=== PATIENT | female | born 1945 | race Caucasian/White ===

== ENCOUNTER 2020-12-04 14:49 | Outpatient (CLI) | payer MEDICARE, SELFPAY ==
--- NOTE | ~2020-12-04 | XR_ITS ---
XR_CERV2-3V_CR DATE: 12/04/2020 15:31 INDICATION: Neck pain TECHNIQUE: AP, open-mouth, lateral, swimmer's views COMPARISON: None FINDINGS: Diffuse osteopenia. C1 and C2 are normally aligned and the odontoid process is intact. No fracture or prevertebral soft t issue swelling is detected. There is 2 mm anterolisthesis at C4-5. There is mild degenerative disc disease at the upper and mid cervical spine and moderate to severe de generative disc disease at C5-6 and C6-7. There is degenerative change at the apophyseal joints throughout the cervical spine. IMPRESSION: Extensive cervical spondylosis Reviewed, dictated and finalized at Location [facility]. Reviewed, dictated and finalized at location A.
--- NOTE | ~2020-12-04 | XR_ITS ---
XR thoracic spine 2V DATE: 12/04/2020 15:31 INDICATION: Osteoporosis TECHNIQUE: AP, lateral, swimmer views COMPARISON: None FINDINGS: There is severe degenerative disc disease at C5-6 and C6-7. There is diffuse idiopathic skeletal hyperostosis of the thoracic and upper lumbar spine. No fracture or dislocation or bone destruction is evident. IMPRESSION: Prominent degenerative disc disease of lower cervical spine Diffuse idiopathic skeletal hyperostosis of the thoracic spine Reviewed, dictated and finalized at location A.
--- NOTE | ~2020-12-04 | XR_ITS ---
EXAMINATION: XR mandible min 4V EXAM DATE: 12/04/2020 15:31 INDICATION: M81.0 - Age-related osteoporosis without current pathological fracture . TECHNIQUE: Mandible frontal, bilateral lateral projections with angulation. Steep frontal projection . (4 images) There is no prior study for comparison. FINDINGS: The temporomandibular joints are unremarkable, no dislocation and evidence of only mild os teoarthritis. There are no acute fractures identified. Dental hardware. The soft tissue is unremarkab le. IMPRESSION: 1. Mild bilateral TMJ osteoarthritis. Reviewed, dictated and finalized at location A.
== END 2020-12-04 14:50 | disposition home or self-care (01) ==
LOC: ANHIMG 14:52
PROVIDERS: PCP Internal Medicine; Visit Provider Internal Medicine
DX: M81.0 Age-related osteoporosis without current pathological fracture (principal); M40.209 Unspecified kyphosis, site unspecified; M50.30 Other cervical disc degeneration, unspecified cervical region; M48.14 Ankylosing hyperostosis [Forestier], thoracic region; M47.892 Other spondylosis, cervical region
CPT/HCPCS: 70110; 72040; 72070

== ENCOUNTER 2020-12-25 15:31 | Outpatient (CLI) | payer MEDICARE, SELFPAY ==
--- NOTE | ~2020-12-25 | CT_ITS ---
EXAMINATION: CT abdomen pelvis wo con DATE: 12/25/2020 15:49 INDICATION: Hematuria TECHNIQUE: Computed tomography (CT) of the abdomen and pelvis was performed without intravenous contr ast. The dose-length product (DLP) was 705.12 mGy-cm. Automated exposure control and iterative recons truction technique were employed. COMPARISON: None FINDINGS: There are subpleural reticular and groundglass opacities of the visualized lung bases with an appearance consistent with chronic interstitial lung disease in a pattern of nonspecific interstit ial pneumonia (NSIP). The heart size is normal. The liver, spleen, pancreas, gallbladder, and adrenal glands are normal. The kidneys are unremarkable. No stones are identified in the kidneys or proximal ureters. The distal ureters and bladder are obscured by streak artifact from bilateral hip arthropla sties. There is no hydronephrosis or hydroureter. Colonic diverticulosis is present without evidence of diverticulitis. No pathologically enlarged abdominal or pelvic lymph nodes are identified. There i s no free intraperitoneal gas or evidence of bowel obstruction. There are bridging osteophytes at mul tiple levels in the visualized thoracic spine, consistent with diffuse idiopathic skeletal hyperostos is (DISH). There is moderate lumbar spondylosis. IMPRESSION: 1. No CT correlate for the patient's symptoms. Bladder is not evaluated due to streak artifact from h ip arthroplasties. Reviewed, dictated and finalized at location B. IMPRESSION: 1. No CT correlate for the patient's symptoms. Bladder is not evaluated due to streak artifact from hip arthroplasties.
== END 2020-12-25 15:32 | disposition home or self-care (01) ==
LOC: ANHIMG 15:32
PROVIDERS: PCP Internal Medicine; Visit Provider Internal Medicine
DX: R31.9 Hematuria, unspecified (principal)
CPT/HCPCS: 74176

== ENCOUNTER 2021-01-08 01:05 | Day surgery (SDC) | payer MEDICARE, SELFPAY ==
[2020-12-26 14:46] VITALS: BMI 31.2
--- NOTE | 2021-01-08 07:22 | P.HP_ITS ---
History of Present Illness History of Present Illness Consent: Risks, benefits, and alternatives have been discussed and questions answered. Patient agrees to proceed with procedure. Chief complaint: hx of colon polyps Narrative: Merari Elmore is a 75 year old female Here for colon cancer screening. She has a history of polyps Review of Systems Review of Systems: All systems reviewed & are unremarkable except as noted in HPI and below PMFSH Past Medical History Medical History Abnormal CT scan Anxiety with depression BMI 31.0-31.9,adult Breast cancer screening DJD (degenerative joint disease) of cervical spine Dry eyes Elevated homocysteine Encounter to establish care FHx: type 2 diabetes mellitus Follow up Hematuria Hx of colonic polyps Hyperlipidemia Hypothyroidism (acquired) On intermodal customer service drug therapy Osteoporosis Pre-diabetes Surgical History Surgical History History of total replacement of both hip joints History of total right knee replacement Hx of tonsillectomy Family History Family History Father Cerebrovascular accident Other Family history of malignant neoplasm of breast Social History Social History Smoking status: Never smoker Alcohol intake: current Living arrangements: alone Spiritual care concerns: No Meds Home Medications and Allergies Home Medications Medication Instructions Recorded Confirmed Type calcium citrate 250 mg 1 tablet PO DAILY 11/26/20 01/08/21 History calcium-vitamin D3 5 mcg (200 unit) tablet cetirizine 10 mg tablet 10 mg PO DAILY 11/26/20 01/07/21 History cholecalciferol (vitamin D3) 125 125 mcg PO DAILY 11/26/20 01/07/21 History mcg (5,000 unit) capsule ezetimibe 10 mg tablet 10 mg PO DAILY 11/26/20 01/07/21 History levothyroxine 100 mcg capsule 100 mcg PO DAILY 11/26/20 01/07/21 History venlafaxine 75 mg capsule,extended 75 mg PO DAILY #90 cap 11/26/20 01/07/21 Rx release 24 hr folic acid 800 mcg tablet 0.8 mg PO DAILY 01/05/21 01/08/21 History mecobalamin (vitamin B12) 1,000 1,000 mcg SUBLINGUAL DAILY 01/05/21 01/08/21 History mcg disintegrating tablet,sublingual Allergies Allergy/AdvReac Type Severity Reaction Status Date / Time No Known Allergies Allergy Verified 01/05/21 14:48 Exam Resp: Auscultation: clear to auscultation bilaterally Cardio: Rate: regular rate Rhythm: regular rhythm GI: GI Palp: Yes Soft to palpation and No Tenderness to palpation present (GI) Assessment and Plan Assessment and plan (1) Colon cancer screening: Code(s): Z12.11 - Encounter for screening for malignant neoplasm of colon Status: Acute Assessment and Plan: Colonoscopy with possible biopsy or polypectomy or cautery or injection of substances.
[2021-01-08 08:02] VITALS: BP 134/56; PULSE 77; RESP 18; TEMP 36.3; O2SAT 98; BMI 30.7
[2021-01-08] MEDS: LACTATED RINGERS 1,000 ML 150 ML IV CONT (08:20)
--- NOTE | 2021-01-08 08:43 | P.PNAN_ITS ---
Anes - Initial Pre Proc Eval Procedure: Operation Date: 01/08/21 09:00 Proposed Procedures p Screening Colonoscopy - Anson Jay MD Date/Time: 01/08/21 08:43 Surgeon: Anson Jay MD Pre Op Diagnosis: hx of colon polyps Patient Data Age: 75 Gender: F Height: 1.6 m Weight: 78.83 kg Last Vital Signs Temp 97.3 F L 01/08/21 08:02 Pulse 77 01/08/21 08:02 Resp 18 01/08/21 08:02 BP 134/56 L 01/08/21 08:02 Pulse Ox 98 01/08/21 08:02 Allergies Allergy/AdvReac Type Severity Reaction Status Date / Time No Known Allergies Allergy Verified 01/05/21 14:48 Home Medications Medication Instructions Recorded Confirmed Type calcium citrate 250 mg 1 tablet PO DAILY 11/26/20 01/08/21 History calcium-vitamin D3 5 mcg (200 unit) tablet cetirizine 10 mg tablet 10 mg PO DAILY 11/26/20 01/07/21 History cholecalciferol (vitamin D3) 125 125 mcg PO DAILY 11/26/20 01/07/21 History mcg (5,000 unit) capsule ezetimibe 10 mg tablet 10 mg PO DAILY 11/26/20 01/07/21 History levothyroxine 100 mcg capsule 100 mcg PO DAILY 11/26/20 01/07/21 History venlafaxine 75 mg capsule,extended 75 mg PO DAILY #90 cap 11/26/20 01/07/21 Rx release 24 hr folic acid 800 mcg tablet 0.8 mg PO DAILY 01/05/21 01/08/21 History mecobalamin (vitamin B12) 1,000 1,000 mcg SUBLINGUAL DAILY 01/05/21 01/08/21 History mcg disintegrating tablet,sublingual Patient hx anesthesia problems: none Family hx anesthesia problems: none PMFSH Past Medical History Medical History Abnormal CT scan Anxiety with depression BMI 31.0-31.9,adult Breast cancer screening DJD (degenerative joint disease) of cervical spine Dry eyes Elevated homocysteine Encounter to establish care FHx: type 2 diabetes mellitus Follow up Hematuria Hx of colonic polyps Hyperlipidemia Hypothyroidism (acquired) On residential drug therapy Osteoporosis Pre-diabetes Surgical History Surgical History History of total replacement of both hip joints History of total right knee replacement Hx of tonsillectomy Family History Family History Father Cerebrovascular accident Other Family history of malignant neoplasm of breast Social History Social History Smoking status: Never smoker Alcohol intake: current Living arrangements: alone Spiritual care concerns: No Anes - Eval Final PreProcedure Day of Procedure 01/08/21 08:43 Patient weight: overweight Heart: regular rate and rhythm Lungs: clear to auscultation Airway: Mallampati scale class II Neurological: alert and oriented Last oral intake: >/= 8 hours ASA classification: III Emergent: no Anesthetic plan: proceed Anesthesia type and monitoring: general GIVS and standard monitoring Informed Consent: The patient's anesthetic plan and its attendant risks and benefits were discussed with the patient/family/POA. Questions were solicited and answers provided to the satisfaction of the patient/family/POA.
[2021-01-08 09:17] VITALS: BP 88/58; PULSE 89; RESP 20; O2SAT 97
[2021-01-08 09:27] VITALS: BP 92/53; PULSE 86; RESP 20; O2SAT 95
[2021-01-08 09:37] VITALS: BP 112/51; PULSE 76; RESP 16; O2SAT 100
== END 2021-01-08 09:53 | disposition home or self-care (01) ==
PROVIDERS: PCP Internal Medicine; Visit Provider Internal Medicine Gastroenterology
PROC: 0DJD8ZZ Inspection of Lower Intestinal Tract, Via Natural or Artificial Opening Endoscopic (ICD-10-PCS; CPT 45378; principal; 2021-01-08 09:00)
DX: Z12.11 Encounter for screening for malignant neoplasm of colon (principal); Z86.010 Personal history of colon polyps; K57.30 Diverticulosis of large intestine without perforation or abscess without bleeding; E78.5 Hyperlipidemia, unspecified; E03.9 Hypothyroidism, unspecified; M47.812 Spondylosis without myelopathy or radiculopathy, cervical region; M81.0 Age-related osteoporosis without current pathological fracture; H04.129 Dry eye syndrome of unspecified lacrimal gland; R73.03 Prediabetes; F32.9 Major depressive disorder, single episode, unspecified; F41.9 Anxiety disorder, unspecified; Z96.643 Presence of artificial hip joint, bilateral; Z96.651 Presence of right artificial knee joint; Z79.899 Other long term (current) drug therapy
CPT/HCPCS: G0105; J2001; J2704; J7120

== ENCOUNTER 2021-01-23 10:00 | Emergency (ER) | payer MEDICARE, SELFPAY ==
--- NOTE | ~2021-01-23 | XR_ITS ---
EXAMINATION: XR chest 2V EXAM DATE: 01/23/2021 10:45 INDICATION: Palpitations. TECHNIQUE: Frontal and lateral projections of the chest obtained and reviewed. Comparison is made to prior examination from 2004. FINDINGS: Some prominent retrocardiac interstitial markings, could be small amount of atelectasis or pneumonia, clinical correlation. No pneumothorax or pleural effusion. Borderline heart size. There a re mild bony degenerative changes. Patient has diffuse idiopathic skeletal hyperostosis (DISH). IMPRESSION: Small amount of retrocardiac atelectasis or pneumonia. Reviewed, dictated and finalized at location A.
--- NOTE | 2021-01-23 10:05 | ECG_ITS ---
Measurements Intervals [place] Rate: 92 P: [place]: 0 QRS: -11 QRSD: 91 T: 83 QT: 342 QTc: 425 Interpretive Statements ATRIAL FIBRILLATION LEFT VENTRICULAR HYPERTROPHY WITH ST-T CHANGE INFERIOR INFARCT, AGE INDETERMINATE BASELINE ARTIFACT- I, II, III, AVR, AVL, AVF ABNORMAL ECG Electronically Signed On 01-23-2021 19:00:43 CDT by Hussain Hagan D.O.
[2021-01-23 10:08] VITALS: BP 152/69; PULSE 108; RESP 14; TEMP 36.2; O2SAT 96
[2021-01-23 12:00] VITALS: BP 118/78; BP 121/75; PULSE 78; PULSE 89; RESP 18; O2SAT 100
--- NOTE | 2021-01-23 12:57 | ED.ARRPALP ---
HPI - Arrhythmia/Palpitations General Chief Complaint: Arrhythmia/Palpitations Stated Complaint: afib Time Seen by Provider: 01/23/21 12:49 History of Present Illness HPI narrative: Patient is a 75-year-old female who presents ER with an abnormal heart rhythm. Patient was at her PCP for routine evaluation when it was found that she was in atrial fibrillation on EKG. She has no chest pain or chest pressure. No exertional fatigue or shortness of breath. She does not feel lightheaded and does not feel any palpitations. No previous history of atrial fibrillation however her mother and her daughter both have history of atrial fibrillation. Patient is on no rate control medications and is not on a blood thinner. No previous stroke. No history of heart failure or diabetes. Related Data Home Medications Medication Instructions Recorded Confirmed calcium citrate 250 mg 1 tablet PO DAILY 11/26/20 01/08/21 calcium-vitamin D3 5 mcg (200 unit) tablet cetirizine 10 mg tablet 10 mg PO DAILY 11/26/20 01/07/21 cholecalciferol (vitamin D3) 125 125 mcg PO DAILY 11/26/20 01/07/21 mcg (5,000 unit) capsule ezetimibe 10 mg tablet 10 mg PO DAILY 11/26/20 01/07/21 levothyroxine 100 mcg capsule 100 mcg PO DAILY 11/26/20 01/07/21 folic acid 800 mcg tablet 0.8 mg PO DAILY 01/05/21 01/08/21 mecobalamin (vitamin B12) 1,000 1,000 mcg SUBLINGUAL DAILY 01/05/21 01/08/21 mcg disintegrating tablet,sublingual Allergies Allergy/AdvReac Type Severity Reaction Status Date / Time No Known Allergies Allergy Verified 01/23/21 12:34 Review of Systems Review of Systems: All systems reviewed & are unremarkable except as noted in HPI and below Constitutional: Constitutional: Denies chills, Denies fever(s) and Denies weakness ENT: Denies nasal congestion and Denies sore throat Cardiovascular: Cardiovascular: Denies chest pain, Denies rapid heart rate and Denies radiating jaw, neck or arm pain Respiratory: Respiratory: Denies cough, Denies dyspnea and Denies wheezing Gastrointestinal: Gastrointestinal: Denies abdominal pain, Denies nausea and Denies vomiting Neurologic: Denies dizziness, Denies focal weakness and Denies numbness [facility] Past Medical History Medical History Abnormal CT scan Anxiety with depression BMI 31.0-31.9,adult Breast cancer screening DJD (degenerative joint disease) of cervical spine Dry eyes Elevated homocysteine Encounter to establish care FHx: type 2 diabetes mellitus Follow up Hematuria Hx of colonic polyps Hyperlipidemia Hypothyroidism (acquired) On skilled nursing drug therapy Osteoporosis Pre-diabetes Surgical History Surgical History History of total replacement of both hip joints History of total right knee replacement Hx of tonsillectomy Family History Family History Father Cerebrovascular accident Other Family history of malignant neoplasm of breast Social History Social History Smoking status: Never smoker Alcohol intake: current Spiritual care concerns: No Exam Narrative: GENERAL: Well-appearing, well-nourished, and in no acute distress. HEAD: Normocephalic, atraumatic. EYES: PERRL and EOMI. CHEST: Clear to auscultation. No respiratory distress. HEART: Irregular regular rate and rhythm. Normal peripheral pulses. ABDOMEN: Soft, nontender, nondistended. EXTREMITIES: Normal range of motion. No edema. SKIN: Warm, dry, no rash. NEURO: Alert and oriented x3. PSYCH: Normal mood and affect. Course Course Emergency Course: Discussed with Mary from [facility]. Start patient on metoprolol 12.5 mg twice daily as well as Eliquis 5 mg twice daily. Recommends follow-up in clinic for discussion for cardioversion. Patient verbalized understanding. She is asymptomatic
[2021-01-23 13:02] LABS: Basophils Absolute Auto 0.1 K/mm3 (0.0-0.1); Basophils Percent Auto 0.7 % (0.2-1.2); Eosinophils Absolute Auto 0.2 K/mm3 (0-0.3); Hemoglobin 14.3 g/dL (12.0-15.0); Immature Granulocyte Absolute 0.03 K/mm3 (0.00-0.031); Immature Granulocyte Percent A 0.4 % (0-0.5); Lymphocytes Absolute Auto 1.66 K/mm3 (0.9-3.2); Lymphocytes Percent Auto 21.7 % (18.3-44.2); Mean Corpuscular HGB Conc 32.5 g/dl (32-36); Mean Corpuscular Hemoglobin 31.4 pg (26-34); Mean Corpuscular Volume 96.7 fl (80-100); Mean Platelet Volume 10.5 fl (7.4-10.4); Monocytes Absolute Auto 0.7 K/mm3 (0.1-0.6); Monocytes Percent Auto 9.5 % (2.6-8.5); Neutrophils Percent Auto 65.7 % (45.5-73.1); Platelet Count Result 268 k/mm3 (150-375); Red Blood Count 4.55 M/mm3 (4.2-5.4); Red Cell Distribution Width 13.2 % (11.5-14.5); White Blood Count 7.7 K/mm3 (4.5-10.0)
[2021-01-23 13:14] LABS: Prothrombin Time 12.8 Seconds (11.1-14.7)
[2021-01-23 13:15] LABS: Partial Thromboplastin Time 28.6 SECONDS (22.3-36.8)
[2021-01-23 13:16] LABS: Anion Gap 6 mmol/L (8-16); Blood Urea Nitrogen 27 mg/dL (7-17); Calcium 9.7 mg/dL (8.4-10.2); Carbon Dioxide 27 mmol/L (22-30); Chloride 104 mmol/L (98-107); Estimated CRCL calculation 39 ml/min; Estimated Glomerular Filt Rate 48; Glucose 94 mg/dL (65-110); Potassium 4.2 mmol/L (3.4-5.0); Sodium 137 mmol/L (137-145)
[2021-01-23 13:27] LABS: Troponin I < 0.012 ng/mL (0.000-0.034)
[2021-01-23 14:00] VITALS: BP 120/75; PULSE 78; RESP 18; O2SAT 100
[2021-01-23 14:01] LABS: Magnesium 2.3 mg/dL (1.6-2.3)
[2021-01-23 14:13] LABS: Troponin I < 0.012 ng/mL (0.000-0.034)
== END 2021-01-23 15:57 | disposition home or self-care (01) ==
PROVIDERS: Emergency Medicine; Emergency Provider Emergency Medicine; PCP Internal Medicine
DX: I48.91 Unspecified atrial fibrillation (principal); E78.5 Hyperlipidemia, unspecified; E03.9 Hypothyroidism, unspecified; M81.0 Age-related osteoporosis without current pathological fracture; R73.03 Prediabetes; M47.812 Spondylosis without myelopathy or radiculopathy, cervical region; Z86.010 Personal history of colon polyps; Z96.643 Presence of artificial hip joint, bilateral; Z96.651 Presence of right artificial knee joint; I51.7 Cardiomegaly; R94.31 Abnormal electrocardiogram [ECG] [EKG]
CPT/HCPCS: 36415; 71046; 80048; 83735; 84484; 85025; 85610; 85730; 93005; 99284

== ENCOUNTER 2021-02-17 09:52 | Outpatient (CLI) | payer MEDICARE, SELFPAY ==
--- NOTE | 2021-02-17 09:56 | ECHO_ITS ---
Patient Info Name: Merari Elmore Age: 75 years : 1945 Gender: Female Ht: 63 in Wt: 178 lbs BSA: 1.92 m2 HR: 91 bpm BP: 127 / 65 mmHg Exam Date: 02/17/2021 9:59 AM Exam Location: [facility] Patient Status: Outpatient Admit Date: 02/17/2021 Staff Ordering Physician: Homer Reveles MD [place] Worker: GRACIA Attending Provider: Homer Reveles MD Referring Physician: Abdirizak BROWN; Exam Type: CA echo doppler color flow Study Info Indications I48.1 - Persistent atrial fibrillation Complete two-dimensional, color flow and Doppler transthoracic echocardiogram is performed. Summary 1. Complete two-dimensional, color flow and Doppler transthoracic echocardiogram is performed. 2. Left ventricular chamber dimension is mildly enlarged. 3. Left ventricular systolic function is normal, estimated at 55-60%. 4. The left ventricular diastolic function is abnormal. 5. E/e' 15 is elevated. 6. Left atrial chamber dimension is severely enlarged. 7. There is mild aortic valve sclerosis. 8. There is mild to moderate aortic valve regurgitation. 9. The mitral valve has moderately calcified annulus. 10. There is mild to moderate mitral valve regurgitation. 11. No pulmonary hypertension, estimated pulmonary arterial systolic pressure is 24 mmHg. Left Ventricle E/e' 15 is elevated. Left ventricular chamber dimension is mildly enlarged. Left ventricular systolic function is normal, estimated at 55-60%. The left ventricular diastolic function is abnormal. Right Ventricle Right ventricular chamber dimension is normal. Right ventricular systolic function is normal. Left Atria Left atrial chamber dimension is severely enlarged. Right Atria Right atrial chamber dimension is normal. Aortic Valve The aortic valve is trileaflet. There is mild aortic valve sclerosis. There is no aortic valve stenosis. There is mild to moderate aortic valve regurgitation. Pulmonic Valve There is no pulmonic regurgitation. Mitral Valve The mitral valve has moderately calcified annulus. There is no mitral valve stenosis. There is mild to moderate mitral valve regurgitation. Tricuspid Valve There is no tricuspid valve regurgitation. No pulmonary hypertension, estimated pulmonary arterial systolic pressure is 24 mmHg. Pericardium/Pleural There is no pericardial effusion. Inferior Vena Cava Normal inferior vena cava with >50% collapse upon inspiration consistent with normal right atrial pressure, 5 mmHg. Aorta The aortic root size at the sinus of Valsalva is normal. Left Ventricular Outflow Tract Name Value Normal LVOT 2D LVOT Diameter 2.2 cm LVOT Doppler LVOT Peak Gradient 17 mmHg LVOT Mean Gradient 5 mmHg LVOT VTI 30 cm LVOT VTI/AV VTI Ratio 0.9 LVOT Stroke Volume 115 ml LVOT CO 24.0 l/min LVOT CI 12.5 l/min/m2 Mitral Valve
== END 2021-02-17 09:53 | disposition home or self-care (01) ==
PROVIDERS: PCP Internal Medicine; Visit Provider Internal Medicine
DX: I48.91 Unspecified atrial fibrillation (principal); I34.0 Nonrheumatic mitral (valve) insufficiency; I35.1 Nonrheumatic aortic (valve) insufficiency
CPT/HCPCS: 93306

== ENCOUNTER → 2021-02-20 09:39 | Outpatient (CLI) | payer MEDICARE, SELFPAY ==
--- NOTE | ~2021-02-20 | CT_ITS ---
EXAMINATION:CT chest high resolution wo co DATE: 02/20/2021 09:55 INDICATION: Abnormal findings on diagnostic imaging. TECHNIQUE: Computed tomography (CT) of the chest was performed without intravenous contrast. Automate d exposure control and iterative reconstruction technique were employed. The dose-length product (DLP ) was 320.54 mGy-cm. COMPARISON: Chest 2 views 01/23/2021, CT abdomen and pelvis 12/25/2020 FINDINGS: Lung volumes are small. There is widespread septal thickening in the lungs with a periphera l and lower lung predominance associated with groundglass opacities. No bronchiectasis or honeycombin g. No pleural effusion. The heart size is normal. No pericardial effusion. There are bridging endplat e osteophytes at multiple levels in the spine, consistent with diffuse idiopathic skeletal hyperostos is (DISH). There is mild chronic height loss of multiple vertebral bodies. IMPRESSION: 1. Chronic interstitial lung disease in a pattern of nonspecific interstitial pneumonia (NSIP). Reviewed, dictated and finalized at location A. IMPRESSION: 1. Chronic interstitial lung disease in a pattern of nonspecific interstitial p neumonia (NSIP).
== END ==
PROVIDERS: PCP Internal Medicine; Visit Provider Internal Medicine
DX: R93.89 Abnormal findings on diagnostic imaging of other specified body structures (principal); J84.9 Interstitial pulmonary disease, unspecified
CPT/HCPCS: 71250

== ENCOUNTER 2021-04-21 11:30 | Outpatient (CLI) | payer MEDICARE, SELFPAY ==
[2021-04-21 12:25] LABS: Rheumatoid Factor < 8.6 IU/ML (<12)
[2021-04-23 11:39] LABS: Anti Cyclic Citrullinated Pept <16 Units (<20)
[2021-04-23 20:58] LABS: JO 1 Antibody <1.0; Scleroderma 70 Antibody <1.0
[2021-04-23 21:13] LABS: SS-A <1.0; SS-B <1.0
[2021-04-23 21:33] LABS: ANA Cascade Screen Positive (Negative); Chromatin (Nucleosomal) Ab <1.0; RNP Antibody 5.1; Sm Antibody <1.0; Sm/RNP Antibody <1.0
== END 2021-04-21 11:31 | disposition home or self-care (01) ==
LOC: ANHLAB 11:44
PROVIDERS: PCP Internal Medicine; Visit Provider Internal Medicine Pulmonary Disease
DX: J84.9 Interstitial pulmonary disease, unspecified (principal)
CPT/HCPCS: 36415; 86038; 86200; 86235; 86430

== ENCOUNTER 2021-06-04 00:06 | Day surgery (SDC) | payer MEDICARE, SELFPAY ==
[2021-06-03 14:47] VITALS: BMI 31.2
[2021-06-04] VITALS (10 sets, daily range): BP systolic 105–140; BP diastolic 48–62; PULSE 50–75; RESP 13–18; TEMP 36.6; O2SAT 96–100; BMI 31.6
--- NOTE | 2021-06-04 07:30 | ECG_ITS ---
Measurements Intervals [place] Rate: 69 P: 71 [place]: 201 QRS: -5 QRSD: 85 T: 145 QT: 302 QTc: 325 Interpretive Statements SINUS RHYTHM FREQUENT ATRIAL PREMATURE COMPLEXES EARLY PRECORDIAL R/S TRANSITION INFERIOR INFARCT, AGE INDETERMINATE BORDERLINE ST-T WAVE ABNORMALITY- HIGH LATERAL LEADS BASELINE ARTIFACT- I, II, AVR ABNORMAL ECG Electronically Signed On 06-04-2021 10:01:16 MATHEMATICAL STATISTICIAN by Hussain Hagan D.O.
[2021-06-04 08:16] LABS: Anion Gap 7 mmol/L (8-16); Blood Urea Nitrogen 28 mg/dL (7-17); Calcium 9.3 mg/dL (8.4-10.2); Carbon Dioxide 29 mmol/L (22-30); Chloride 105 mmol/L (98-107); Estimated CRCL calculation 29 ml/min; Estimated Glomerular Filt Rate 34; Glucose 95 mg/dL (65-110); Magnesium 2.3 mg/dL (1.6-2.3); Potassium 4.2 mmol/L (3.4-5.0); Sodium 141 mmol/L (137-145)
--- NOTE | 2021-06-04 09:00 | ECG_ITS ---
Measurements Intervals [place] Rate: 72 P: [place]: 0 QRS: -1 QRSD: 91 T: 126 QT: 398 QTc: 437 Interpretive Statements ATRIAL FIBRILLATION CONSIDER INFERIOR INFARCT, AGE INDETERMINATE BORDERLINE ST ABNORMALITY- LATERAL LEADS BASELINE ARTIFACT- I, II, AVR, AVL,A VF, V4-V6 ABNORMAL ECG Electronically Signed On 06-04-2021 8:42:30 SUPERVISOR [employer]GAR by Hussain Hagan D.O.
--- NOTE | 2021-06-04 09:56 | WPDMODSED ---
Moderate Sedation Note-Pt Data Patient Data Allergies Allergy/AdvReac Type Severity Reaction Status Date / Time No Known Allergies Allergy Verified 06/04/21 08:21 Home Medications Medication Instructions Recorded Confirmed Type cholecalciferol (vitamin D3) 125 125 mcg PO DAILY 11/26/20 06/03/21 History mcg (5,000 unit) capsule levothyroxine 100 mcg capsule 100 mcg PO DAILY 11/26/20 06/03/21 History folic acid 800 mcg tablet 0.8 mg PO DAILY 01/05/21 06/03/21 History apixaban 5 mg tablet 5 mg PO BID #60 tablet 02/23/21 06/03/21 Rx ezetimibe 5 mg PO DAILY 06/03/21 06/03/21 History metoprolol succinate [Toprol XL] 25 mg PO BID 06/03/21 06/03/21 History Current Medications: Active Medications Sodium Chloride (Normal Saline Iv) 1,000 mls @ 30 mls/hr IV CONT .Q24H ARACELY Sedation/Anesthesia: No previous sedation/anesthesia problems (including family history). [facility] Past Medical History Medical History Abnormal CT scan Anxiety with depression Atrial fibrillation BMI 31.0-31.9,adult Breast cancer screening Cerumen impaction Cervicalgia DJD (degenerative joint disease) of cervical spine Dry eyes Elevated homocysteine Encounter for routine adult health examination without abnormal findings Encounter to establish care FHx: type 2 diabetes mellitus Follow up Hearing loss Hematuria Hx of colonic polyps Hyperlipidemia Hypothyroidism (acquired) Interstitial lung disease On intermediate accountant drug therapy Osteoporosis Pre-diabetes Surgical History Surgical History History of total replacement of both hip joints History of total right knee replacement Hx of bilateral hip replacements Hx of tonsillectomy Family History Family History Father Cerebrovascular accident Mother Atrial fibrillation Other Family history of malignant neoplasm of breast Social History Social History Smoking status: Never smoker Alcohol intake: never Living arrangements: alone Spiritual care concerns: No Mod Sed Physical Exam Physical Exam Pre Procedural Exam: Normal: Appearance, Eyes, Ears, Nose, Neck, Throat, Airway, Lungs, Heart Size, Heart Rate, Heart Rhythm, Neuro Exam, Abdomen, Liver, Kidneys, Spleen, Breasts, Genitalia, Extremities and Skin Hours since solid foods: 8 Hours since liquid intake: 8 Mallampati Classification: class 1 Internal Medicine - PN: Obj Da Vital Signs Vital Signs: Vital Signs - 24 hr 06/04/21 08:00 Temperature 36.6 C Pulse Rate 75 Respiratory Rate 13 Blood Pressure 140/55 L Pulse Oximetry 98 Meds/Results Medications: Active Medications Generic Name Dose Route Start Last Admin Trade Name Freq PRN Reason Stop Dose Admin Sodium Chloride 1,000 mls @ 30 mls/hr 06/04/21 07:30 Normal Saline Iv IV CONT .Q24H ARACELY Labs CBC & Chem 7: 06/04/21 07:49 Labs: Laboratory Results - last 24 hr 06/04/21 07:49 Sodium 141 Potassium 4.2 Chloride 105 Carbon Dioxide 29 Anion Gap 7 L BUN 28 H Creatinine 1.50 H Estim Creat Clear Calc 29 Estimated GFR 34 L Glucose 95 Calcium 9.3 Magnesium 2.3 ASA Classification/Sedation ASA Classification/Sedation ASA Class: I Emergent: No Risks: Risks, benefits and alternatives explained and patient/family accepted plan for sedation. Patient re-evaluated immediately prior to sedation.
--- NOTE | 2021-06-04 09:57 | PM.IMHP ---
H&P: HPI History of Present Illness Date/Time: 06/04/21 09:57 Patient is here for cardioversion Chief Complaint: Patient is here for cardioversion Narrative: This 76-year-old female with past medical history of hyperlipidemia, hypothyroidism, atrial fibrillation on Eliquis. Complains of shortness of breath on exertion. Due to persistent symptoms we brought her in here for cardioversion. Denies chest pain, lower limb edema, dizziness, syncope. Review of Systems Review of Systems: All systems reviewed & are unremarkable except as noted in HPI and below Constitutional: Constitutional: Denies chills, Denies fatigue, Denies fever(s), Denies headache(s) and Denies snoring Eyes: Eyes: Denies eye discharge and Denies loss of vision ENT: Denies dizziness, Denies headache(s), Denies nasal discharge and Denies sore throat Cardiovascular: Cardiovascular: Reports as per HPI, Denies chest pain, Denies syncope, Denies rapid heart rate, Denies leg edema, Reports dyspnea on exertion and Denies orthopnea Respiratory: Respiratory: Denies chest congestion, Denies cough, Reports dyspnea on exertion, Denies snoring and Denies wheezing Gastrointestinal: Gastrointestinal: Denies abdominal pain, Denies diarrhea, Denies nausea and Denies vomiting Genitourinary: Genitourinary: Denies hematuria, Denies urinary frequency, Denies dysuria and Denies flank pain Musculoskeletal: Musculoskeletal: Denies myalgias, Denies arthralgias and Denies joint swelling Neurologic: Denies Abnormal speech present, Denies dizziness, Denies syncope, Denies headache(s), Denies focal weakness and Denies loss of vision Psychiatric: Psychiatric: Denies anxiety and Denies depression Endocrine: Endocrine: Denies cold intolerance, Denies fatigue and Denies heat intolerance Hematologic/Lymphatic: Hematologic/Lymphatic: Denies easy bleeding and Denies easy bruising Allergic/Immunologic: Allergic/Immunologic: Denies urticaria and Denies wheezing PMFSH Past Medical History Medical History Abnormal CT scan Anxiety with depression Atrial fibrillation BMI 31.0-31.9,adult Breast cancer screening Cerumen impaction Cervicalgia DJD (degenerative joint disease) of cervical spine Dry eyes Elevated homocysteine Encounter for routine adult health examination without abnormal findings Encounter to establish care FHx: type 2 diabetes mellitus Follow up Hearing loss Hematuria Hx of colonic polyps Hyperlipidemia Hypothyroidism (acquired) Interstitial lung disease On intermediate designer drug therapy Osteoporosis Pre-diabetes Surgical History Surgical History History of total replacement of both hip joints History of total right knee replacement Hx of bilateral hip replacements Hx of tonsillectomy Family History Family History Father Cerebrovascular accident Mother Atrial fibrillation Other Family history of malignant neoplasm of breast Social History Social History Smoking status: Never smoker Alcohol intake: never Living arrangements: alone Spiritual care concerns: No Meds Home Medications and Allergies Home Medications Medication Instructions Recorded Confirmed Type cholecalciferol (vitamin D3) 125 125 mcg PO DAILY 11/26/20 06/03/21 History mcg (5,000 unit) capsule levothyroxine 100 mcg capsule 100 mcg PO DAILY 11/26/20 06/03/21 History folic acid 800 mcg tablet 0.8 mg PO DAILY 01/05/21 06/03/21 History apixaban 5 mg tablet 5 mg PO BID #60 tablet 02/23/21 06/03/21 Rx ezetimibe 5 mg PO DAILY 06/03/21 06/03/21 History metoprolol succinate [Toprol XL] 25 mg PO BID 06/03/21 06/03/21 History Allergies Allergy/AdvReac Type Severity Reaction Status Date / Time No Known Allergies Allergy Verified 06/04/21 08:21 Vital Signs Vital Signs - 24
--- NOTE | 2021-06-04 10:06 | WPDCARDVER ---
Cardioversion Cardioversion Date of procedure: 06/04/21 Procedure: 1. Moderate sedation that started at 9:40 a.m. and ended at 9:45 a.m. using 3 mg of Versed and 75 mcg fentanyl. A registered nurse was elliot casanova 2-electric cardioversion atrial fibrillation Pre-op diagnosis: Persistent symptomatic atrial fibrillation Post-op diagnosis: other (Sinus rhythm) Indications: Persistent shortness of breath exertion Description of procedure: After informed consent . Patient stated that she was taking Eliquis twice a day for the last 1 month. She took Eliquis and metoprolol this morning. We administered sedation and then after that 200 joules of synchronized cardioversion was applied with successful conversion to sinus rhythm with premature atrial contractions. Sedation: Moderate sedation that started at 9:40 a.m. and ended at 9:45 a.m. a total duration 5 minutes using 3 mg of Versed and 75 mcg of control. Adjust meds was Elliot casanova. Findings: Successful conversion of atrial fibrillation to sinus rhythm with PACs. Conclusion: Will discontinue metoprolol and start low does amiodarone to help keep her in sinus rhythm. EKG in our office in 2 weeks
[2021-06-04] MEDS: AMIODARONE 150 MG/D5W 100 ML 150 MG/100 ML BAG 600 MG IV CONT (11:05)
== END 2021-06-04 11:46 | disposition home or self-care (01) ==
PROVIDERS: PCP Internal Medicine; Visit Provider Internal Medicine Cardiovascular Disease
PROC: 5A2204Z Restoration of Cardiac Rhythm, Single (ICD-10-PCS; principal; 2021-06-04 09:00)
DX: I48.19 Other persistent atrial fibrillation (principal); E78.5 Hyperlipidemia, unspecified; E03.9 Hypothyroidism, unspecified; R73.03 Prediabetes; F41.8 Other specified anxiety disorders; J84.9 Interstitial pulmonary disease, unspecified; M81.0 Age-related osteoporosis without current pathological fracture; Z79.01 Long term (current) use of anticoagulants
CPT/HCPCS: 36415; 80048; 83735; 92960; J2250; J3010; J7040

== ENCOUNTER 2021-06-08 14:43 | Outpatient (CLI) | payer MEDICARE, SELFPAY ==
--- NOTE | 2021-06-09 13:00 | WPDPFTINT ---
PFT Procedure Performed PFT Procedure Performed Spirometry with Pre/Post Bronchodilator Plethysmography (Lung Vol) Diffusing Cap (DLCO) Flow Vol Loop PFT Interpretation DOS: 06/08/2021 REQUESTING: Dr Hickey REASON FOR TESTING: COPD PULMONARY FUNCTION TESTS Results are not reliable and reproducible. There were no flow volumes loops that were reproducible. Spirometry: FEV1 is 81% predicted, 1.6 L. This is normal. FVC is 71% which is mildly decreased. FEV1/ FVC ratio is 88% normal. There is no change with bronchodilator. Lung volumes: Total lung capacity is 66% which shows mild restriction. Residual volume is 63% normal. RV/TLC is within the normal range. There is no air trapping. Increased airway resistance mildly 139%. Diffusion: DLCO is 59% which is moderately decreased. This corrects for alveolar volume, DLCO /VA is 109. Flow volume loop: Flow volume loops are not reproducible. IMPRESSION: Mild restrictive pattern, moderate diffusion impairment with normal spirometry. Restriction can mask obstruction. There is no prior study to review. Lack of response to bronchodilator should not preclude use of clinically indicated. Angella Peter MD
--- NOTE | 2021-06-09 13:01 | WPDSIXMINUTE ---
Six Minute Walk Procedure Procedure Performed Pulmonary Stress Test (6 min walk) Six Minute Walk Six Minute Walk: DOS: 06/08/2021 REQUESTING: Dr Hickey REASON FOR TESTING: COPD SIX MINUTE WALK This test was conducted per ATS guidelines. The patient was on ambient air during the study. . The initial saturation is 96% and the pulse is 79. Blood pressure was 121/51. The patient walked for 6 minutes without stopping, completed a total of 900 ft/ 274.3 m. saturation did not drop below 92%. Pulse maximum was 105. During recovery patient returned saturation at 97% pulse was 92. IMPRESSION: This 6 minute walk study is normal, no need for supplemental oxygen.
== END 2021-06-08 14:44 | disposition home or self-care (01) ==
PROVIDERS: PCP Internal Medicine; Visit Provider Internal Medicine Pulmonary Disease
DX: J84.9 Interstitial pulmonary disease, unspecified (principal); R94.2 Abnormal results of pulmonary function studies
CPT/HCPCS: 94060; 94618; 94726; 94729

== ENCOUNTER 2021-07-30 08:31 | Outpatient (CLI) | payer MEDICARE, SELFPAY ==
--- NOTE | 2021-08-10 14:01 | WPDSLEEPSTUD ---
Sleep Study Date of Study: 07/30/21 Ordering Provider: Osito Hickey MD Interpreting Physician: Angella Peter MD Sleep Study Type: Split Polysomnogram Height: 1.6 m Weight: 79.832 kg Body Mass Index: 31.1 Neck Circumference (inches): 16 [place]: 19 Reason for Sleep Study Hypersomnolence Sleep History Merari Elmore is a 76 year old female with obstructive sleep apnea previously used CPAP for years. Her and she lost 25 lb. She used her CPAP until it was recently recalled. She is now more sleepy, falls asleep when she sits down. She wakes up during the night and has excessive daytime sleepiness. She occasionally awakens from sleep feeling short of breath. She rarely awakens at night with heartburn, belching or coughing. She does not know if she snores. She occasionally has trouble sleeping with a cold. She rarely wakes up gasping for breath at night. She rarely has breathing problem by others. She she occasionally sweats excessively at night. She rarely notices her heart pounding or beating irregularly at night. She occasionally falls asleep during the day, the falls involuntarily, rarely falls asleep while driving. She does not have loss of muscle tone with strong emotion. Not feel para awaking falling asleep. She does not have vivid dreamlike scenes upon awakening or falling asleep. She does not feel afraid to go to sleep. She does not have nightmares. She does not remember her dreams. She rarely feels sad or depressed. She rarely has anxiety. She rarely has muscular tension. She rarely notices parts of her body jerking and she rarely kicks at night. She rarely has crawling and aching feelings in her legs or any kind of leg pain at night. She does not have morning jaw pain. She rarely is bothered by pain during the day, rarely awakened by pain at night. She occasionally wakes up feeling stiff in the morning. She rarely wakes up with sore achy muscles are pain in the neck and spine. She has fatigue, memory problems and concentration difficulties. She has heart disease, depression, seasonal allergies hypothyroidism and constipation. She also has atrial fibrillation and pulmonary fibrosis. Normal bedtime is 10:30 p.m. falling asleep within 5 minutes typically waking 3-4 times at night to change positions. She is able to return to sleep within 5 minutes. She takes naps in the afternoon or evening. A short nap lasting 10 or 15 minutes is not refreshing. Most of the time she feels good in the morning. She feels better in the morning compared other times a day. Habits: Never smoked tobacco. Caffeine 2-3 servings a day. No alcohol or recreational drugs. [facility] Past Medical History Medical History (Updated 07/10/21 @ 11:51 by Felicia Anderson CMA) Abnormal CT scan Anxiety with depression Atrial fibrillation BMI 30.0-30.9,adult BMI 31.0-31.9,adult Breast cancer screening Cerumen impaction Cervicalgia DJD (degenerative joint disease) of cervical spine Dry eyes Elevated homocysteine Encounter for routine adult health examination without abnormal findings Encounter to establish care FHx: type 2 diabetes mellitus Follow up Hearing loss Hematuria Hx of colonic polyps Hyperlipidemia Hypothyroidism (acquired) Interstitial lung disease 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
[2021-08-10 15:15] VITALS: BMI 31.1
== END 2021-07-31 06:34 | disposition home or self-care (01) ==
LOC: ANHCSM 08:32
PROVIDERS: PCP Internal Medicine; Visit Provider Internal Medicine Pulmonary Disease
DX: G47.33 Obstructive sleep apnea (adult) (pediatric) (principal)
CPT/HCPCS: 95811

== ENCOUNTER 2022-01-04 09:25 | Outpatient (CLI) | payer MEDICARE, SELFPAY ==
[2022-01-04 11:20] LABS: Basophils Absolute Auto 0.1 K/mm3 (0.0-0.1); Basophils Percent Auto 0.9 % (0.2-1.2); Eosinophils Absolute Auto 0.2 K/mm3 (0-0.3); Eosinophils Percent Auto 1.9 % (0-4.4); Hemoglobin 12.8 g/dL (12.0-15.0); Immature Granulocyte Absolute 0.02 K/mm3 (0.00-0.031); Immature Granulocyte Percent A 0.2 % (0-0.5); Lymphocytes Absolute Auto 1.51 K/mm3 (0.9-3.2); Lymphocytes Percent Auto 18.7 % (18.3-44.2); Mean Corpuscular Hemoglobin 29.9 pg (26-34); Mean Corpuscular Volume 93.5 fl (80-100); Monocytes Absolute Auto 0.8 K/mm3 (0.1-0.6); Monocytes Percent Auto 10.4 % (2.6-8.5); Neutrophils Absolute Auto 5.5 K/mm3 (1.3-6.7); Neutrophils Percent Auto 67.9 % (45.5-73.1); Platelet Count Result 277 k/mm3 (150-375); Red Blood Count 4.28 M/mm3 (4.2-5.4); Red Cell Distribution Width 14.5 % (11.5-14.5); White Blood Count 8.1 K/mm3 (4.5-10.0)
[2022-01-04 11:50] LABS: Alanine Aminotransferase 14 U/L (6-35); Alkaline Phosphatase 86 U/L (38-126); Anion Gap 9 mmol/L (8-16); Aspartate Amino Transferase 26 U/L (14-36); Bilirubin,Total 0.4 mg/dL (0.2-1.3); Blood Urea Nitrogen 26 mg/dL (7-17); Calcium 9.5 mg/dL (8.4-10.2); Carbon Dioxide 25 mmol/L (22-30); Chloride 104 mmol/L (98-107); Cholesterol 129 mg/dL (0-200); Estimated Glomerular Filt Rate 44; Glucose 91 mg/dL (65-110); HDL Direct 43 mg/dL; Potassium 4.5 mmol/L (3.4-5.0); Sodium 138 mmol/L (137-145); Triglycerides 69 mg/dL (<150)
[2022-01-04 12:02] LABS: LDL Cholesterol Direct 54 mg/dL
[2022-01-04 12:07] LABS: Free T4 Free Thyroxine 2.26 ng/mL (0.78-2.19); Vitamin D 25 Hydroxy 48.4 ng/mL
[2022-01-04 12:36] LABS: Thyroid Stimulating Hormone 0.957 uIU/mL (0.465-4.680)
== END 2022-01-04 09:26 | disposition home or self-care (01) ==
PROVIDERS: PCP Internal Medicine; Visit Provider Internal Medicine
DX: E03.9 Hypothyroidism, unspecified (principal); E78.2 Mixed hyperlipidemia; Z79.899 Other long term (current) drug therapy; E55.9 Vitamin D deficiency, unspecified
CPT/HCPCS: 36415; 80053; 80061; 82306; 84439; 84443; 85025

== ENCOUNTER 2022-07-06 11:22 | Outpatient (CLI) | payer MEDICARE, SELFPAY ==
--- NOTE | ~2022-07-06 | XR_ITS ---
Left Hand Technique: PA, oblique, and lateral views were obtained. Clinical History: Pain Findings: No acute fracture or dislocation is seen. There is advanced degenerative change at the seco nd and third DIP joints. There is moderate degenerative change involving all of the PIP joints. There is moderate degenerative change at the first CMC joint. Soft tissues are unremarkable. 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 Reviewed, dictated and finalized at location M. 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
[2022-07-06 12:26] LABS: Basophils Absolute Auto 0.1 K/mm3 (0.0-0.1); Basophils Percent Auto 0.7 % (0.2-1.2); Eosinophils Absolute Auto 0.2 K/mm3 (0-0.3); Eosinophils Percent Auto 2.2 % (0-4.4); Hematocrit 41.5 % (37.0-47.0); Hemoglobin 13.4 g/dL (12.0-15.0); Immature Granulocyte Absolute 0.02 K/mm3 (0.00-0.031); Immature Granulocyte Percent A 0.2 % (0-0.5); Lymphocytes Absolute Auto 1.71 K/mm3 (0.9-3.2); Lymphocytes Percent Auto 20.9 % (18.3-44.2); Mean Corpuscular HGB Conc 32.3 g/dl (32-36); Mean Corpuscular Hemoglobin 31.2 pg (26-34); Mean Corpuscular Volume 96.7 fl (80-100); Mean Platelet Volume 9.9 fl (7.4-10.4); Monocytes Absolute Auto 0.8 K/mm3 (0.1-0.6); Monocytes Percent Auto 9.5 % (2.6-8.5); Neutrophils Absolute Auto 5.4 K/mm3 (1.3-6.7); Neutrophils Percent Auto 66.5 % (45.5-73.1); Platelet Count Result 263 k/mm3 (150-375); Red Blood Count 4.29 M/mm3 (4.2-5.4); Red Cell Distribution Width 14.1 % (11.5-14.5); White Blood Count 8.2 K/mm3 (4.5-10.0)
[2022-07-06 12:43] LABS: Alanine Aminotransferase 20 U/L (6-35); Albumin Level 4.3 g/dL (3.5-5.1); Alkaline Phosphatase 86 U/L (38-126); Anion Gap 4 mmol/L (8-16); Aspartate Amino Transferase 28 U/L (14-36); Bilirubin,Total 0.7 mg/dL (0.2-1.3); Blood Urea Nitrogen 24 mg/dL (7-17); Calcium 9.2 mg/dL (8.4-10.2); Carbon Dioxide 29 mmol/L (22-30); Chloride 103 mmol/L (98-107); Cholesterol 146 mg/dL (0-200); Estimated Glomerular Filt Rate 48; Glucose 92 mg/dL (65-110); HDL Direct 55 mg/dL; Potassium 4.6 mmol/L (3.4-5.0); Sodium 136 mmol/L (137-145); Triglycerides 55 mg/dL (<150)
[2022-07-06 12:53] LABS: LDL Cholesterol Direct 65 mg/dL
[2022-07-06 12:58] LABS: Free T4 Free Thyroxine 1.64 ng/mL (0.78-2.19); Hemoglobin A1C 5.6 % (<5.7)
== END 2022-07-06 11:23 | disposition home or self-care (01) ==
PROVIDERS: PCP Internal Medicine; Visit Provider Internal Medicine
DX: M79.642 Pain in left hand (principal); E03.9 Hypothyroidism, unspecified; I10 Essential (primary) hypertension; R73.01 Impaired fasting glucose; E78.2 Mixed hyperlipidemia
CPT/HCPCS: 36415; 73130; 80053; 80061; 83036; 84439; 84443; 85025

== ENCOUNTER 2023-02-03 08:22 | Outpatient (CLI) | payer MEDICARE, SELFPAY ==
--- NOTE | ~2023-02-03 | CT_ITS ---
CT Scan of the Chest without Contrast: Clinical Indication: Interstitial pulmonary disease Technique: Contiguous sections were acquired throughout the chest without intravenous contrast. Dose reduction technique was used on this scan by utilizing automated exposure control and iterative recon struction technique. The dose-length product (DLP) was 193.00 mGy-cm. COMPARISON: 02/20/2021 Findings: There is no evidence of any significant mediastinal, hilar or axillary lymphadenopathy. The mediastin al soft tissues appear normal. There is no evidence of pleural or pericardial effusion. There is interstitial thickening with basilar and peripheral distribution, most consistent with UIP. No suspicious pulmonary nodule evident. Findings are probably mildly progressed from prior exam. Images through the upper abdomen reveal no abnormalities. 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 Impression: Findings consistent with UIP, probably mildly progressed/worsened from prior exam. Reviewed, dictated and finalized at location . Impression: Findings consistent with UIP, probably mildly progressed/worsened from prior ex am.
[2023-02-03 10:53] LABS: Alanine Aminotransferase 23 U/L (6-35); Albumin Level 4.1 g/dL (3.5-5.1); Alkaline Phosphatase 82 U/L (38-126); Anion Gap 5 mmol/L (8-16); Aspartate Amino Transferase 31 U/L (14-36); Bilirubin,Total 0.7 mg/dL (0.2-1.3); Blood Urea Nitrogen 22 mg/dL (7-17); Calcium 8.9 mg/dL (8.4-10.2); Carbon Dioxide 28 mmol/L (22-30); Chloride 105 mmol/L (98-107); Cholesterol 144 mg/dL (0-200); Estimated Glomerular Filt Rate 44; Glucose 93 mg/dL (65-110); HDL Direct 46 mg/dL; Sodium 138 mmol/L (137-145); Triglycerides 76 mg/dL (<150)
[2023-02-03 11:06] LABS: LDL Cholesterol Direct 79 mg/dL
[2023-02-03 11:09] LABS: Free T4 Free Thyroxine 1.87 ng/mL (0.78-2.19)
[2023-02-03 12:04] LABS: Folic Acid > 20.0 ng/mL (2.76->20)
[2023-02-03 13:08] LABS: Vitamin B12 > 1000.0 pg/mL (239-931)
--- NOTE | 2023-02-03 14:25 | WPDSIXMINUTE ---
Six Minute Walk Procedure Procedure Performed Pulmonary Stress Test (6 min walk) Six Minute Walk Six Minute Walk: This is a 6 minute walk test. The test was performed and interpreted in accordance with the 2014 ERS/ATS task force guidelines. Of note the patient walked with a cane. Findings: The patient's resting room air oxygen saturation measured by pulse oximetry was 97% and heart rate was 72 bpm. Patient ambulated for 305 meters and oxygen saturation remained 94 to 96%. Heart rate at the end of the study was 90 bpm. The patient did not qualify for supplemental oxygen at rest or with ambulation. There are no prior studies for comparison.
--- NOTE | 2023-02-03 14:26 | P.PCNPFT_ITS ---
PFT Procedure Performed PFT Procedure Performed Spirometry with Pre/Post Bronchodilator Plethysmography (Lung Vol) Diffusing Cap (DLCO) Flow Vol Loop PFT Interpretation This is a pulmonary function test with pre and post-bronchodilator spirometry, plethysmography and diffusing capacity. The test was performed and results interpreted in accordance with the 2019 and 2005 ATS/ERS Task Force guidelines respectively using the Global Lung Function Initiative-2012 reference equations. Patient demonstrated good effort and cooperation. Reproducibility criteria were met. The quality of the pre bronchodilator spirometry maneuver was Grade A and post bronchodilator spirometry maneuver was Grade A. Findings: Spirometry: The contour the expiratory flow tracing resembles a witch's hat. The contour the inspiratory flow tracing is normal. The pre bronchodilator FVC is 1.38 L, 54% predicted. The pre bronchodilator FEV1 is 1.31 L, 68% predicted. The pre bronchodilator FEV1: FVC ratio is 95%. The post bronchodilator FVC is 1.37 L, representing no change. The post bronchodilator FEV1 is 1.32 L, represe nting 1% increase. The post bronchodilator FEV1: FVC ratio is 96%. Plethysmography: The total lung capacity is 3.95 L, 81% predicted. The functional residual capacity is 2.09 L, 74% predicted. The residual volume is 2.06 L, 90% predicted. Diffusion capacity: The diffusing capacity unadjusted for hemoglobin and carboxyhemoglobin is 9.6, 50% predicted. The diffusing capacity adjusted for alveolar volume is 4.31, 102% predicted. In comparison to previous pulmonary function testing on 06/08/2021 the post bronchodilator FVC has decreased from 1.70 L to 1.37 L. The post bronchodilator FEV1 is decreased from 1.65 L to 1.32 L. The total lung capacity has increased from 3.25 L to 3.95 L. The functional residual capacity is unchanged from 1.82 L to 2.09 L. The residual volume is increased from 1.42 L to 2.06 L. The diffusing capacity unadjusted for hemoglobin and carboxyhemoglobin is decreased from 11.5 to 9.6. The diffusing capacity adjusted for alveolar volume is unchanged from 4.63 to 4.31. Impression: The spirometry is normal without evidence of an obstructive abnormality. The lung volumes are normal without evidence of and restrictive abnormality. The FVC is moderately decreased and the FEV1 is mildly decreased without an obstructive or restrictive abnormality. This is an abnormal but nonspecific finding. There is no significant improvement after inhaling a single dose of albuterol. The diffusing capacity unadjusted for hemoglobin and carboxyhemoglobin is moderately decreased and normalizes when adjusted for alveolar volume. In comparison to previous pulmonary function testing on 06/08/2021 there has been a greater than anticipated time dependent decrease in the FVC, FEV1 and diffusing capacity unadjusted for hemoglobin and carboxyhemoglobin. There has been a greater than anticipated time dependent increase in the total lung capacity and residual volume with no significant change in the functional residual capacity or diffusing capacity adjusted for alveolar volume. Clinical correlation is recommended.
== END 2023-02-03 08:23 | disposition home or self-care (01) ==
PROVIDERS: PCP Internal Medicine; Visit Provider Internal Medicine Pulmonary Disease
DX: E55.9 Vitamin D deficiency, unspecified (principal); E53.8 Deficiency of other specified B group vitamins; E03.9 Hypothyroidism, unspecified; Z79.899 Other long term (current) drug therapy; E78.2 Mixed hyperlipidemia; J84.9 Interstitial pulmonary disease, unspecified
CPT/HCPCS: 36415; 71250; 80053; 80061; 82306; 82607; 82746; 84439; 84443; 94060; 94618; 94726; 94729

== ENCOUNTER 2023-03-16 11:15 | Outpatient (CLI) | payer MEDICARE, SELFPAY ==
--- NOTE | ~2023-03-16 | XR_ITS ---
EXAMINATION: XR chest 2V DATE: 03/16/2023 11:30 INDICATION: Cough. TECHNIQUE: Frontal and lateral views of the chest were obtained. COMPARISON: Chest 2 views 01/23/2021, chest CT 02/03/2023 FINDINGS: The lung volumes are small. There is a chronic interstitial pattern in the lungs with a low er lung predominance. No pleural effusion or pneumothorax. Cardiomegaly is noted. There is mild chron ic anterior wedging of multiple vertebral bodies. IMPRESSION: 1. Chronic interstitial lung disease, stable from 01/23/2021. 2. Cardiomegaly. Reviewed, dictated and finalized at location E.
== END 2023-03-16 11:16 | disposition home or self-care (01) ==
PROVIDERS: PCP Internal Medicine; Visit Provider Internal Medicine
DX: R05.9 Cough, unspecified (principal); R06.09 Other forms of dyspnea; R09.89 Other specified symptoms and signs involving the circulatory and respiratory systems; I51.7 Cardiomegaly; J98.4 Other disorders of lung
CPT/HCPCS: 71046

== ENCOUNTER 2023-05-25 08:21 | Outpatient (CLI) | payer MEDICARE, SELFPAY ==
--- NOTE | 2023-05-25 12:18 | WPDSIXMINUTE ---
Six Minute Walk Procedure Procedure Performed Pulmonary Stress Test (6 min walk) Six Minute Walk Six Minute Walk: This is a 6 minute walk test. The test was performed and interpreted in accordance with the 2014 ERS/ATS task force guidelines. Findings: The patient's resting room air oxygen saturation measured by pulse oximetry was 96% and heart rate was 72 bpm. Patient ambulated for 244 meters and oxygen saturation remained 95 to 98%. Heart rate at the end of the study was 70 bpm. The patient did not qualify for supplemental oxygen at rest or with ambulation. There are no prior studies for comparison.
--- NOTE | 2023-05-25 12:21 | WPDPFTINT ---
PFT Procedure Performed PFT Procedure Performed Spirometry with Pre/Post Bronchodilator Plethysmography (Lung Vol) Diffusing Cap (DLCO) Flow Vol Loop PFT Interpretation This is a pulmonary function test with pre and post-bronchodilator spirometry, plethysmography and diffusing capacity. The test was performed and results interpreted in accordance with the 2019 and 2005 ATS/ERS Task Force guidelines respectively using the Global Lung Function Initiative-2012 reference equations. Patient demonstrated good effort and cooperation. Reproducibility criteria were met. The quality of the pre bronchodilator spirometry maneuver was Grade A and post bronchodilator spirometry maneuver was Grade A. Findings: Spirometry: The contour the inspiratory and expiratory flow tracing are normal. The pre bronchodilator FVC is 1.61 L, 64% predicted. The pre bronchodilator FEV1 is 1.36 L, 71% predicted. The pre bronchodilator FEV1: FVC ratio was 85%. The post bronchodilator FVC is 1.47 L, representing a 9% decrease. The post bronchodilator FEV1 is 1.40 L, representing a 3% increase. The post bronchodilator FEV1: FVC ratio is 95%. Plethysmography: The total lung capacity is 2.44 L, 50% predicted. The functional residual capacity is 1.32 L, 47% predicted. The residual volume is 0.83 L, 36% predicted. Diffusing capacity: The diffusing capacity unadjusted for hemoglobin and carboxyhemoglobin is 8.6, 45% predicted. The diffusing capacity adjusted for alveolar volume is 3.96, 94% predicted. In comparison to previous pulmonary function testing on 02/03/2023 the post bronchodilator FVC is unchanged from 1.37 L to 1.47 L. The post bronchodilator FEV1 is unchanged from 1.32 L to 1.40 L. The total lung capacity is decreased from 3.95 L to 2.44 L. The functional residual capacity is decreased from 2.09 L to 1.32 L. The residual volume is decreased from 2.06 L to 0.83 L. The diffusing capacity unadjusted for hemoglobin and carboxyhemoglobin is unchanged from 9.6 to 8.6. The diffusing capacity adjusted for alveolar volume is unchanged from 4.31 to 3.96 Impression: There is a mild restrictive ventilatory abnormality. The spirometry is normal without evidence of an obstructive abnormality. There is no significant improvement after inhaling a single dose of albuterol. The diffusing capacity unadjusted for hemoglobin and carboxyhemoglobin is moderately decreased and normalizes when adjusted for alveolar volume. In comparison to previous pulmonary function testing on 02/03/2023 there has been a greater than anticipated time dependent decrease in the total lung capacity, functional residual capacity and residual volume with no significant change in the FVC, FEV1 or diffusing capacity. Clinical correlation is recommended.
== END 2023-05-25 08:22 | disposition home or self-care (01) ==
LOC: ANHPFT 08:22
PROVIDERS: PCP Internal Medicine; Visit Provider Internal Medicine Pulmonary Disease
DX: J84.10 Pulmonary fibrosis, unspecified (principal); Z87.891 Personal history of nicotine dependence
CPT/HCPCS: 94060; 94618; 94726; 94729

== ENCOUNTER 2023-07-11 11:33 | Outpatient (CLI) | payer MEDICARE, SELFPAY ==
[2023-07-11 12:14] LABS: Alanine Aminotransferase 15 U/L (6-35); Albumin Level 4.1 g/dL (3.5-5.1); Alkaline Phosphatase 85 U/L (38-126); Anion Gap 4 mmol/L (8-16); Aspartate Amino Transferase 26 U/L (14-36); Bilirubin,Total 0.6 mg/dL (0.2-1.3); Blood Urea Nitrogen 20 mg/dL (7-17); Calcium 9.5 mg/dL (8.4-10.2); Carbon Dioxide 29 mmol/L (22-30); Chloride 108 mmol/L (98-107); Cholesterol 137 mg/dL (0-200); Estimated Glomerular Filt Rate 48; Glucose 92 mg/dL (65-110); HDL Direct 48 mg/dL; Potassium 4.4 mmol/L (3.4-5.0); Sodium 141 mmol/L (137-145); Triglycerides 56 mg/dL (<150)
[2023-07-11 12:25] LABS: LDL Cholesterol Direct 74 mg/dL
[2023-07-11 12:41] LABS: Hemoglobin A1C 5.5 % (<5.7)
== END 2023-07-11 11:34 | disposition home or self-care (01) ==
PROVIDERS: PCP Internal Medicine; Visit Provider Internal Medicine
DX: E78.5 Hyperlipidemia, unspecified (principal); I10 Essential (primary) hypertension; R73.03 Prediabetes
CPT/HCPCS: 36415; 80053; 80061; 83036

== ENCOUNTER 2023-10-27 08:08 | Outpatient (CLI) | payer MEDICARE, SELFPAY ==
--- NOTE | ~2023-10-27 | CT_ITS ---
EXAMINATION: CT chest high resolution wo co DATE: 10/27/2023 08:34 INDICATION: J84.10 - Pulmonary fibrosis, unspecified TECHNIQUE: Computed tomography (CT) of the chest was performed without intravenous contrast. Addition al 3D reconstructions utilizing coronal maximum intensity projection (MIP) were performed. Automated exposure control and iterative reconstruction technique were employed. The dose-length product was 17 9.66 mGy-cm. COMPARISON: 02/03/2023 and 02/20/2021 FINDINGS: Lung volumes remain chronically small. No significant recent progression in the bilateral peripheral and lower lung predominant irregular septal line thickening with associated groundglass opacity but w ithout honeycombing or bronchiectasis consistent with nonspecific interstitial pneumonia (NSIP) patte lead burner interstitial lung disease which has worsened from 2020. There are tiny bilateral dependent ly layering pleural effusions. Heart size is normal. Atherosclerotic coronary artery and aortic valve calcifications. No pericardial effusion. Thoracic aorta is normal in caliber. There is enlargement o f the central pulmonary arteries consistent with pulmonary arterial hypertension. No pathologically e nlarged thoracic lymphadenopathy. Visualized upper abdomen is unremarkable. Mild thoracic kyphosis wi th chronic mild anterior wedging of multiple lower thoracic vertebral bodies. Moderate thoracic spond ylosis with bridging osteophytes at multiple levels consistent with diffuse idiopathic skeletal hyper ostosis (DISH). IMPRESSION: 1. No significant interval change since the most recent study in chronic interstitial lung disease in a pattern of nonspecific interstitial pneumonia (NSIP). 2. Enlargement of the central pulmonary arteries consistent with likely secondary pulmonary arterial hypertension. 3. Tiny bilateral pleural effusions. Reviewed, dictated and finalized at location A. IMPRESSION: 1. No significant interval change since the most recent study in chronic inters titial lung disease in a pattern of nonspecific interstitial pneumonia (NSIP). 2. Enlargement of the central pulmonary arteries consistent with likely seconda ry pulmonary arterial hypertension. 3. Tiny bilateral pleural effusions.
--- NOTE | 2023-10-27 15:16 | WPDSIXMINUTE ---
Six Minute Walk Procedure Procedure Performed Pulmonary Stress Test (6 min walk) Six Minute Walk Six Minute Walk: This is a 6 minute walk test. The test was performed and interpreted in accordance with the 2014 ERS/ATS task force guidelines. Of note, patient used to wheeled walker for stability Findings: The patient's resting room air oxygen saturation measured by pulse oximetry was 95% and heart rate was 67 bpm. Patient ambulated for 244 meters and oxygen saturation remained 92 to 96%. Heart rate at the end of the study was 89 bpm. The patient did not qualify for supplemental oxygen at rest or with ambulation. in comparison to walk study on 05/25/2023 there is no change in her walk distance at 244 m and her todd roomair saturation decreased from 95% on the prior study to 92% on the current study.
--- NOTE | 2023-10-27 15:19 | WPDPFTINT ---
PFT Procedure Performed PFT Procedure Performed Spirometry with Pre/Post Bronchodilator Plethysmography (Lung Vol) Diffusing Cap (DLCO) Flow Vol Loop PFT Interpretation This is a pulmonary function test with pre and post-bronchodilator spirometry, plethysmography and diffusing capacity. The test was performed and results interpreted in accordance with the 2019 and 2005 ATS/ERS Task Force guidelines respectively using the Global Lung Function Initiative-2012 reference equations. Patient demonstrated good effort and cooperation. Reproducibility criteria were met. The quality of the pre bronchodilator spirometry maneuver was Grade A and post bronchodilator spirometry maneuver was Grade A. Findings: Spirometry: The contour the expiratory flow tracing demonstrates a witch's is hat pattern. The contour the inspiratory flow tracing is normal. The pre bronchodilator FVC is 1.55 L, 62% predicted. The pre bronchodilator FEV1 is 1.48 L, 77% predicted. The pre bronchodilator FEV1: FVC ratio is 95%. The post bronchodilator FVC is 1.51 L, representing a 3% decrease. The post bronchodilator FEV1 is 1.47 L, representing no change. The post bronchodilator FEV1: FVC ratio is 98%. Plethysmography: The total lung capacity is 2.40 L, 49% predicted. The functional residual capacity is 1.08 L, 38% predicted. The residual volume is 0.77 L, 34% predicted. Diffusing capacity: The diffusing capacity unadjusted for hemoglobin and carboxyhemoglobin is 8.90, 46% predicted. The diffusing capacity adjusted for alveolar volume is 3.98, 95% predicted. In comparison to previous pulmonary function testing on 05/25/2023 the post bronchodilator FVC is unchanged from 1.47 L to 1.51 L. The post bronchodilator FEV1 is unchanged from 1.40 L to 1.47 L. The total lung capacity is decreased from 2.44 L to 2.40 L. The functional residual capacity is decreased from 1.32 L to 1.08 L. The residual volume is unchanged from 0.83 L to 0.77 L. The diffusing capacity unadjusted for hemoglobin and carboxyhemoglobin is unchanged from 8.6 to 8.9. The diffusing capacity adjusted for alveolar volume is unchanged from 3.96 to 3.98. Impression: There is a mild restrictive ventilatory abnormality with a normal EFV1. The spirometry is normal without evidence of an obstructive abnormality. There is no significant improvement after inhaling a single dose of albuterol. The diffusing capacity unadjusted for hemoglobin and carboxyhemoglobin is moderately decreased and normalizes when adjusted for alveolar volume. In comparison to previous pulmonary function testing on 05/25/2023 there has been a greater than anticipated time dependent decrease in the total lung capacity, and functional residual capacity with no significant change in the FVC, FEV1, residual volume or diffusing capacity. Clinical correlation is recommended.
== END 2023-10-27 08:09 | disposition home or self-care (01) ==
LOC: ANHIMG 08:11
PROVIDERS: PCP Internal Medicine; Visit Provider Internal Medicine Pulmonary Disease
DX: J84.10 Pulmonary fibrosis, unspecified (principal); J61 Pneumoconiosis due to asbestos and other mineral fibers; J90 Pleural effusion, not elsewhere classified; Z87.891 Personal history of nicotine dependence
CPT/HCPCS: 71250; 94060; 94618; 94726; 94729

== ENCOUNTER 2024-08-09 12:25 | Outpatient (CLI) | payer MEDICARE, SELFPAY ==
--- NOTE | 2024-08-10 09:38 | WPDPFTINT ---
PFT Procedure Performed PFT Procedure Performed Spirometry with Pre/Post Bronchodilator Plethysmography (Lung Vol) Diffusing Cap (DLCO) Flow Vol Loop PFT Interpretation Lung volumes were assessed using body plethysmography, revealing a reduction across all parameters, suggestive of restrictive respiratory disease. Spirometry demonstrated normal expiratory flow rates and an elevated FEV1/FVC ratio of 98%, which also supports the presence of restrictive respiratory disease. After bronchodilator administration, there was no significant improvement in expiratory flow rates. Lung diffusion capacity is severely reduced at 40% of the predicted value. This reduced diffusion capacity, along with a low alveolar volume and a normal DLCO/VA ratio, indicates a loss of alveolar capillary structure and lung volume, as observed in interstitial lung disease or emphysema. The flow volume loop is consistent with restrictive respiratory disease. Compared to the previous study in 2023, the post-bronchodilator FVC and FEV1 remain essentially unchanged, as does the lung diffusion capacity. However, the total lung capacity has increased by approximately 0.55 L. Impression: Moderate restrictive respiratory disease with severely reduced lung diffusion capacity. Essentially unchanged since 10/2023.
--- NOTE | 2024-08-10 09:46 | WPDSIXMINUTE ---
Six Minute Walk Procedure Procedure Performed Pulmonary Stress Test (6 min walk) Six Minute Walk Six Minute Walk: This 6 minute walk test was carried out with the patient breathing ambient air. The pre-walk baseline oxyhemoglobin saturation was 99%. The patient walked 244 m with no stops during testing. During the walk the oxyhemoglobin saturation remained in the range of 95% to 98%. Impression: No evidence of oxyhemoglobin desaturation on this testing.
== END 2024-08-09 12:26 | disposition home or self-care (01) ==
PROVIDERS: PCP Internal Medicine; Visit Provider Internal Medicine Pulmonary Disease
DX: J84.9 Interstitial pulmonary disease, unspecified (principal); Z87.891 Personal history of nicotine dependence; R94.2 Abnormal results of pulmonary function studies
CPT/HCPCS: 94060; 94618; 94726; 94729

== ENCOUNTER 2024-10-22 11:13 | Outpatient (CLI) | payer MEDICARE, SELFPAY ==
--- NOTE | ~2024-10-22 | XR_ITS ---
Clinical Indication: Chest pain PA and lateral views of the chest: Comparison: 03/16/2023 Findings: Probable chronic interstitial disease, unchanged. No acute pulmonary abnormality. Cardiome diastinal silhouette is within normal limits. Bones and soft tissues are unremarkable. Impression: Probable chronic interstitial disease, unchanged. Reviewed, dictated and finalized at location . Impression: Probable chronic interstitial disease, unchanged.
--- NOTE | ~2024-10-22 | XR_ITS ---
Left Shoulder Technique: AP and axillary views were obtained. Clinical History: Status post fall Findings: No fracture or dislocation is seen. Osseous alignment is anatomic. The glenohumeral and acr omioclavicular joint spaces are preserved. Soft tissues are unremarkable. Impression: Unremarkable left shoulder radiographs. Reviewed, dictated and finalized at [facility]. Impression: Unremarkable left shoulder radiographs.
--- OUTSIDE RECORDS SUMMARY | 2024-10-22 12:56 | XMS_ITS | Encounter Summary ---
Author Organization [facility] Address [address] [place] [address] Care Team Providers Care Beef Cattle Farmer Name Role Phone Ashwini Ramos MD Primary Care Provider [phone] Encounter Details Date Type Department Care Team (Late st Contact Info) Description 07/31/1999 Outpatient Historical [facility] Internal Medicine Medical [place] A [facility] [address] [facility] [address] [address] Wellington Melara MD [address] [place] [address] Social History Tobacco Use Types Packs/Day Years Used Date Smoking Tobacco: Never Assessed Comments Unknown Sex and Gender Information Value Date Recorded Sex Assigned at Not on file Legal Sex Female 4:52 AM TOILET ATTENDANT Gender Identity Not on file Sexual Orientation Not on file documented as of this encounter Plan of Treatment Not on file documented as of this encounter Visit Diagnoses Not on filedocumented in this encounter Care Teams Beef Cattle Farmer Relationship Specialty Start Date End Date Ashwini Ramos MD [address] [facility] [address] [place] [address] PCP - General Internal Medicine 12/04/15 DME 12/29/16 documented as of this encounter
--- OUTSIDE RECORDS SUMMARY | 2024-10-22 12:56 | XMS_ITS | Encounter Summary ---
Author Organization [facility] Address [address] [place] [address] Care Team Providers Care Site Monitor Name Role Phone Ashwini Ramos MD Primary Care Provider [phone] Encounter Details Date Type Department Care Team (Late st Contact Info) Description 04/21/2004 Outpatient Historical [facility] Internal Medicine Medical [place] A [facility] [address] [facility] [address] [address] Wellington Melara MD [address] [place] [address] Social History Tobacco Use Types Packs/Day Years Used Date Smoking Tobacco: Never Assessed Comments Unknown Sex and Gender Information Value Date Recorded Sex Assigned at Not on file 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 [facility] [address] [place] [address] PCP - General Internal Medicine 12/04/15 DME 12/29/16 documented as of this encounter
--- OUTSIDE RECORDS SUMMARY | 2024-10-22 12:56 | XMS_ITS | Encounter Summary ---
Author Organization [facility] Address [address] [place] [address] Care Team Providers Care Color Grinder Name Role Phone Ashwini Ramos MD Primary Care Provider [phone] Encounter Details Date Type Department Care Team (Late st Contact Info) Description 01/10/2003 Outpatient Historical [facility] Internal Medicine Medical [place] A [facility] [address] [facility] [address] [address] Wellington Melara MD [address] [place] [address] Social History Tobacco Use Types Packs/Day Years Used Date Smoking Tobacco: Never Assessed Comments Unknown Sex and Gender Information Value Date Recorded Sex Assigned at Not on file Legal Sex Female 4:52 AM GENERAL MEDICAL PRACTITIONER Gender Identity Not on file Sexual Orientation Not on file documented as of this encounter Plan of Treatment Not on file documented as of this encounter Visit Diagnoses Not on filedocumented in this encounter Care Teams Color Grinder Relationship Specialty Start Date End Date Ashwini Ramos MD [address] [facility] [address] [place] [address] PCP - General Internal Medicine 12/04/15 DME 12/29/16 documented as of this encounter
--- OUTSIDE RECORDS SUMMARY | 2024-10-22 12:56 | XMS_ITS | Clinical Summary ---
Author Organization [facility] Virtual Care Address [address] [place] [address] Phone Care Team Providers Care Lombardi Developer Name Role Phone [place] Reveles MD Primary Care Provider [phone] [place] Reveles MD Unavailable [phone] Allergies Active Allergy Reactions Criticality Noted Date Comments Amoxicillin Unknown 02/12/2021 Nickel Other (See comments) Low 11/06/2014 Cheap jewelry; causes black to skin & soreness to earlobes Contact dermititis Medications Eliquis 5 mg tablet Take 1 tablet (5 mg total) by mouth 2 (two) times a day 1 Active ezetimibe (ZETIA) 10 mg tablet ezetimibe 10 mg tablet TAKE 1 TABLET BY MOUTH ONCE DAILY Active alendronate (FOSAMAX) 70 mg tablet TAKE 1 TABLET BY MOUTH ONCE A WEEK 1 Active cyanocobalamin (Vitamin B-12) 1,000 mcg tabletIndication s:Prevention of Vitamin B12 Deficiency Take 1 tablet (1,000 mcg total) by mouth daily Active cholecalciferol, vitamin D3, (VITAMIN D3 ORAL) Active folic acid (FOLVITE) 800 mcg tablet Take 1 tablet (800 mcg total) by mouth daily 0.8 MG DAILY Active venlafaxine XR (EFFEXOR-XR) 75 mg 24 hr capsule Take 1 capsule (75 mg total) by mouth daily 2 Active coenzyme Q10 100 mg capsule Take 1 capsule (100 mg total) by mouth daily Active acetaminophen (TYLENOL) 325 mg tablet Take 2 tablets (650 mg total) by mouth every 6 (six) hours 2 Active sennosides 17.2 mg tablet Take 17.2 mg by mouth daily 2 Active FIBER CHOICE, INULIN, ORAL Take 2 tablets by mouth daily Active bisacodyL (DULCOLAX) 10 mg suppository Insert 1 suppository (10 mg total) into the rectum daily as needed Active fluticasone propionate (FLONASE) 50 mcg/actuation nasal spray Administer 2 sprays into affected nostril(s) daily 9 Active moxifloxacin (VIGAMOX) 0.5 % ophthalmic solution Vigamox 0.5 % eye drops Active Euthyrox 88 mcg tablet Take 1 tablet (88 mcg total) by mouth daily 2 Active polyethylene glycol (MIRALAX) 17 gram/dose powder Take 17 g by mouth daily 2 Active pravastatin (PRAVACHOL) 20 mg tablet Take 1 tablet (20 mg total) by mouth nightly 2 Active metoprolol tartrate (LOPRESSOR) 25 mg immediate release tablet Take 1 tablet by mouth twice daily 180 tablet 3 4 Active Active Problems Problem Noted Date Diagnosed Date Nonrheumatic aortic valve insufficiency 10/26/19 23 Nonrheumatic mitral valve regurgitation 10/26/19 23 Other chest pain 07/06/2021 Permanent atrial fibrillation 02/12/2021 Mixed hyperlipidemia 02/12/2021 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 use of patrol captain anticoagulation 021 Other specified hypothyroidism 02/12/2021 Interstitial lung disease Surgical History Surgery Date Site/Laterality Comments CATARACT EXTRACTION W/ INTRAOCULAR LENS IMPLANT Right TOTAL HIP ARTHROPLASTY Bilateral TOTAL KNEE ARTHROPLASTY Right ORIF ANKLE FRACTURE BIMALLEOLAR Left Medical History Medical History Date Comments Anxiety and depression Dry eyes Colonic polyp Hyperlipidemia Thyroid disease Pre-diabetes Family History Medical History Relation Name Comments Stroke Father Atrial fibrillation Mother Relation Name Status Comments Father Mother Social History Tobacco Use Types Packs/Day Years Used Date Smoking Tobacco: Never Smokeless Tobacco: Former Tobacco Cessation:Counseling Given: Not Answered Comments Unknown Sex and Gender Information Value Date Recorded Sex Assigned at Not on file Legal Sex Female 7:10 PM PARKS AND RECREATION MANAGER Gender Identity Not on file Sexual Orientation Not on file Obstetrics History Last Filed Vital Signs Vital Sign Reading Time Taken Comments Blood Pressure 120/70 04/30/2024 10:01 AM PARKS AND RECREATION MANAGER Pulse 86 04/30/2024 10:01 AM PARKS AND RECREATION MANAGER Temperature 36.8 C (98.2 F) 01/29/2022 10:05 AM CDT Respiratory Rate 18 01/29/2022 10:05 AM CDT Oxygen Saturation 99% 04/30/2024 10:01 AM PARKS AND RECREATION MANAGER Inhaled Oxygen Concentration - - Weight 72.8 kg (160 lb 8 oz) 04/30/2024 10:01 AM PARKS AND RECREATION MANAGER Height 152.4 cm (5') 04/30/2024 10:01 AM PARKS AND RECREATION MANAGER Body Mass Index 31.35 04/30/2024 10:01 AM PARKS AND RECREATION MANAGER Plan of Treatment Health Maintenance Due Date Last Done Comments Depression Screening 1945 Hepatitis C Screening 1945 Hepatitis B Screening 1963 Well Visit 65+ 2010 Zoster Vaccine (2 of 3) 01/26/2011 12/01/2010 Fall Risk Assessment 02/12/2022 02/12/2021 Osteoporosis Screening-Bone Density Scan 05/19/2022 05/19/2020, 05/19/2020, 09/13/2016, Additional history exists Covid-19 Vaccine (3 - 2023-2 5 season) 2024 08/08/2020, 07/11/2020 Influenza Vaccine (Season Ended) 2025 02/14/2019, 01/29/2014, 02/12/2013, Additional history exists DTaP/Tdap/Td Vaccine (2 - Td or Tdap) 09/24/2031 09/23/2021, 04/21/2004 Pneumococcal vaccine 65+ Completed 10/16/2015, 03/17 Insurance MEDICARE [facility] MEDICARE [employer] MEDICARE SUPPLEMENT Care Teams Lombardi Developer Relationship Specialty Start Date End Date [place] Reveles MD [address] [place] [address] PCP - General Internal Medicine 06/04/21 [place] Reveles MD [address] [place] [address] Internal Medicine 06/04/21
--- OUTSIDE RECORDS SUMMARY | 2024-10-22 12:56 | XMS_ITS | Encounter Summary ---
Author Organization [facility] Address [address] [place] [address] Care Team Providers Care Binding Bench Worker Name Role Phone Ashwini Ramos MD Primary Care Provider [phone] Encounter Details Date Type Department Care Team (Late st Contact Info) Description 04/21/2004 Outpatient Historical [facility] Internal Medicine Medical [place] A [facility] [address] [facility] [address] [address] [address] Wellington Melara MD [address] [place] [address] Social History Tobacco Use Types Packs/Day Years Used Date Smoking Tobacco: Never Assessed Comments Unknown Sex and Gender Information Value Date Recorded Sex Assigned at Not on file Legal Sex Female 4:52 AM EVAPORATOR Gender Identity Not on file Sexual Orientation Not on file documented as of this encounter Plan of Treatment Not on file documented as of this encounter Visit Diagnoses Not on filedocumented in this encounter Care Teams Binding Bench Worker Relationship Specialty Start Date End Date Ashwini Ramos MD [address] [facility] [address] [place] [address] PCP - General Internal Medicine 12/04/15 DME 12/29/16 documented as of this encounter
--- OUTSIDE RECORDS SUMMARY | 2024-10-22 12:56 | XMS_ITS | Referral Summary ---
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 021 Other specified hypothyroidism 02/12/2021 Interstitial lung disease Social History Tobacco Use Types Packs/Day Years Used Date Smoking Tobacco: Never Smokeless Tobacco: Former Tobacco Cessation:Counseling Given: Not Answered Comments Unknown Sex and Gender Information Value Date Recorded Sex Assigned at Not on file Legal Sex Female 7:10 PM DIRECTOR PATIENT FINANCIAL SERVICES Gender Identity Not on file Sexual Orientation Not on file Last Filed Vital Signs Vital Sign Reading Time Taken Comments Blood Pressure 120/70 04/30/2024 10:01 AM DIRECTOR PATIENT FINANCIAL SERVICES Pulse 86 04/30/2024 10:01 AM DIRECTOR PATIENT FINANCIAL SERVICES Temperature 36.8 C (98.2 F) 01/29/2022 10:05 AM CDT Respiratory Rate 18 01/29/2022 10:05 AM CDT Oxygen Saturation 99% 04/30/2024 10:01 AM DIRECTOR PATIENT FINANCIAL SERVICES Inhaled Oxygen Concentration - - Weight 72.8 kg (160 lb 8 oz) 04/30/2024 10:01 AM DIRECTOR PATIENT FINANCIAL SERVICES Height 152.4 cm (5') 04/30/2024 10:01 AM DIRECTOR PATIENT FINANCIAL SERVICES Body Mass Index 31.35 04/30/2024 10:01 AM DIRECTOR PATIENT FINANCIAL SERVICES Plan of Treatment Not on file Insurance MEDICARE MEDICARE [facility] MEDICARE [employer] MEDICARE SUPPLEMENT Care Teams Risk Consulting Treasury Director Relationship Specialty Start Date End Date [place] Reveles MD [address] [place] [address] PCP - General Internal Medicine 06/04/21 [place] Reveles MD [address] [place] [address] Internal Medicine 06/04/21
--- OUTSIDE RECORDS SUMMARY | 2024-10-22 12:56 | XMS_ITS | Encounter Summary ---
Author Organization [facility] Address [address] [place] [address] Care Team Providers Care Spring Up Supervisor Name Role Phone Ashwini Ramos MD Primary Care Provider [phone] Encounter Details Date Type Department Care Team (Late st Contact Info) Description 12/21/2005 Outpatient Historical [facility] Internal Medicine Medical [place] A [facility] [address] [facility] [address] [address] Gloria Espino MD [facility] [facility] [address] [place] [address] Social History Tobacco Use Types Packs/Day Years Used Date Smoking Tobacco: Never Assessed Comments Unknown Sex and Gender Information Value Date Recorded Sex Assigned at Not on file Legal Sex Female 4:52 AM PHOTOGRAPHERS' MODEL Gender Identity Not on file Sexual Orientation Not on file documented as of this encounter Last Filed Vital Signs Vital Sign Reading Time Taken Comments Blood Pressure 120/80 12/21/2005 2:45 PM CDT Pulse 80 12/21/2005 2:45 PM CDT Temperature - - Respiratory Rate - - Oxygen Saturation - - Inhaled Oxygen Concentration - - Weight 90.7 kg (200 lb) 12/21/2005 2:45 PM CDT Height 167.6 cm (5' 6) 12/21/2005 2:45 PM CDT Body Mass Index 32.28 12/21/2005 2:45 PM CDT documented in this encounter Plan of Treatment Not on file documented as of this encounter Visit Diagnoses Not on filedocumented in this encounter Care Teams Spring Up Supervisor Relationship Specialty Start Date End Date Ashwini Ramos MD [address] [place] [address] PCP - General Internal Medicine 12/04/15 DME 12/29/16 documented as of this encounter
--- OUTSIDE RECORDS SUMMARY | 2024-10-22 12:56 | XMS_ITS | Encounter Summary ---
Author Organization [facility] Address [address] [place] [address] Care Team Providers Care Surgical Services Tech Name Role Phone Ashwini Ramos MD Primary Care Provider [phone] Encounter Details Date Type Department Care Team (Latest Contact Info) Description 10/16/2008 Outpatient Historical [facility] Elizabeth Avila MD [address] [place] [address] Other Screening Mammogram Social History Tobacco Use Types Packs/Day Years Used Date Smoking Tobacco: Never Alcohol Use Standard Drinks/Week Comments Yes 0 (1 standard drink = 0.6 oz pur e alcohol) rarely Comments No Sex and Gender Information Value Date Recorded Sex Assigned at Not on file 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 Not on file Not on file Not on file documented as of this encounter Plan of Treatment Not on file documented as of this encounter Procedures Procedure Name Priority Date/Time Associated Diagnosis Comments MAMMO SCREEN BILAT W OR WO CAD Routine 10/16/2008 10:47 AM CDT documented in this encounter Results * MAMMO DIGITAL SCREEN BILAT (10/16/2008 10:47 AM CDT) Anatomical Region Laterality Modality Breast Bilateral Other 10/16/2008 10:4 7 AM CDT Narrative 10/17/2008 7:48 AM CDT [address], [place] [address] Admit Date: 10/16/2008 ARACELYPABLITOARCHIE MERARI Gloria Sex: F Admit Prov: ELIZABETH BRAGA Date: 1945 Primary Care Prov: ELIZABETH BRAGA CMRN: [id number] [facility] [address] [place] [address] IMAGING SERVICES Ordering Prov: ELIZABETH BRAGA Accession Number: [id number] Interpretation BILATERAL FULL FIELD DIGITAL SCREENING MAMMOGRAM WITH CAD. Date: 10/16/2008 History: Routine Screening. Technique: Full field digital craniocaudal and mediolateral oblique projections of both breasts were obtained. Computer aided detection was performed. Comparison: 04/2007 Breast Parenchymal Composition: Almost entirely fat Findings: No suspicious mass, suspicious microcalcifications, or architectural distortion in either breast is identified. Since the prior study, there has been no significant interval change. The computer aided detection system detects no significant abnormality. Overall Assessment: BI-RADS category 1: Negative. Recommendation: Annual mammography is recommended. Assessment BIRADS: 1-Negative Recommendation: Normal interval follow-up Dictated by: KEZIA ANGUIANO Electronically signed by: KEZIA ANGUIANO 10/17/2008 07:48 Transcribed: 10/16/2008 14:12 AMK Procedure Note Kezia Anguiano - 10/17/[address] [place] [address] Admit Date: 10/16/2008 MERARI RUIZ Gloria Sex: F Admit Prov: ELIZABETH BRAGA Date: 1945 Primary Care Prov: ELIZABETH BRAGA CMRN: [id number] [facility] [id number] IMAGING SERVICES Ordering Prov: ELIZABETH BRAGA Interpretation BILATERAL FULL FIELD DIGITAL SCREENING MAMMOGRAM WITH CAD. Date: 10/16/2008 History: Routine Screening. Technique: Full field digital craniocaudal and mediolateral oblique projections of both breasts were obtained. Computer aided detectionwas performed. Comparison: 04/2007 Breast Parenchymal Composition: Almost entirely fat Findings: No suspicious mass, suspicious microcalcifications, or architectural distortion in either breast is identified. Since theprior study, there has been no significant interval change. The computeraided detection system detects no significant abnormality. Overall Assessment: BI-RADS category 1: Negative. Recommendation: Annual mammography is recommended. Assessment BIRADS: 1-Negative Recommendation: Normal interval follow-up Dictated by: KEZIA ANGUIANO Electronically signed by: KEZIA ANGUIANO 10/17/2008 07:48 Transcribed: 10/16/2008 14:12 AMK us Elizabeth Braga MD MAMMO ORDERABLES Final Result documented in this encounter Visit Diagnoses Diagnosis Other screening mammogram documented in this encounter Care Teams Surgical Services Tech Relationship Specialty Start Date End Date Ashwini Ramos MD [address] [place] [address] PCP - General Internal Medicine 12/04/15 DME 12/29/16 documented as of this encounter
--- OUTSIDE RECORDS SUMMARY | 2024-10-22 12:56 | XMS_ITS | Encounter Summary ---
Author Organization [facility] Address [address] [place] [address] Care Team Providers Care Tree Faller Name Role Phone Ashwini Ramos MD Primary Care Provider [phone] Encounter Details Date Type Department Care Team (Late st Contact Info) Description 03/13/2007 Orders Only [facility] Internal Medicine Medical [place] A [facility] [address] [facility] [address] [address] Kyle Salinas MD [address] [id number] Social History Tobacco Use Types Packs/Day Years Used Date Smoking Tobacco: Never Assessed Comments Unknown Sex and Gender Information Value Date Recorded Sex Assigned at Not on file 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 [facility] [address] [place] [address] PCP - General Internal Medicine 12/04/15 DME 12/29/16 documented as of this encounter
--- OUTSIDE RECORDS SUMMARY | 2024-10-22 12:56 | XMS_ITS | Encounter Summary ---
Author Organization [facility] Address [address] [place] [address] Care Team Providers Care Size Mixer Name Role Phone Ashwini Ramos MD Primary Care Provider [phone] Encounter Details Date Type Department Care Team (Late st Contact Info) Description 04/21/2004 Outpatient Historical [facility] Internal Medicine Medical [place] [facility] [address] [facility] [address] [address] Wellington Melara MD [address] [place] [address] Social History Tobacco Use Types Packs/Day Years Used Date Smoking Tobacco: Never Assessed Comments Unknown Sex and Gender Information Value Date Recorded Sex Assigned at Not on file Legal Sex Female 4:52 AM QUALITY 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 [facility] [address] [place] [address] PCP - General Internal Medicine 12/04/15 DME 12/29/16 documented as of this encounter
--- OUTSIDE RECORDS SUMMARY | 2024-10-22 12:56 | XMS_ITS | Encounter Summary ---
Author Organization [employer] Address [address] [place] [address] Care Team Providers Care Ladle Handler Name Role Phone Ashwini Ramos MD Primary Care Provider [phone] Encounter Details Date Type Department Care Team (Late st Contact Info) Description 06/27/2003 Outpatient Historical [facility] Support Serv. 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
--- OUTSIDE RECORDS SUMMARY | 2024-10-22 12:56 | XMS_ITS | Encounter Summary ---
Author Organization [facility] Address [address] [place] [address] Care Team Providers Care Credit Card Interviewer Name Role Phone Ashwini Ramos MD Primary Care Provider [phone] Encounter Details Date Type Department Care Team (Late st Contact Info) Description 10/16/1998 Outpatient Historical [facility] Internal Medicine Medical [place] A [facility] [address] [facility] [address] [address] Wellington Melara MD [address] [place] [address] Social History Tobacco Use Types Packs/Day Years Used Date Smoking Tobacco: Never Assessed Comments Unknown Sex and Gender Information Value Date Recorded Sex Assigned at Not on file Legal 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 [facility] [address] [place] [address] PCP - General Internal Medicine 12/04/15 DME 12/29/16 documented as of this encounter
--- OUTSIDE RECORDS SUMMARY | 2024-10-22 12:56 | XMS_ITS | Encounter Summary ---
Author Organization [employer] [facility] Address 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
--- OUTSIDE RECORDS SUMMARY | 2024-10-22 12:56 | XMS_ITS | Encounter Summary ---
Author Organization [facility] Address [address] [place] [address] Care Team Providers Care Embroiderer Name Role Phone Ashwini Ramos MD Primary Care Provider [phone] Encounter Details Date Type Department Care Team (Late st Contact Info) Description 03/03/2007 Outpatient Historical [facility] Internal Medicine Medical [place] A [facility] [address] [facility] [address] [address] Kyle Salinas MD [address] [id number] Social History Tobacco Use Types Packs/Day Years Used Date Smoking Tobacco: Never Assessed Comments Unknown Sex and Gender Information Value Date Recorded Sex Assigned at Not on file 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 [facility] [address] [place] [address] PCP - General Internal Medicine 12/04/15 DME 12/29/16 documented as of this encounter
--- OUTSIDE RECORDS SUMMARY | 2024-10-22 12:56 | XMS_ITS | Encounter Summary ---
Author Organization [facility] Address [address] [place] [address] Care Team Providers Care Electronic Assembler Group Leader Name Role Phone Ashwini Ramos MD Primary Care Provider [phone] Encounter Details Date Type Department Care Team (Late st Contact Info) Description 03/03/2007 Outpatient Historical [facility] Internal Medicine Medical [place] A [facility] [address] [facility] [address] [address] Kyle Salinas MD [address] [id number] Social History Tobacco Use Types Packs/Day Years Used Date Smoking Tobacco: Never Assessed Comments Unknown Sex and Gender Information Value Date Recorded Sex Assigned at Not on file 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 [facility] [address] [place] [address] PCP - General Internal Medicine 12/04/15 DME 12/29/16 documented as of this encounter
--- OUTSIDE RECORDS SUMMARY | 2024-10-22 12:56 | XMS_ITS | Encounter Summary ---
Author Organization [employer] Address 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 Not on file Not on file Not on file documented as of this encounter Plan of Treatment Not on file documented as of this encounter Visit Diagnoses Not on filedocumented in this encounter Care Teams Central Office Operator Relationship Specialty Start Date End Date Ashwini Ramos MD [address] [place] [address] PCP - General Internal Medicine 12/04/15 DME 12/29/16 documented as of this encounter
--- OUTSIDE RECORDS SUMMARY | 2024-10-22 12:56 | XMS_ITS | Encounter Summary ---
Author Organization [employer] Address 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 [address] [place] [address] PCP - General Internal Medicine 12/04/15 DME 12/29/16 documented as of this encounter
--- OUTSIDE RECORDS SUMMARY | 2024-10-22 12:56 | XMS_ITS | Encounter Summary ---
Author Organization [employer] Address 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
--- OUTSIDE RECORDS SUMMARY | 2024-10-22 12:56 | XMS_ITS | Encounter Summary ---
Author Organization [facility] Address 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
--- OUTSIDE RECORDS SUMMARY | 2024-10-22 12:56 | XMS_ITS | Encounter Summary ---
Author Organization [facility] Address [address] [place] [address] Care Team Providers Care Kinesiology Internship Name Role Phone Ashwini Ramos MD Primary Care Provider [phone] Encounter Details Date Type Department Care Team (Late st Contact Info) Description 07/30/1998 Outpatient Historical [facility] Internal Medicine Medical [place] A [facility] [address] [facility] [address] [address] Wellington Melara MD [address] [place] [address] Social History Tobacco Use Types Packs/Day Years Used Date Smoking Tobacco: Never Assessed Comments Unknown Sex and Gender Information Value Date Recorded Sex Assigned at Not on file Legal Sex Female 4:52 AM 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 [facility] [address] [place] [address] PCP - General Internal Medicine 12/04/15 DME 12/29/16 documented as of this encounter
--- OUTSIDE RECORDS SUMMARY | 2024-10-22 12:56 | XMS_ITS | Encounter Summary ---
Author Organization [facility] Address [address] [place] [address] Care Team Providers Care Board Handler Name Role Phone Ashwini Ramos MD Primary Care Provider [phone] Encounter Details Date Type Department Care Team (Late st Contact Info) Description 02/16/2005 Outpatient Historical [facility] Internal Medicine Medical [place] [facility] [address] [facility] [address] [address] Kyle Salinas MD [address] [facility] [address] [place] [address] Social History Tobacco Use Types Packs/Day Years Used Date Smoking Tobacco: Never Assessed Comments Unknown Sex and Gender Information Value Date Recorded Sex Assigned at Not on file Legal 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 Female 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 Gender Identity Not on file Sexual Orientation Not on file documented as of this encounter Last Filed Vital Signs Vital Sign Reading Time Taken Comments Blood Pressure 122/82 02/16/2005 11:00 AM CDT Pulse 74 02/16/2005 11:00 AM CDT Temperature 36.4 C (97.6 F) 02/16/2005 11:00 AM CDT Respiratory Rate - - Oxygen Saturation - - Inhaled Oxygen Concentration - - Weight 90.7 kg (200 lb) 02/16/2005 11:00 AM CDT Height - - Body Mass Index - - documented in this encounter Plan of Treatment Not on file documented as of this encounter Visit Diagnoses Not on filedocumented in this encounter Care Teams Board Handler Relationship Specialty Start Date End Date Ashwini Ramos MD [address] [place] [address] PCP - General Internal Medicine 12/04/15 DME 12/29/16 documented as of this encounter
--- OUTSIDE RECORDS SUMMARY | 2024-10-22 12:56 | XMS_ITS | Encounter Summary ---
Author Organization [facility] Address [address] [place] [address] Care Team Providers Care Advance Seal Delivery System Maintainer Name Role Phone Ashwini Ramos MD Primary Care Provider [phone] Encounter Details Date Type Department Care Team (Late st Contact Info) Description 10/14/2006 Orders Only [facility] Internal Medicine Medical [place] A [facility] [address] [address] Kyle Salinas MD [address] [facility] [address] [place] [id number] Social History Tobacco Use Types Packs/Day Years Used Date Smoking Tobacco: Never Assessed Comments Unknown Sex and Gender Information Value Date Recorded Sex Assigned at Not on file 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 TOBACCO USE Patient does not currently use tobacco. MEDICATIONS: Medication list current. CHIEF COMPLAINT Patient here for follow up of hypothyroidism, depression. Complains of fatigue. HISTORY: Merari comes to the office stating I'm under stress. She had called the office last week complaining that she had been feeling down and very tired. Symptoms at that time had been occurring for about two weeks. The patient had been placed on Effexor and had noted some improvement, although he still felt depressed. She was having problems sleeping but she had not been using her CPAP forhis sleep apnea. He started using her CPAP again a couple of days ago and her sleeping has already improved. T-3 Free and T-4 Free Were obtained and wound within normal limits the free T4 at the upper limit of normal being 1.8. Free T3 was in the middle of the normal range. The patient's TSH had been suppressed at .04. She is presently taking Levoxyl 150 mcg daily. She recently had blood work done by her investment sales assistant that revealed cholesterol 232 and LDL cholesterol 154. Comprehensive metabolic profile and CBC were within normal limits. PHYSICAL EXAMINATION: CONSTITUTIONAL: GENERAL APPEARANCE: Healthy appearing patient in no distress. NECK/THYROID: Trachea midline. No thyroid enlargement, tenderness, or mass. No supraclavicular or cervical adenopathy. RESPIRATORY: Clear to auscultation and percussion. Normal respiratory effort. CARDIOVASCULAR: CARDIAC: Regular rhythm. No murmurs, rubs, or gallops. EDEMA/VARICOSITIES OF EXTREMITIES: No edema or varicosities. PSYCHIATRIC: Depressed appearing. Denies suicidal ideation. ASSESSMENT/PLAN: 244.9-HYPOTHYROIDISM ASSESSMENT: Euthyroid, albeit at the upper limits with regards to Free T4 RECOMMENDATIONS: Continue 150 mcg Synthroid daily. Repeat TSH with reflex levels 3 months from now. 311-DEPRESSION ASSESSMENT: Marginally better after starting Effexor. More importantly, she has also recently resumed her CPAP RECOMMENDATIONS: Gradual upward titration of Effexor. She will take 112.5 mg daily x 1 week and then 150 mg thereafter. She will follow-up Six weeks from now. MEDICATIONS: EFFEXOR XR ORAL CAPSULE 24 HR 150 MG, 1 Every Morning, 30 Dispensed, 3 Fills, status: NEW PRESCRIPTION, 10/14/2006. 780.57-SLEEP APNEA ASSESSMENT: Largely noncompliant RECOMMENDATIONS: Strongly encouraged patient utilize her CPAP on a nightly basis. HEALTH MAINTENANCE: LAST PAP DATE: 09/2006. LAST MAMMOGRAM DATE: discuss. DISCUSSED SMOKING: NON smoker. LAST DATE COLONOSCOPY: discuss. TIME PHYSICIAN WITH PATIENT: TOTAL: 15 minutes. RETURN VISIT : Patient wishes to make own appointment. Electronically Signed by: Romie Salinas MD on Monday, October 16, 2006 documented in this encounter Plan of Treatment Not on file documented as of this encounter Visit Diagnoses Not on filedocumented in this encounter Care Teams Advance Seal Delivery System Maintainer Relationship Specialty Start Date End Date Ashwini Ramos MD [address] [place] [phone] PCP - General Internal Medicine 12/04/15 DME 12/29/16 documented as of this encounter
--- OUTSIDE RECORDS SUMMARY | 2024-10-22 12:56 | XMS_ITS | Clinical Summary ---
Author Organization [facility] Address [address] [place] [address] Care Team Providers Care Cured Meats Supervisor Name Role Phone Homer Reveles MD Primary Care Provider [phone] Source Comments [facility],non-owned Affiliates and Associated Physician Practices is amultiple site organization consisting of ambulatory clinics and hospital sitesin [place], [place], [place] and [place]. This disclosure is being madepursuant to the Care Everywhere program and may not contain all information available regarding this patient. Last updated 18.[facility] [employer] Allergies Active Allergy Reactions Criticality Noted Date Comments Nickel Other 09/23/2021 Contact dermititis Medications * Be aware that medications may not be up to date on this document. Alwaysverify current medications with the patient. acetaminophen (TYLENOL) 325 MG tablet Take 2 (two) tablets by mouth every 6 hours Maximum allowable Acetaminophen amount = 4 Grams (4000 mg) / 24 hours. 2 Active calcium carbonate (TUMS) 500 MG chew tablet Take 2 (two) tablets by mouth every 4 hours as needed 2 Active apixaban (ELIQUIS) 5 MG tablet Take 1 (one) tablet by mouth 2 times daily 0 2 Active venlafaxine XR 24hr (EFFEXOR XR) 75 MG capsule Take 1 (one) capsule by mouth daily with dinner 2 Active pravastatin (PRAVACHOL) 20 MG tablet Take 1 (one) tablet by mouth at bedtime 2 Active metoprolol tartrate (LOPRESSOR) 25 MG tablet Take 1 (one) tablet by mouth 2 times daily 2 Active polyethylene glycol 3350 (MIRALAX) 17 g packet Take 17 (seventeen) g by mouth once daily 2 Active senna (SENOKOT EXTRA STRENGTH) 17.2 MG Take 17.2 mg by mouth once daily 2 Active melatonin 3 MG tablet Take 1 (one) tablet by mouth nightly as needed for Insomnia 2 Active levothyroxine (SYNTHROID) 100 MCG tablet Take 1 (one) tablet by mouth once daily 2 Active oxyCODONE, immediate release, (ROXICODONE) 5 MG tablet Take 1 (one) tablet by mouth every 4 hours as needed 12 tablet 2 Active Active Problems Problem Noted Date Diagnosed Date Impaired mobility and ADLs 09/25/2021 Fall, initial encounter 09/23/2021 Type III open fracture of left ankle, initial en counter 09/23/2021 Resolved Problems Problem Noted Date Diagnosed Date Resolved Date Pneumonia 09/25/2021 10/23/2021 Immunizations Immunization Administration Dates Next Due TDAP (7yrs+) 09/23/2021 Family History Medical History Relation Name Comments High Cholesterol Brother Cancer - Breast Cousin CVA Father Diabetes; unknown type Father High Cholesterol Father Cancer - Breast Maternal Aunt Cancer - Stomach Maternal Grandmother High Cholesterol Mother CVA Paternal Aunt High Cholesterol Sister Relation Name Status Comments Brother Cousin Father Maternal Aunt Maternal Grandmother Mother Paternal Aunt Sister Social History Tobacco Use Types Packs/Day Years Used Date Smoking Tobacco: Never Smokeless Tobacco: Never Tobacco Cessation:Counseling Given: Not Answered Alcohol Use Standard Drinks/Week Comments Not Currently 1 (1 standard drink = 0.6 oz pur e alcohol) Very seldom,social drinker AUDIT-C Answer Date Recorded Q1: How often do you have a drink containing alcohol? Never 09/26/2021 Q2: How many drinks containi ng alcohol do you have on a typical day when you are drinking? Patient does not drink 2 Q3: How often do you have si x or more drinks on one occasion? Never 09/26/2021 Hunger Vital Sign Answer Date Recorded Within the past 12 months, y ou worried that your food would run out before you got the money to buy more. Never true 09/25/19 22 Within the past 12 months, t he food you bought just didn't last and you didn't have money to get more. 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 Height 160 cm (5' 3) 06/16/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 Body Mass Index 29.94 06/16/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 Plan of Treatment Health Maintenance Due Date Last Done Comments BONE DENSITY TESTING 1945 MEDICARE AWV 12 MONTHS 1945 PNEUMOCOCCAL VACCINE 50+ (1 of 1 - PCV) 1995 ZOSTER VACCINE (1 of 2) 1995 Respiratory Syncytial Virus (RSV) Vaccine Pt: or over 60 yrs (1 - 1-dose 75+ series) 2020 COVID-19 VACCINE (1 - season) 2024 DEPRESSION SCREENING 05/16/2024 INFLUENZA VACCINE (Season Ended) 2025 02/14/2019, 01/29/2014, 02/12/2013, Additional history exists DTAP/TDAP/TD VACCINES (2 - Td or Tdap) 09/24/2031 09/23/2021 HEPATITIS B VACCINE Aged Out No longe r eligible based on patient's age to complete this topic HIB VACCINE Aged Out No longer eligi ble based on patient's age to complete this topic HPV VACCINE Aged Out No longer eligi ble based on patient's age to complete this topic MENINGOCOCCAL (Group B) VACCINE SHARED DECISION-MAKING Aged Out No longer eligible based on patient's age to complete this topic MENINGOCOCCAL GROUPS A/C/Y/W VACCINE Aged Out No longer eligible based on patient's age to complete this topic Medical Devices Implanted Type Area Irrigation Flume Layer Device Identifier Shelf Expiration Date Model / Serial / Lot Screw 2.7mm 14mm T15 Lck Lopro Slf-Tap Implanted:Qty: 1 on 09/23/2021 by Jhonatan Palma MD at [facility] Left: Ankle [employer] 4 / / Screw 3.5mm 14mm Ft Slf-Tap Lopro Head Implanted:Qty: 1 on 09/23/2021 by Jhonatan Palma MD at [facility] [employer] 4 / / Screw 3.5mm 16mm Ft Slf-Tap Hex Lopro Implanted:Qty: 1 on 09/23/2021 by Jhonatan Palma MD at [facility] [employer] 6 / / Screw 3.5mm 48mm Ft Slf-Tap Hex Lopro Implanted:Qty: 1 on 09/23/2021 by Jhonatan Palma MD at [facility] [employer] 8 / / Plate 6 Hl Lck Lopro Fib Lt Dist 139mm Implanted:Qty: 1 on 09/23/2021 by Jhonatan Palma MD at [facility] Left: Ankle [employer] 6 / / Screw 2.7mm 16mm T15 Lck Lopro Slf-Tap Implanted:Qty: 3 on 09/23/2021 by Jhonatan Palma MD at [facility] Left: Ankle [employer] 6 / / Screw 2.7mm 18mm T15 Lck Lopro Slf-Tap Implanted:Qty: 1 on 09/23/2021 by Jhonatan Palma MD at [facility] Left: Ankle [employer] 8 / / Screw 3.5mm 50mm Lopro Can Nonster Bone Implanted:Qty: 1 on 09/23/2021 by Jhonatan Palma MD at [facility] Left: Ankle [employer] 0 / / Screw 4mm 40mm Ft Neelima Std Head Canc Tmx Implanted:Qty: 1 on 09/23/2021 by Jhonatan Palma MD at [facility] Left: Ankle [employer] [id number] / / Screw 2.7mm 30mm Ft Nonlock Hex Drv Elb Implanted:Qty: 1 on 09/23/2021 by Jhonatan Palma MD at [facility] [employer] 0 / / Explanted Type Area Irrigation Flume Layer Device Identifier Shelf Expiration Date Model / Serial / Lot Screw 3.5mm 12mm Ft Slf-Tap Hex Lopro Explanted:Qty: 1 on 09/23/2021 by Jhonatan Palma MD at [facility] [employer] [id number] / / Screw 3.5mm 14mm Ft Slf-Tap Lopro Head Explanted:Qty: 1 on 09/23/2021 by Jhonatan Palma MD at [facility] [employer] [id number] / / Wire K 1.6mm 6in Hlf Bynt Pnt Ss Fx Explanted:Qty: 2 on 09/23/2021 by Jhonatan Palma MD at [facility] [employer] [id number] / / Screw 2.7mm 14mm T15 Lck Lopro Slf-Tap Explanted:Qty: 1 on 09/23/2021 by Jhonatan Palma MD at [facility] Left: Ankle [employer] [id number] / / Screw 4mm 42mm Ft Neelima Std Head Canc Tmx Explanted:Qty: 1 on 09/23/2021 by Jhonatan Palma MD at [facility] Left: Ankle [employer] [id number] / / Insurance [facility] Advance Directives * Full Code (Latest Code Status on File) Date Activated Date Inactivated Comments 09/23/2021 2:39 PM 09/26/2021 4:31 PM Care Teams Cured Meats Supervisor Relationship Specialty Start Date End Date Homer Reveles MD [address] [facility] [address] [place] [address] PCP - General Internal Medicine 09/23/21
--- OUTSIDE RECORDS SUMMARY | 2024-10-22 12:56 | XMS_ITS | Encounter Summary ---
Author Organization [employer] Address 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
--- OUTSIDE RECORDS SUMMARY | 2024-10-22 12:56 | XMS_ITS | Encounter Summary ---
Author Organization [facility] Address [address] [place] [address] Care Team Providers Care Supervisor Tank House Name Role Phone Ashwini Ramos MD Primary Care Provider [phone] Encounter Details Date Type Department Care Team (Late st Contact Info) Description 12/07/2001 Outpatient Historical [facility] Internal Medicine Medical [place] A [facility] [address] [facility] 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 [facility] [address] [place] [address] PCP - General Internal Medicine 12/04/15 DME 12/29/16 documented as of this encounter
--- OUTSIDE RECORDS SUMMARY | 2024-10-22 12:56 | XMS_ITS | Encounter Summary ---
Author Organization [facility] Address [address] [place] [address] Care Team Providers Care Business Consultant Name Role Phone Ashwini Ramos MD Primary Care Provider [phone] Encounter Details Date Type Department Care Team (Late st Contact Info) Description 07/17/2007 Orders Only [facility] Internal Medicine Medical [place] [facility] [address] [facility] [address] [address] Kyle Salinas MD [address] [id number] Social History Tobacco Use Types Packs/Day Years Used Date Smoking Tobacco: Never Assessed Comments Unknown Sex and Gender Information Value Date Recorded Sex Assigned at Not on file 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 [facility] [address] [place] [address] PCP - General Internal Medicine 12/04/15 DME 12/29/16 documented as of this encounter
--- OUTSIDE RECORDS SUMMARY | 2024-10-22 12:56 | XMS_ITS | Clinical Summary ---
Author Organization [facility] Address [address] [place] [address] Phone Care Team Providers Care Scissors Sharpener Name Role Phone Ashwini Ramos MD Primary Care Provider [phone] Allergies Active Allergy Reactions Criticality Noted Date Comments Amoxicillin Swelling Low Nickel Other (See Comments) 11/06/2014 Cheap jewelry; causes black to skin & soreness to earlobes Yhvrany-Smf-Skd Reductase Inhibitors Muscle Pain Low 12/14/2018 Medications peg 400-hypromellose -glycerin 1-0.2-0.2 % solution Administer 1 Drop in both eyes 2 times daily as needed for Discomfort. Active FIBER CHOICE ORAL Take 2 Tablet by mouth daily. Active bisacodyl (DULCOLAX) 10 mg Suppository Insert 10 mg by rectum 1 time daily as needed for Constipation. Active cholecalciferol, vitamin D3, (VITAMIN D3) 1,000 unit Take 5 Tablets (5,000 Units) by mouth daily. 9 Active cetirizine (ZyrTEC) 10 mg tablet Take 1 Tablet (10 mg) by mouth daily. 1 9 Active fluticasone propionate (FLONASE) 50 mcg/spray [place], Suspension nasal inhaler Administer 2 Sprays in each nostril daily. 16 Gram 9 Active levothyroxine 100 mcg tabletIndication s:Hypothyroidism due to acquired atrophy of thyroid TAKE 1 TABLET BY MOUTH ONCE DAILY BEFORE BREAKFAST. 90 Tablet 3 0 Active venlafaxine (EFFEXOR XR) 150 mg Extended Release 24 hour capsuleIndicatio ns:Depression with anxiety Take 1 capsule by mouth daily 90 Capsule 3 0 Active ipratropium bromide (ATROVENT) 42 mcg (0.06 %) [place], Non-AerosolIndic ations:Rhinorrhe a Administer 2 Sprays in each nostril 3 times daily. 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 Anxiety state 04/16/2021 Statin intolerance 02/09/2019 Primary osteoarthritis involving multiple joints 02/09/2019 Vitamin D deficiency 02/07/2018 CKD (chronic kidney disease) stage 3, GFR 30-59 ml/min 12/04/2015 Postoperative anemia due to acute blood loss 11/2014 Diverticulosis 08/11/2009 Overview (08/11/2009): Noted on colonoscopy in 09/21 Hyperlipidemia 03/03/2007 Hypothyroidism 04/21/2004 SYL on CPAP 04/21/2004 Overview (11/24/2011): Cpap Age-related osteoporosis wit hout current pathological fracture 04/21/2004 Overview (08/12/2008): Took fosamax for 2 years, bone density improved and stopped. [id number] Resolved Problems Problem Noted Date Diagnosed Date Resolved Date Hypotension 09/05/2017 02/07/2018 Leukocytosis 12/20/2014 02/07/2018 Constipation 12/20/2014 12/29/2016 Hypotension 12/20/2014 12/29/2016 Hematuria 08/12/2008 02/07/2018 Overview (08/12/2008): Seen Urology, Dr. Negron Encounter for long-term (cur rent) use of other medications 03/13/2007 10/14/2011 Pain in limb 03/03/2007 08/12/2008 Need for prophylactic vaccin ation and inoculation against influenza 03/03/2007 08/12/2008 Pain in joint, lower leg 03/03/2007 Cough 05/13/2005 08/12/2008 Pure hypercholesterolemia 04/21/2004 Immunizations Immunization Administration Dates Next Due (PNEUMOVAX 23)(50 YRS UP) PN EUMOCOCCAL POLYSACCHARIDE (PPV23) 0.5 ML, IM 04/13/2010 (PREVNAR 13)(6 WKS UP) PNEUM OCOCCAL CONJUGATE (PCV13) 0.5 ML, IM 10/16/2015 (TDVAX)(7 YRS UP) TETANUS AN D DIPHTHERIA TOXOIDS, ADSORBED (2 LF OF TETANUS TOXOID AND 2 LF OF DIPHTHERIA TOXOID), 0.5ML (PF), IM 04/21/2004 INFLUENZA VACCINE HIGH DOSE QUADRIVALENT 65 YR UP PF IM 04/28/2020 Influenza Seasonal Unspecifi ed Formulation IM 02/25/2012,01/14/2011 Influenza Vaccine High Dose 65+ Yrs IM 9,07/21/2018() Influenza Vaccine Split 3+ Yrs IM 2013,02/12/2013,04/13/2010,03/03 Zoster Vaccine Live SQ Patie nt Supplied 12/01/2010 Family History Medical History Relation Name Comments High Cholesterol Brother 3 High Cholesterol Brother 4 Diabetes Father High Cholesterol Father Stroke Father Breast Cancer Maternal Aunt Breast Cancer Maternal Cousin Cancer Maternal Grandfather stomach Diabetes Maternal Grandmother High Cholesterol Mother Stroke Paternal Aunt 1 Stroke Paternal Aunt 2 Stroke Paternal Aunt 3 Ovarian Cancer Neg Hx Relation Name Status Comments Brother 1 Alive Brother 2 Alive Brother 3 Brother 4 Father (Age 72) STROKE Maternal Aunt Maternal Cousin Maternal Grandfather Maternal Grandmother Mother Paternal Aunt 1 Paternal Aunt 2 Paternal Aunt 3 Social History Tobacco Use Types Packs/Day Years Used Date Smoking Tobacco: Never Smokeless Tobacco: Never Tobacco Cessation:Counseling Given: No Alcohol Use Standard Drinks/Week Comments Yes 0 (1 standard drink = 0.6 oz pur e alcohol) rarely Social Connections Answer Date Recorded In a typical week, how many times do you talk on the phone with family, friends, or neighbors? Once a week 04/28/2020 How often do you get togethe r with friends or relatives? Once a week 04/28/2020 How often do you attend [facility] or confucianist services? More than 4 times per year 04/28/2020 Do you belong to any clubs o r organizations such as jew groups, unions, fraternal or athletic groups, or school groups? No 04/28/2020 How often do you attend meet ings of the clubs or organizations you belong to? More than 4 times per year 04/28/2020 Marital Status Not on file 04/28/2020 Financial Resource Strain Answer Date R ecorded How hard is it for you to pa y for the very basics like food, housing, medical care, and heating? Not hard at all 04/28/2020 Food Insecurity Answer Date Recorded Within the past 12 months, y ou worried that your food would run out before you got the money to buy more. Never true 04/28/20 20 Within the past 12 months, t he food you bought just didn't last and you didn't have money to get more. Never true 04/28/2020 Transportation Needs Answer Date Record ed In the past 12 months, has l ack of transportation kept you from medical appointments or from getting medications? No 04/15 In the past 12 months, has l ack of transportation kept you from meetings, work, or from getting things needed for daily living? No 04/28/2020 Education Answer Date Recorded What is the highest level of school you have completed or the highest degree you have received? 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 Not on file Not on file Not on file Not on file Not on file Not on file Not on file Last Filed Vital Signs Vital Sign Reading Time Taken Comments Blood Pressure 128/60 04/28/2020 9:19 AM BABY FORMULA MIXER Pulse 87 04/28/2020 9:19 AM BABY FORMULA MIXER Temperature 36.8 C (98.3 F) 02/14/2019 11:29 AM CDT Respiratory Rate 16 04/28/2020 9:19 AM BABY FORMULA MIXER Oxygen Saturation 99% 04/28/2020 9:19 AM BABY FORMULA MIXER Inhaled Oxygen Concentration - - Weight 78.5 kg (173 lb) 05/23/2020 10:18 AM BABY FORMULA MIXER Height 160 cm (5' 2.99) 05/23/2020 10:18 AM BABY FORMULA MIXER Body Mass Index 30.65 05/23/2020 10:18 AM BABY FORMULA MIXER Plan of Treatment Health Maintenance Due Date Last Done Comments DTAP/TDAP/TD VACCINES (1 - Tdap) 04/22/2004 04/21/20 04 ZOSTER VACCINE (2 of 3) 01/26/2011 12/01/2010 RSV VACCINE (60+ or ) (1 - 1-dose 75+ series) 2020 Traditional Medicare (ACO) A nnual Wellness Visit 04/29/2021 04/28/2020, 02/14/2019, 02/07/2018, Additional history exists OSTEOPOROSIS SCREENING 05/19/2022 1, 05/19/2020, 05/19/2020, Additional history exists INFLUENZA VACCINE (#1) 2023 0, 02/14/2019, 01/29/2014, Additional history exists PNEUMOCOCCAL VACCINE 50+ YEARS Completed 0 10/16/2015, 04/13/2010, 04/13/2010 COLORECTAL SCREENING Discontinued 01/08/2021, 10/02/19 09 Colorectal Cancer Screening Discontinued FIT-DNA Q 3 years Discontinued FIT/FOBT Q 1 year Discontinued Flex Sig/CT Colonography Q 5 years Discontinued Medical Devices Implanted Type Area Insurance Risk Manager Device Identifier Shelf Expiration Date Model / Serial / Lot Biomet Bone Cement Implanted:Qt y: 2 on 07/20/2018 by Wellington Hsu MD at [facility] Cement Right: Knee [employer] [id number] 12/13/2022 [id number] / / [id number] Description:requisition # [id number]. Shell G7 Pps Lmtd Hl 54mm [id number] - [id number] Implanted:Qt y: 1 on 12/19/2014 by Wellington Hsu MD at [facility] Hip Left: Hip [employer] 10/13/2024 [id number] / / [id number] Description:PROCESSED ON REQ UISITION,[id number]. Liner Arcomxl Neut 40mm Szf [id number] - [id number] Implanted:Qt y: 1 on 12/19/2014 by Wellington Hsu MD at [facility] Hip Left: Hip [employer] 11/12/2018 [id number] / / [id number] Stem Fem Echo Bimetric Por Nc [id number] - [id number] Implanted:Qt y: 1 on 12/19/2014 by Wellington Hsu MD at [facility] Hip Left: Hip [employer] 11/14/2024 [id number] / / [id number] Slv Biolox Delta Optn Type 1 [id number] - [id number] Implanted:Qt y: 1 on 12/19/2014 by Wellington Hsu MD at [facility] Hip Left: Hip [employer] 03/15/2023 [id number] / / [id number] Head Fem Biolox Option 40mm [id number] - [id number] Implanted:Qt y: 1 on 12/19/2014 by Wellington Hsu MD at [facility] Hip Left: Hip [employer] 12/13/2024 [id number] / / [id number] Shell G7 Pps Lmtd Hl 54mm [id number] - [id number] Implanted:Qt y: 1 on 09/05/2017 by Wellington Hsu MD at [facility] Hip Right: Acetabulum [employer] [id number] 08/12/2027 [id number] / / [id number] Description:REQUISITION # [id number] Liner Arcomxl Neut 36mm Szf [id number] - [id number] Implanted:Qt y: 1 on 09/05/2017 by Wellington Hsu MD at [facility] Hip Right: Acetabulum [employer] [id number] 07/17/2022 [id number] / / [id number] Stem Fem Echo Bimetric Por Nc [id number] - [id number] Implanted:Qt y: 1 on 09/05/2017 by Wellington Hsu MD at [facility] Hip Right: Hip [employer] 05/30/2027 [id number] / / [id number] Head Fem Mod Cer Biolox 36mm [id number] - [id number] Implanted:Qt y: 1 on 09/05/2017 by Wellington Hsu MD at [facility] Hip Right: Hip [employer] 01/26/2027 [id number] / / [id number] Patella 3peg Series A [id number] - [id number] Implanted:Qt y: 1 on 07/20/2018 by Wellington Hsu MD at [facility] Knee Right: Knee [employer] 06/12/2023 [id number] / / [id number] Comp Tib Intrlk Prim 75mm [id number] - [id number] Implanted:Qt y: 1 on 07/20/2018 by Wellington Hsu MD at [facility] Knee Right: Knee [employer] 09/27/2027 [id number] / / [id number] Stem Tib Prim Finned 40mm [id number] - [id number] Implanted:Qt y: 1 on 07/20/2018 by Wellington Hsu MD at [facility] Knee Right: Knee [employer] 06/24/2028 [id number] / / [id number] Comp Fem Vngrd Ti 65mm [id number] - [id number] Implanted:Qt y: 1 on 07/20/2018 by Wellington Hsu MD at [facility] Knee Right: Knee [employer] 06/19/2028 [id number] / / [id number] Brg Tib Vngrd Ant Stblzd [id number] - [id number] Implanted:Qt y: 1 on 07/20/2018 by Wellington Hsu MD at [facility] Knee Right: Knee [employer] 05/30/2023 [id number] / / [id number] Screw G7 Lp 6.5x25mm [id number] - [id number] Implanted:Qt y: 1 on 12/19/2014 by Wellington Hsu MD at [facility] Screw Left: Hip [employer] 06/15/2024 [id number] / / [id number] Screw G7 Lp 6.5x25mm [id number] - [id number] Implanted:Qt y: 1 on 09/05/2017 by Wellington Hsu MD at [facility] Screw Right: Acetabulum [employer] [id number] 06/21/2027 [id number] / / [id number] Procedures Procedure Name Priority Date/Time Associated Diagnosis Comments XR DEXA BONE DENSITY AXIAL 1 OR MORE SITES Routine 05/19/2020 1:12 PM BABY FORMULA MIXER Osteopenia, unspecified location Medicare annual wellness visit, subsequent Post-menopausal from Last 3 Months or Most Recently Relevant to Health Maintenance Results * XR DEXA BONE DENSITY AXIAL 1 OR MORE SITES (05/19/2020 1:12 PM BABY FORMULA MIXER) Anatomical Region Laterality Modality Digital Radiogra phy 05/19/2020 1:12 PM BABY FORMULA MIXER Narrative 05/19/2020 2:57 PM BABY FORMULA MIXER XR DEXA BONE DENSITY AXIAL 1 OR MORE SITES DATE: 05/19/2020 1:12 PM HISTORY: 75 years old Female with post menopausal symptoms. PROCEDURE: Planar images of the lumbar spine, forearm using a [employer] DEXA scanner for bone mineral density determination (BMD). Comparison is made with the prior bone density performed 09/13/2016 FINDINGS: Lumbar Spine (L1-L4) 1.578 gm/cm2, T-score: -3.3 Prior: 1.513 gm/cm2, +4.3% change Left Radius 33% 0.800 gm/cm2, T-score: -0.9 Prior: 0.803 gm/cm2, -0.4% change Right Radius 33% 0.801 gm/cm2, T-score: -0.9 Comments: No prior right forearm bone mineral density measurements are available for comparison. The bilateral hips were excluded from bone mineral density measurements secondary to the presence of orthopedic hardware. IMPRESSION Osteoporotic bone mineral density. STATISTICAL CHANGE: Significant increase in bone mineral density of the lumbar spine since the prior study. A statistically significant change is defined as a change of greater than 2.5 standard deviations in the least significant difference from the prior study. Least significant differences are defined as follows: Lumbar spine: +/- 0.010 g/cm2 Femoral neck: +/- 0.014 g/cm2 Forearm radius 33%: +/- 0.020 g/cm2 DEFINITIONS: Normal: T-score above -1.0 Osteopenia T-score less than -1.0 and above -2.5 Osteoporosis: T-score < -2.5 Due to the presence of bilateral orthopedic hardware in the hips, FRAX scores are not available for evaluation. FOLLOW-UP RECOMMENDATIONS: Patients without high risk factors for osteoporosis: T-score -1.0 to -1.5 - Consider repeat BMD in 5-10 years T-score -1.5 to -2.0 - Consider repeat BMD in 3-5 years T-score -2.0 to - 2.5 - Consider repeat BMD every 2 years Patients on treatment for osteoporosis: 1-2 years after initiation of treatment and every 2 years [address] Aki Sherman DO DICTATION LOCATION: Location 1 - [facility] Procedure Note Aki Sherman DO - 05/19/2020 XR DEXA BONE DENSITY AXIAL 1 OR MORE SITES DATE: 05/19/2020 1:12 PM HISTORY: 75 years old Female with post menopausal symptoms. PROCEDURE: Planar images of the lumbar spine, forearm using a [employer] DEXA scanner for bone mineral density determination (BMD). Comparison is made with the prior bone density performed 09/13/2016 FINDINGS: Lumbar Spine (L1-L4) 1.578 gm/cm2, T-score: -3.3 Prior: 1.513 gm/cm2, +4.3% change Left Radius 33% 0.800 gm/cm2, T-score: -0.9 Prior: 0.803 gm/cm2, -0.4% change Right Radius 33% 0.801 gm/cm2, T-score: -0.9 Comments: No prior right forearm bone mineral density measurements are available for comparison. The bilateral hips were excluded from bone mineral density measurements secondary to the presence of orthopedic hardware. IMPRESSION Osteoporotic bone mineral density. STATISTICAL CHANGE: Significant increase in bone mineral density of the lumbar spine since the prior study. A statistically significant change is defined as a change of greater than 2.5 standard deviations in the least significant difference from the prior study. Least significant differences are defined as follows: Lumbar spine: +/- 0.010 g/cm2 Femoral neck: +/- 0.014 g/cm2 Forearm radius 33%: +/- 0.020 g/cm2 DEFINITIONS: Normal: T-score above -1.0 Osteopenia T-score less than -1.0 and above -2.5 Osteoporosis: T-score < -2.5 Due to the presence of bilateral orthopedic hardware in the hips, FRAX scores are not available for evaluation. FOLLOW-UP RECOMMENDATIONS: Patients without high risk factors for osteoporosis: T-score -1.0 to -1.5 - Consider repeat BMD in 5-10 years T-score -1.5 to -2.0 - Consider repeat BMD in 3-5 years T-score -2.0 to - 2.5 - Consider repeat BMD every 2 years Patients on treatment for osteoporosis: 1-2 years after initiation of treatment and every 2 [address] Aki Sherman, DO DICTATION LOCATION: Location [address] [place] [address] Jahaira Sims MANAGING CONSULTANT DIAGNOSTIC IMAGING NICA PEREZ Final Result from Last 3 Months or Most Recently Relevant to Health Maintenance Insurance MEDICARE PART A AND B [employer] MEDICARE SUPP AESSI RX [employer] Medicare Part D RX [employer] Medicare Part B Advance Directives For more information, please contact: [phone] * Full Code (Latest Code Status on File) Date Activated Date Inactivated Comments 07/20/2018 1:22 PM 07/21/2018 5:58 PM * Full Code Date Activated Date Inactivated Comments 07/20/2018 11:23 AM 07/20/2018 1:22 PM * Full Code Date Activated Date Inactivated Comments 07/20/2018 9:15 AM 07/20/2018 11:23 AM * Full Code Date Activated Date Inactivated Comments 09/05/2017 3:37 PM 09/06/2017 5:57 PM * Full Code Date Activated Date Inactivated Comments 09/05/2017 9:59 AM 09/05/2017 3:37 PM Care Teams Scissors Sharpener Relationship Specialty Start Date End Date Ashwini Ramos MD [address] [place] [phone] PCP - General Internal Medicine 12/04/15 DME 12/29/16
--- OUTSIDE RECORDS SUMMARY | 2024-10-22 12:56 | XMS_ITS | Encounter Summary ---
Author Organization [facility] Address [address] [place] [address] Care Team Providers Care Preschool Director Name Role Phone Ashwini Ramos MD Primary Care Provider [phone] Encounter Details Date Type Department Care Team (Late st Contact Info) Description 10/14/2006 Outpatient Historical [facility] Internal Medicine Medical [place] A [facility] [address] [facility] [address] [address] Kyle Salinas MD [address] [facility] [address] [place] [id number] Social History Tobacco Use Types Packs/Day Years Used Date Smoking Tobacco: Never Assessed Comments Unknown Sex and Gender Information Value Date Recorded Sex Assigned at Not on file Legal 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 Gender Identity Not on file Sexual Orientation Not on file documented as of this encounter Last Filed Vital Signs Vital Sign Reading Time Taken Comments Blood Pressure 110/70 10/14/2006 12:00 PM CDT Pulse 88 10/14/2006 12:00 PM CDT Temperature 36.9 C (98.5 F) 10/14/2006 12:00 PM CDT Respiratory Rate 12 10/14/2006 12:00 PM CDT Oxygen Saturation - - Inhaled Oxygen Concentration - - Weight 87.5 kg (193 lb) 10/14/2006 12:00 PM CDT Height - - Body Mass Index 31.15 12/21/2005 2:45 PM CDT documented in this encounter Plan of Treatment Not on file documented as of this encounter Visit Diagnoses Not on filedocumented in this encounter Care Teams Preschool Director Relationship Specialty Start Date End Date Ashwini Ramos MD [address] [place] [phone] PCP - General Internal Medicine 12/04/15 DME 12/29/16 documented as of this encounter
--- OUTSIDE RECORDS SUMMARY | 2024-10-22 12:56 | XMS_ITS | Encounter Summary ---
Author Organization [facility] Address [address] [place] [address] Care Team Providers Care Practice Billing Associate Name Role Phone Ashwini Ramos MD Primary Care Provider [phone] Encounter Details Date Type Department Care Team (Late st Contact Info) Description 04/24/1998 Outpatient Historical [facility] Internal Medicine Medical [place] A [facility] [address] [facility] [address] [address] Wellington Melara MD [address] [place] [address] Social History Tobacco Use Types Packs/Day Years Used Date Smoking Tobacco: Never Assessed Comments Unknown Sex and Gender Information Value Date Recorded Sex Assigned at Not on file Legal Sex Female 4:52 AM RN PHYSICIAN OFFICE Gender Identity Not on file Sexual Orientation Not on file documented as of this encounter Plan of Treatment Not on file documented as of this encounter Visit Diagnoses Not on filedocumented in this encounter Care Teams Practice Billing Associate Relationship Specialty Start Date End Date Ashwini Ramos MD [address] [facility] [address] [place] [address] PCP - General Internal Medicine 12/04/15 DME 12/29/16 documented as of this encounter
--- OUTSIDE RECORDS SUMMARY | 2024-10-22 12:56 | XMS_ITS | Encounter Summary ---
Author Organization [facility] Address [address] [place] [address] Care Team Providers Care Seat Cover Maker Name Role Phone Ashwini Ramos MD Primary Care Provider [phone] Encounter Details Date Type Department Care Team (Late st Contact Info) Description 03/03/2007 Orders Only [facility] Internal Medicine Medical [place] [facility] [address] [facility] [address] [address] Kyle Salinas MD [address] [facility] [address] [place] [address] Social History Tobacco Use Types Packs/Day Years Used Date Smoking Tobacco: Never Assessed Comments Unknown Sex and Gender Information Value Date Recorded Sex Assigned at Not on file Legal Sex Female 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 TOBACCO USE Patient does not currently use tobacco. MEDICATIONS: Medication list current. CHIEF COMPLAINT Seen for a preventive examination. Complains of leg pain bilaterally. HISTORY: Merari comes to the office for follow-up of a visit in October when she was seen complainingof depression and fatigue. The patient's Effexor was titrated upward after that visit. She had alsobeen encouraged to use her CPAP, something that she had not been compliant in following. She is also treated for hypothyroidism and is due to have her levels reassessed because of the borderline highfree T4. Since that visit she has had remarkable improvement in her depressive symptoms. Her present complaint is bilateral lower extremity pain. She has several different types as described below. Symptoms have been occurring for 2-3 weeks and were not preceded by any injury or unusual activity. Pain is worse in the left lower extremity, particularly about. She has noted pain along the medial joint lineand also behind the knee. I actually, he has mcqueen pain that usually bothers her if she is on her legs a lot. They can be particularly severe at night when she tries to sleep. She does get significantrelief with Alexus CURRENT PROBLEM LIST: 244.9 HYPOTHYROIDISM 272.0 PURE HYPERCHOLESTEROLEMIA 300.00 ANXIETY 311 DEPRESSION 715.90 OSTEOARTHROSIS UNSPECIFIED 729.5 PAIN LIMB (LEG OR ARM) 733.90 OSTEOPENIA 780.57 SLEEP APNEA CURRENT MEDICATION LIST: LEVOTHYROXINE SODIUM ORAL TABLET 150 MCG, 1 Every Day ASPIRIN ORAL TABLET 81 MG, 1 Every Day EFFEXOR XR ORAL CAPSULE 24 HR 150 MG, 1 Every Morning CURRENT ALLERGY LIST: AMOXICILLIN PHYSICAL EXAMINATION: CONSTITUTIONAL: GENERAL APPEARANCE: Healthy appearing patient in no distress. NECK/THYROID: Trachea midline. No thyroid enlargement, tenderness, or mass. No supraclavicular or cervical adenopathy. RESPIRATORY: Clear to auscultation and percussion. Normal respiratory effort. CARDIOVASCULAR: CARDIAC: Regular rhythm. No murmurs, rubs, or gallops. EDEMA/VARICOSITIES OF EXTREMITIES: No edema or varicosities. MUSCULOSKELETAL EXAM: SPINE/RIBS/PELVIS: No spinous processes tenderness, no paraspinal muscle tenderness. EXTREMITIES: Bilateral shins are unremarkable to inspection. Palpation does not reveal any abnormalities of for tenderness involving the entire length of the shins LEFT LOWER EXTREMITY: Inspection of the knees does not reveal any significant swelling. There is tenderness to palpation of the left knee medial joint line. Range of motion is intact, however at almost complete extension there is hesitation, followed by a click that is not painful. Palpation of theleft popliteal fossa reveals a small cystic structure in the medial compartment. This is only slightly tender to palpation. PSYCHIATRIC: Judgment appropriate. Oriented. Normal memory. Mood and affect appropriate.She no longer appears depressed OFFICE PROCEDURES: INJECTIONS & IMMUNIZATIONS: . INFLUENZA (> 3 YRS OF AGE INCL ADULT), 0.5, MILLILITERS, INTRAMUSCULAR INJECTION, Upper Left Arm, given by matthew on 03/03/2007; consent form signed, literature given; ASSESSMENT/PLAN: 244.9-HYPOTHYROIDISM ASSESSMENT: Euthyroid, albeit at the upper limits with regards to Free T4 RECOMMENDATIONS: Continue 150 mcg Synthroid daily. Repeat TSH with reflex LAB ORDERS: Order number: [id number] Test Ordered: TSH (REFLEX FREE T4/FREE T3) 1727 311-DEPRESSION ASSESSMENT: Patient's mood and affect are significantly improved with the patient presently on Effexor. More importantly, she has also recently resumed her CPAP RECOMMENDATIONS: Continue Effexor-XR 150 mg daily 729.5-PAIN LIMB (LEG OR ARM) ASSESSMENT: Patient probably has medial meniscal pathology causing some of her left knee symptoms. 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 The bilateral foreleg discomfort is less well defined. On concerned about thepossibility of pulmonary osteodystrophy. RECOMMENDATIONS: Plain films. If these are unremarkable the patient will probably need bone scan. In the meantime she should take Aleve one tablet b.i.d. LAB ORDERS: Order number: [id number] Test Ordered: XRAY TIBIA FIBULA LEFT Order number: [id number] Test Ordered: XRAY TIBIA FIBULA RIGHT 780.57-SLEEP APNEA ASSESSMENT: Improving compliance with CPAP RECOMMENDATIONS: Strongly encouraged patient utilize her CPAP on a nightly basis. 272.4-HYPERLIPIDEMIA ASSESSMENT: due for reassessment RECOMMENDATIONS: as below LAB ORDERS: Order number: [id number] Test Ordered: LIPID PANEL 1078 Order number: [id number] Test Ordered: COMPREHENSIVE METABOLIC PANEL & GFR 1112 V04.81-NEED FOR VACCINE INFLUENZA LAB ORDERS: Order number: [id number] Test Ordered: IMMUNIZATION ADMIN SINGLE 40652 Order number: [id number] Test Ordered: INJ-INFLUENZA ADULT 33044 719.46-PAIN JOINT KNEE LAB ORDERS: Order number: [id number] Test Ordered: XRAY KNEE (PATELLA) LEFT (4 VIEWS) HEALTH MAINTENANCE: LAST FLU VACCINE:03/03/2007 TIME PHYSICIAN WITH PATIENT: TOTAL: 15 minutes. RETURN VISIT : Patient wishes to make own appointment. Electronically Signed by: Romie Salinas MD on Monday, March 12, 2007 documented in this encounter Plan of Treatment Not on file documented as of this encounter Visit Diagnoses Not on filedocumented in this encounter Care Teams Seat Cover Maker Relationship Specialty Start Date End Date Ashwini Ramos MD [address] [place] [phone] PCP - General Internal Medicine 12/04/15 DME 12/29/16 documented as of this encounter
--- OUTSIDE RECORDS SUMMARY | 2024-10-22 12:56 | XMS_ITS | Encounter Summary ---
Author Organization [employer] Address 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
--- OUTSIDE RECORDS SUMMARY | 2024-10-22 12:56 | XMS_ITS | Encounter Summary ---
Author Organization [facility] Address [address] [place] [address] Care Team Providers Care Warp Knitter Helper Name Role Phone Ashwini Ramos MD Primary Care Provider [phone] Encounter Details Date Type Department Care Team (Late st Contact Info) Description 09/07/2000 Outpatient Historical [facility] Internal Medicine Medical [place] [facility] [address] 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 [facility] [address] [place] [address] PCP - General Internal Medicine 12/04/15 DME 12/29/16 documented as of this encounter
== END 2024-10-22 11:14 | disposition home or self-care (01) ==
PROVIDERS: PCP Internal Medicine; Visit Provider Internal Medicine
DX: M25.512 Pain in left shoulder (principal); R07.89 Other chest pain; W19.XXXA Unspecified fall, initial encounter
CPT/HCPCS: 71046; 73030

== ENCOUNTER 2024-11-26 09:48 | Outpatient (CLI) | payer MEDICARE, SELFPAY ==
--- NOTE | ~2024-11-26 | CT_ITS ---
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 Dose reduction technique was used on this scan by utilizing automated exposu re control and iterative reconstruction technique. The dose-length product (DLP) was 129.91 mGy-cm. COMPARISON: 10/27/2023 Findings: There is no evidence of any significant mediastinal, hilar or axillary lymphadenopathy. There is no f illing defect in the pulmonary arterial tree to suggest pulmonary embolus. There is no evidence of ao rtic dissection or aneurysm. There is no evidence of pleural or pericardial effusion. Extensive chronic interstitial disease with mild patchy ground glass opacity and several focal areas of more confluent consolidation are present the lungs, overall very similar to prior exam. Focal area of increased nodularity or consolidation peripherally at the left upper lobe (axial image 40). Images through the upper abdomen reveal no abnormalities. Impression: Focal area of increased nodularity consolidation peripheral to left upper lobe, nonspecific. Consider follow-up exam in 3-6 months to reassess. Otherwise, extensive chronic interstitial disease with patchy groundglass opacity and several additio nal focal areas of irregular consolidation are similar to prior exam. Reviewed, dictated and finalized at location . Impression: Focal area of increased nodularity consolidation peripheral to left upper lobe, nonspecific. Consider follow-up exam in 3-6 months to reassess. Otherwise, extensive chronic interstitial disease with patchy groundglass opaci ty and several additional focal areas of irregular consolidation are similar to prior exam.
--- OUTSIDE RECORDS SUMMARY | 2024-11-26 09:53 | XMS_ITS | Encounter Summary ---
Author Organization [employer] Address 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
--- OUTSIDE RECORDS SUMMARY | 2024-11-26 09:53 | XMS_ITS | Encounter Summary ---
Author Organization [facility] Address [address] [place] [address] Care Team Providers Care Color Separation Photographer Name Role Phone Ashwini Ramos MD Primary Care Provider [phone] Encounter Details Date Type Department Care Team (Late st Contact Info) Description 07/31/1999 Outpatient Historical [facility] Internal Medicine Medical [place] [facility] [address] [facility] [address] [address] Wellington Melara MD [address] [place] [address] Social History Tobacco Use Types Packs/Day Years Used Date Smoking Tobacco: Never Assessed Comments Unknown Sex and Gender Information Value Date Recorded Sex Assigned at Not on file Legal 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 [facility] [address] [place] [address] PCP - General Internal Medicine 12/04/15 DME 12/29/16 documented as of this encounter
--- OUTSIDE RECORDS SUMMARY | 2024-11-26 09:53 | XMS_ITS | Encounter Summary ---
Author Organization [facility] Address [address] [place] [address] Care Team Providers Care Used Car Make Ready Worker Name Role Phone Ashwini Ramos MD Primary Care Provider [phone] Encounter Details Date Type Department Care Team (Late st Contact Info) Description 04/21/2004 Outpatient Historical [facility] Internal Medicine Medical [place] [facility] [address] [facility] [address] [address] Wellington Melara MD [address] [place] [address] Social History Tobacco Use Types Packs/Day Years Used Date Smoking Tobacco: Never Assessed Comments Unknown Sex and Gender Information Value Date Recorded Sex Assigned at Not on file Legal 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 [facility] [address] [place] [address] PCP - General Internal Medicine 12/04/15 DME 12/29/16 documented as of this encounter
--- OUTSIDE RECORDS SUMMARY | 2024-11-26 09:53 | XMS_ITS | Encounter Summary ---
Author Organization [employer] Address 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
--- OUTSIDE RECORDS SUMMARY | 2024-11-26 09:53 | XMS_ITS | Encounter Summary ---
Author Organization [facility] Address [address] [place] [address] Care Team Providers Care Framing Mill Operator Name Role Phone Ashwini Ramos MD Primary Care Provider [phone] Encounter Details Date Type Department Care Team (Late st Contact Info) Description 12/07/2001 Outpatient Historical [facility] Internal Medicine Medical [place] [facility] [address] [facility] [address] [address] Wellington Melara MD [address] [place] [address] Social History Tobacco Use Types Packs/Day Years Used Date Smoking Tobacco: Never Assessed Comments Unknown Sex and Gender Information Value Date Recorded Sex Assigned at Not on file Legal Sex Female 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 [facility] [address] [place] [address] PCP - General Internal Medicine 12/04/15 DME 12/29/16 documented as of this encounter
--- OUTSIDE RECORDS SUMMARY | 2024-11-26 09:53 | XMS_ITS | Encounter Summary ---
Author Organization [employer] Address [address] [place] [address] Care Team Providers Care Assistant Pastry Chef Name Role Phone Ashwini Ramos MD Primary Care Provider [phone] Encounter Details Date Type Department Care Team (Late st Contact Info) Description 06/27/2003 Outpatient Historical [facility] Support Serv. (Adt Cardiology-[facility]) [address] [place] [address] Ham Goodson MD [address] 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
--- OUTSIDE RECORDS SUMMARY | 2024-11-26 09:53 | XMS_ITS | Encounter Summary ---
Author Organization [facility] Address [address] [place] [address] Care Team Providers Care Residential Property Tax Appraiser Name Role Phone Ashwini Ramos MD Primary Care Provider [phone] Encounter Details Date Type Department Care Team (Late st Contact Info) Description 07/30/1998 Outpatient Historical [facility] Internal Medicine Medical [place] [facility] [address] [facility] [address] [address] Wellington Melara MD [address] [place] [address] Social History Tobacco Use Types Packs/Day Years Used Date Smoking Tobacco: Never Assessed Comments Unknown Sex and Gender Information Value Date Recorded Sex Assigned at Not on file Legal Sex Female 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 [facility] [address] [place] [address] PCP - General Internal Medicine 12/04/15 DME 12/29/16 documented as of this encounter
--- OUTSIDE RECORDS SUMMARY | 2024-11-26 09:53 | XMS_ITS | Encounter Summary ---
Author Organization [employer] Address [address] [place] [address] Care Team Providers Care Transport Pilot Name Role Phone Ashwini Ramos MD Primary Care Provider [phone] Encounter Details Date Type Department Care Team (Latest Contact Info) Description 06/27/2003 Outpatient Historical [facility] Wellington Melara MD [address] [place] [address] SCREENING-CARDIOVAS C NEC (Primary Dx) Social History Tobacco Use Types Packs/Day Years Used Date Smoking Tobacco: Never Assessed Comments Unknown Sex and Gender Information Value Date Recorded Sex Assigned at Not on file Legal Sex Female 4:52 AM SURGICAL ASST Gender Identity Not on file Sexual Orientation Not on file documented as of this encounter Plan of Treatment Not on file documented as of this encounter Visit Diagnoses Diagnosis Screening for other and unspecified cardiovascular conditions- Primary documented in this encounter Care Teams Transport Pilot Relationship Specialty Start Date End Date Ashwini Ramos MD [address] [facility] [address] [place] [phone] PCP - General Internal Medicine 12/04/15 DME 12/29/16 documented as of this encounter
--- OUTSIDE RECORDS SUMMARY | 2024-11-26 09:53 | XMS_ITS | Encounter Summary ---
Author Organization [employer] Address 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
--- OUTSIDE RECORDS SUMMARY | 2024-11-26 09:53 | XMS_ITS | Encounter Summary ---
Author Organization [facility] Address [address] [place] [address] Care Team Providers Care Contract Graphic Designer Name Role Phone Ashwini Ramos MD Primary Care Provider [phone] Encounter Details Date Type Department Care Team (Late st Contact Info) Description 09/07/2000 Outpatient Historical [facility] Internal Medicine Medical [place] [facility] [address] [facility] [address] [address] Wellington Melara MD [address] [place] [address] Social History Tobacco Use Types Packs/Day Years Used Date Smoking Tobacco: Never Assessed Comments Unknown Sex and Gender Information Value Date Recorded Sex Assigned at Not on file Legal Sex Female 4:52 AM SENIOR GENETIC COUNSELOR Gender Identity Not on file Sexual Orientation Not on file documented as of this encounter Plan of Treatment Not on file documented as of this encounter Visit Diagnoses Not on filedocumented in this encounter Care Teams Contract Graphic Designer Relationship Specialty Start Date End Date Ashwini Ramos MD [address] [facility] [address] [place] [address] PCP - General Internal Medicine 12/04/15 DME 12/29/16 documented as of this encounter
--- OUTSIDE RECORDS SUMMARY | 2024-11-26 09:53 | XMS_ITS | Clinical Summary ---
Author Organization [facility] Virtual Care Address [address] [place] [address] Phone Care Team Providers Care Meeting Specialist Name Role Phone Homer Reveles MD Primary Care Provider [phone] Homer Reveles MD Unavailable [phone] Allergies Active Allergy Reactions Criticality Noted Date Comments Amoxicillin Unknown 02/12/2021 Nickel Other (See comments) Low 11/06/2014 Cheap jewelry; causes black to skin & soreness to earlobes Contact dermititis Medications Eliquis 5 mg tablet Take 1 tablet (5 mg total) by mouth 2 (two) times a day 01/24/20 21 Active ezetimibe (ZETIA) 10 mg tablet ezetimibe 10 mg tablet TAKE 1 TABLET BY MOUTH ONCE DAILY Active alendronate (FOSAMAX) 70 mg tablet TAKE 1 TABLET BY MOUTH ONCE A WEEK 01/15/20 21 Active cyanocobalamin (Vitamin B-12) 1,000 mcg tabletIndicatio ns:Prevention of Vitamin B12 Deficiency Take 1 tablet (1,000 mcg total) by mouth daily Active cholecalciferol , vitamin D3, (VITAMIN D3 ORAL) Active folic acid (FOLVITE) 800 mcg tablet Take 1 tablet (800 mcg total) by mouth daily 0.8 MG DAILY Active venlafaxine XR (EFFEXOR-XR) 75 mg 24 hr capsule Take 1 capsule (75 mg total) by mouth daily 05/18/19 22 Active coenzyme Q10 100 mg capsule Take 1 capsule (100 mg total) by mouth daily Active acetaminophen (TYLENOL) 325 mg tablet Take 2 tablets (650 mg total) by mouth every 6 (six) hours 09/27/19 Active sennosides 17.2 mg tablet Take 17.2 mg by mouth daily 09/27/19 22 Active FIBER CHOICE, INULIN, ORAL Take 2 tablets by mouth daily Active bisacodyL (DULCOLAX) 10 mg suppository Insert 1 suppository (10 mg total) into the rectum daily as needed Active fluticasone propionate (FLONASE) 50 mcg/actuation nasal spray Administer 2 sprays into affected nostril(s) daily 02/15/20 19 Active moxifloxacin (VIGAMOX) 0.5 % ophthalmic solution Vigamox 0.5 % eye drops Active Euthyrox 88 mcg tablet Take 1 tablet (88 mcg total) by mouth daily 01/06/20 22 Active polyethylene glycol (MIRALAX) 17 gram/dose powder Take 17 g by mouth daily 09/27/19 22 Active pravastatin (PRAVACHOL) 20 mg tablet Take 1 tablet (20 mg total) by mouth nightly 09/27/19 22 Active metoprolol tartrate (LOPRESSOR) 25 mg immediate release tablet Take 1 tablet by mouth twice daily 180 tablet 1 11/27/19 25 Active metoprolol tartrate (LOPRESSOR) 25 mg immediate release tablet Take 1 tablet by mouth twice daily 180 tablet 3 10/24/19 24 025 Discontinued Active Problems Problem Noted Date Diagnosed Date Nonrheumatic aortic valve insufficiency 10/26/19 23 Nonrheumatic mitral valve regurgitation 10/26/19 23 Other chest pain 07/06/2021 Permanent atrial fibrillation 02/12/2021 Mixed hyperlipidemia 02/12/2021 Current use of fpc anticoagulation 021 Other specified hypothyroidism 02/12/2021 Interstitial [...] on file Legal Sex Female 7:10 PM TEST DEPARTMENT HELPER Gender Identity Not on file Sexual Orientation Not on file Obstetrics History Last Filed Vital Signs Vital Sign Reading Time Taken Comments Blood Pressure 120/70 04/30/2024 10:01 AM TEST DEPARTMENT HELPER Pulse 86 04/30/2024 10:01 AM TEST DEPARTMENT HELPER Temperature 36.8 C (98.2 F) 01/29/2022 10:05 AM CDT Respiratory Rate 18 01/29/2022 10:05 AM CDT Oxygen Saturation 99% 04/30/2024 10:01 AM TEST DEPARTMENT HELPER Inhaled Oxygen Concentration - - Weight 72.8 kg (160 lb 8 oz) 04/30/2024 10:01 AM TEST DEPARTMENT HELPER Height 152.4 cm (5') 04/30/2024 10:01 AM TEST DEPARTMENT HELPER Body Mass Index 31.35 04/30/2024 10:01 AM TEST DEPARTMENT HELPER Plan of Treatment Health Maintenance Due Date Last Done Comments Depression Screening 1945 Hepatitis C Screening 1945 Hepatitis B Screening 1963 Well Visit 65+ 2010 Zoster Vaccine (2 of 3) 01/26/2011 12/01/2010 Fall Risk Assessment 02/12/2022 02/12/2021 Osteoporosis Screening-Bone Density Scan 05/19/2022 05/19/2020, 05/19/2020, 09/13/2016, Additional history exists Covid-19 Vaccine (3 - 2023-2 5 season) 2024 08/08/2020, 07/11/2020 Influenza Vaccine (#1) 2025 9, 01/29/2014, 02/12/2013, Additional history exists DTaP/Tdap/Td Vaccine (2 - Td or Tdap) 09/24/2031 09/23/2021, 04/21/2004 Pneumococcal vaccine 65+ Completed 10/16/2015, 03/17 Insurance MEDICARE [facility] MEDICARE [facility] MEDICARE SUPPLEMENT Care Teams Meeting Specialist Relationship Specialty Start Date End Date Homer Reveles MD [address] [place] [address] PCP - General Internal Medicine 06/04/21 Homer Reveles MD [address] [place] [address] Internal Medicine 06/04/21
--- OUTSIDE RECORDS SUMMARY | 2024-11-26 09:53 | XMS_ITS | Encounter Summary ---
Author Organization [facility] Address [address] [place] [address] Care Team Providers Care Salesperson Pianos And Organs Name Role Phone Ashwini Ramos MD Primary Care Provider [phone] Encounter Details Date Type Department Care Team (Late st Contact Info) Description 10/16/1998 Outpatient Historical [facility] Internal Medicine Medical [place] A [address] [facility] [address] [address] Wellington Melara MD [address] [place] [address] Social History Tobacco Use Types Packs/Day Years Used Date Smoking Tobacco: Never Assessed Comments Unknown Sex and Gender Information Value Date Recorded Sex Assigned at Not on file Legal Sex Female 4:52 AM RIGGER CHIEF Gender Identity Not on file Sexual Orientation Not on file documented as of this encounter Plan of Treatment Not on file documented as of this encounter Visit Diagnoses Not on filedocumented in this encounter Care Teams Salesperson Pianos And Organs Relationship Specialty Start Date End Date Ashwini Ramos MD [address] [facility] [address] [place] [address] PCP - General Internal Medicine 12/04/15 DME 12/29/16 documented as of this encounter
--- OUTSIDE RECORDS SUMMARY | 2024-11-26 09:53 | XMS_ITS | Encounter Summary ---
Author Organization [facility] Address [address] [place] [address] Care Team Providers Care Campus Safety Officer Name Role Phone Ashwini Ramos MD Primary Care Provider [phone] Encounter Details Date Type Department Care Team (Late st Contact Info) Description 01/10/2003 Outpatient Historical [facility] Internal Medicine Medical [place] A [email or web address] [address] [facility] [address] [address] Wellington Melara MD [address] [place] [address] Social History Tobacco Use Types Packs/Day Years Used Date Smoking Tobacco: Never Assessed Comments Unknown Sex and Gender Information Value Date Recorded Sex Assigned at Not on file Legal Sex Female 4:52 AM GARMENT SEWING 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 [facility] [address] [place] [address] PCP - General Internal Medicine 12/04/15 DME 12/29/16 documented as of this encounter
--- OUTSIDE RECORDS SUMMARY | 2024-11-26 09:53 | XMS_ITS | Encounter Summary ---
Author Organization [facility] Address [address] [place] [address] Care Team Providers Care Sleeve Setter Safety Stitch Name Role Phone Ashwini Ramos MD Primary Care Provider [phone] Encounter Details Date Type Department Care Team (Late st Contact Info) Description 02/16/2005 Outpatient Historical [facility] Internal Medicine Medical [place] A [facility] [address] [facility] [address] [address] Kyle Salinas MD [address] [facility] [address] [place] [address] Social History Tobacco Use Types Packs/Day Years Used Date Smoking Tobacco: Never Assessed Comments Unknown Sex and Gender Information Value Date Recorded Sex Assigned at Not on file Legal Sex Female 4:52 AM DIVIDING MACHINE OPERATOR HELPER Gender Identity Not on file Sexual [...] on filedocumented in this encounter Care Teams Sleeve Setter Safety Stitch Relationship Specialty Start Date End Date Ashwini Ramos MD [address] [place] [address] PCP - General Internal Medicine 12/04/15 DME 12/29/16 documented as of this encounter
--- OUTSIDE RECORDS SUMMARY | 2024-11-26 09:53 | XMS_ITS | Encounter Summary ---
Author Organization [facility] Address [address] [place] [address] Care Team Providers Care Dining Host Name Role Phone Ashwini Ramos MD Primary Care Provider [phone] Encounter Details Date Type Department Care Team (Late st Contact Info) Description 04/21/2004 Outpatient Historical [facility] Internal Medicine Medical [place] A [facility] [address] [facility] [address] [address] Wellington Melara MD [address] [place] [address] Social History Tobacco Use Types Packs/Day Years Used Date Smoking Tobacco: Never Assessed Comments Unknown Sex and Gender Information Value Date Recorded Sex Assigned at Not on file Legal Sex Female 4:52 AM AUDIT PRACTICE INTERN Gender Identity Not on file Sexual Orientation Not on file documented as of this encounter Plan of Treatment Not on file documented as of this encounter Visit Diagnoses Not on filedocumented in this encounter Care Teams Dining Host Relationship Specialty Start Date End Date Ashwini Ramos MD [address] [facility] [address] [place] [address] PCP - General Internal Medicine 12/04/15 DME 12/29/16 documented as of this encounter
--- OUTSIDE RECORDS SUMMARY | 2024-11-26 09:53 | XMS_ITS | Clinical Summary ---
Author Organization [facility] Address [address] [facility] [place] [address] Care Team Providers Care Resident Athletic Trainer Name Role Phone Homer Reveles MD Primary Care Provider Source Comments [facility],non-owned Affiliates and Associated Physician Practices is amultiple site organization consisting of ambulatory clinics and hospital sitesin [place], [place], [place] and [place]. This disclosure is being madepursuant to the Care Everywhere program and may not contain all information available regarding this patient. Last updated 18.[facility] [employer] Allergies Active Allergy Reactions Criticality Noted Date [...] 76.7 kg (169 lb) 06/16/2022 9:55 AM BRIDGE TEACHER Height 160 cm (5' 3) 06/16/2022 9:55 AM BRIDGE TEACHER Body Mass Index 29.94 06/16/2022 9:55 AM BRIDGE TEACHER Plan of Treatment Health Maintenance Due Date Last Done Comments BONE DENSITY TESTING 1945 MEDICARE AWV 12 MONTHS 1945 PNEUMOCOCCAL VACCINE 50+ (1 of 1 - PCV) 1995 ZOSTER VACCINE (1 of 2) 1995 Respiratory Syncytial Virus (RSV) Vaccine Pt: or over 60 yrs (1 - 1-dose 75+ series) 2020 COVID-19 VACCINE (1 - season) 2024 DEPRESSION SCREENING 05/16/2024 INFLUENZA VACCINE (#1) 2025 9, 01/29/2014, 02/12/2013, Additional history exists DTAP/TDAP/TD VACCINES [...] this topic Medical Devices Implanted Type Area Supervisor Brine Device Identifier Shelf Expiration Date Model / Serial / Lot Screw 2.7mm 14mm T15 Lck Lopro Slf-Tap Implanted:Qty: 1 on 09/23/2021 by Jhonatan Palma MD at [facility] Left: Ankle [employer] 4 / / Screw 3.5mm 14mm Ft Slf-Tap Lopro Head Implanted:Qty: 1 on 09/23/2021 by Jhonatan Palma MD at [facility] [employer] 4 / / Screw 3.5mm 16mm Ft Slf-Tap Hex Lopro Implanted:Qty: 1 on 09/23/2021 by Jhonatan Palma MD at [facility] [employer] 6 / / Screw 3.5mm 48mm Ft Slf-Tap Hex Lopro Implanted:Qty: 1 on 09/23/2021 by Jhonatan Palma MD at [facility] [employer] 8 / / Plate 6 Hl Lck Lopro Fib Lt Dist 139mm Implanted:Qty: 1 on 09/23/2021 by Jhonatan Palma MD at [facility] Left: Ankle [employer] 6 / / Screw 2.7mm 16mm T15 Lck Lopro Slf-Tap Implanted:Qty: 3 on 09/23/2021 by Jhonatan Palma MD at [facility] Left: Ankle [employer] 6 / / Screw 2.7mm 18mm T15 Lck Lopro Slf-Tap Implanted:Qty: 1 on 09/23/2021 by Jhonatan Palma MD at [facility] Left: Ankle [employer] 8 / / Screw 3.5mm 50mm Lopro Can Nonster Bone Implanted:Qty: 1 on 09/23/2021 by Jhonatan Palma MD at [facility] Left: Ankle [employer] 0 / / Screw 4mm 40mm Ft Neelima Std Head Canc Tmx Implanted:Qty: 1 on 09/23/2021 by Jhonatan Palma MD at [facility] Left: Ankle [employer] [id number] / / Screw 2.7mm 30mm Ft Nonlock Hex Drv Elb Implanted:Qty: 1 on 09/23/2021 by Jhonatan Palma MD at [facility] [employer] 0 / / Explanted Type Area Supervisor Brine Device Identifier Shelf Expiration Date Model / Serial / Lot Screw 3.5mm 12mm Ft Slf-Tap Hex Lopro Explanted:Qty: 1 on 09/23/2021 by Jhonatan Palma MD at [facility] [employer] [id number] / / Screw 3.5mm 14mm Ft Slf-Tap Lopro Head Explanted:Qty: 1 on 09/23/2021 by Jhonatan Palma MD at [facility] [employer] [id number] / / Wire K 1.6mm 6in Hlf Bynt Pnt Ss Fx Explanted:Qty: 2 on 09/23/2021 by Jhonatan Palma MD at [facility] [employer] [id number] / / Screw 2.7mm 14mm T15 Lck Lopro Slf-Tap Explanted:Qty: 1 on 09/23/2021 by Jhonatan Palma MD at [facility] Left: Ankle [employer] [id number] / / Screw 4mm 42mm Ft Neelima Std Head Canc Tmx Explanted:Qty: 1 on 09/23/2021 by Jhonatan Palma MD at [facility] Left: Ankle [employer] [id number] / / Insurance [facility] Address: [address] [place] [address] MEDICARE [facility] Advance Directives * Full Code (Latest Code Status on File) Date Activated Date Inactivated Comments 09/23/2021 2:39 PM 09/26/2021 4:31 PM Care Teams Resident Athletic Trainer Relationship Specialty Start Date End Date Homer Reveles MD [address] [facility] [address] [facility] [address] [place] [address] PCP - General Internal Medicine 09/23/21
--- OUTSIDE RECORDS SUMMARY | 2024-11-26 09:53 | XMS_ITS | Encounter Summary ---
Author Organization [facility] Address [address] [place] [address] Care Team Providers Care Signwriter Name Role Phone Ashwini Ramos MD Primary Care Provider [phone] Encounter Details Date Type Department Care Team (Latest Contact Info) Description 10/16/2008 Outpatient Historical [facility] Elizabeth Avila MD [address] [place] [address] Other Screening Mammogram Social History Tobacco Use Types Packs/Day Years Used Date Smoking Tobacco: Never Alcohol Use Standard Drinks/Week Comments Yes 0 (1 standard drink = 0.6 oz pur e alcohol) rarely Comments No Sex and Gender Information Value Date Recorded Sex Assigned at Not on file Legal Sex Female 4:52 AM 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 [address] [place] [address] IMAGING SERVICES Ordering Prov: ELIZABETH BRAGA Accession Number: [id number] Interpretation BILATERAL FULL FIELD DIGITAL SCREENING MAMMOGRAM [...] AMK Procedure Note Kezia Anguiano - 10/17/[address] [place] [address] Admit Date: 10/16/2008 MERARI RUIZ Gloria Sex: F Admit Prov: ELIZABETH BRAGA Date: 1945 Primary Care Prov: ELIZABETH BRAGA CMRN: [id number] [id number] IMAGING SERVICES Ordering Prov: ELIZABETH BRAGA Interpretation [...] mammogram documented in this encounter Care Teams Signwriter Relationship Specialty Start Date End Date Ashwini Ramos MD [address] [place] [address] PCP - General Internal Medicine 12/04/15 DME 12/29/16 documented as of this encounter
--- OUTSIDE RECORDS SUMMARY | 2024-11-26 09:53 | XMS_ITS | Referral Summary ---
Author Organization [facility] Virtual Care Address [address] [place] [address] Phone Care Team Providers Care Short Haul Driver Name Role Phone Homer Reveles MD Primary Care Provider [phone] Homer Reveles MD Unavailable [phone] Allergies Active Allergy Reactions Criticality Noted Date [...] 02/12/2021 Mixed hyperlipidemia 02/12/2021 Current use of skilled nursing anticoagulation 021 Other specified hypothyroidism 02/12/2021 Interstitial lung disease Social History Tobacco Use Types Packs/Day Years Used Date Smoking Tobacco: Never Smokeless Tobacco: Former Tobacco Cessation:Counseling Given: Not Answered Comments Unknown Sex and Gender Information Value Date Recorded Sex Assigned at Not on file Legal Sex Female 7:10 PM PROCESS IMPROVEMENT ENGINEER Gender Identity Not on file Sexual Orientation Not on file Last Filed Vital Signs Vital Sign Reading Time Taken Comments Blood Pressure 120/70 04/30/2024 10:01 AM PROCESS IMPROVEMENT ENGINEER Pulse 86 04/30/2024 10:01 AM PROCESS IMPROVEMENT ENGINEER Temperature 36.8 C (98.2 F) 01/29/2022 10:05 AM CDT Respiratory Rate 18 01/29/2022 10:05 AM CDT Oxygen Saturation 99% 04/30/2024 10:01 AM PROCESS IMPROVEMENT ENGINEER Inhaled Oxygen Concentration - - Weight 72.8 kg (160 lb 8 oz) 04/30/2024 10:01 AM PROCESS IMPROVEMENT ENGINEER Height 152.4 cm (5') 04/30/2024 10:01 AM PROCESS IMPROVEMENT ENGINEER Body Mass Index 31.35 04/30/2024 10:01 AM PROCESS IMPROVEMENT ENGINEER Plan of Treatment Not on file Insurance MEDICARE MEDICARE [facility] MEDICARE BLUE CROSS MEDICARE SUPPLEMENT Care Teams Short Haul Driver Relationship Specialty Start Date End Date Homer Reveles MD [address] [place] [address] PCP - General Internal Medicine 06/04/21 Homer Reveles MD [address] [place] [address] Internal Medicine 06/04/21
--- OUTSIDE RECORDS SUMMARY | 2024-11-26 09:53 | XMS_ITS | Encounter Summary ---
Author Organization [facility] Address [address] [place] [address] Care Team Providers Care Salon/Spa Manager Name Role Phone Ashwini Ramos MD Primary Care Provider [phone] Encounter Details Date Type Department Care Team (Late st Contact Info) Description 04/24/1998 Outpatient Historical [facility] Internal Medicine Medical [place] A [address] [facility] [address] [address] Wellington Melara MD [address] [place] [address] Social History Tobacco Use Types Packs/Day Years Used Date Smoking Tobacco: Never Assessed Comments Unknown Sex and Gender Information Value Date Recorded Sex Assigned at Not on file Legal Sex Female 4:52 AM GAME BIRD FARMER Gender Identity Not on file Sexual Orientation Not on file documented as of this encounter Plan of Treatment Not on file documented as of this encounter Visit Diagnoses Not on filedocumented in this encounter Care Teams Salon/Spa Manager Relationship Specialty Start Date End Date Ashwini Ramos MD [address] [facility] [address] [place] [address] PCP - General Internal Medicine 12/04/15 DME 12/29/16 documented as of this encounter
--- OUTSIDE RECORDS SUMMARY | 2024-11-26 09:53 | XMS_ITS | Encounter Summary ---
Author Organization [facility] Address [address] [place] [address] Care Team Providers Care Water Vessel Captain Name Role Phone Ashwini Ramos MD Primary Care Provider [phone] Encounter Details Date Type Department Care Team (Late st Contact Info) Description 12/21/2005 Outpatient Historical [facility] Internal Medicine Medical [place] [facility] [address] [facility] [address] [address] Gloria Espino MD [facility] [address] [place] [address] Social History Tobacco Use Types Packs/Day Years Used Date Smoking Tobacco: Never Assessed Comments Unknown Sex and Gender Information Value Date Recorded Sex Assigned at Not on file Legal Sex Female 4:52 AM TRANSMISSION REBUILDER Gender Identity Not on file Sexual Orientation [...] on filedocumented in this encounter Care Teams Water Vessel Captain Relationship Specialty Start Date End Date Ashwini Ramos MD [address] [place] [address] PCP - General Internal Medicine 12/04/15 DME 12/29/16 documented as of this encounter
--- OUTSIDE RECORDS SUMMARY | 2024-11-26 09:53 | XMS_ITS | Encounter Summary ---
Author Organization [facility] Address [address] [place] [address] Care Team Providers Care Admitting Manager Name Role Phone Ashwini Ramos MD Primary Care Provider [phone] Encounter Details Date Type Department Care Team (Late st Contact Info) Description 04/21/2004 Outpatient Historical [facility] Internal Medicine Medical [place] [facility] [address] [facility] [address] [address] Wellington Melara MD [address] [place] [address] Social History Tobacco Use Types Packs/Day Years Used Date Smoking Tobacco: Never Assessed Comments Unknown Sex and Gender Information Value Date Recorded Sex Assigned at Not on file Legal Sex Female 4:52 AM DISPUTE RESOLUTION SPECIALIST Gender Identity Not on file Sexual Orientation Not on file documented as of this encounter Plan of Treatment Not on file documented as of this encounter Visit Diagnoses Not on filedocumented in this encounter Care Teams Admitting Manager Relationship Specialty Start Date End Date Ashwini Ramos MD [address] [facility] [address] [place] [address] PCP - General Internal Medicine 12/04/15 DME 12/29/16 documented as of this encounter
--- OUTSIDE RECORDS SUMMARY | 2024-11-26 09:54 | XMS_ITS | Encounter Summary ---
Author Organization [facility] Address [address] [place] [address] Care Team Providers Care Group Segment Consultant Name Role Phone Ashwini Ramos MD Primary Care Provider [phone] Encounter Details Date Type Department Care Team (Late st Contact Info) Description 07/17/2007 Orders Only [facility] Internal Medicine Medical [place] [facility] [address] [facility] [address] [address] Kyle Salinas MD [address] [id number] Social History Tobacco Use Types Packs/Day Years Used Date Smoking Tobacco: Never Assessed Comments Unknown Sex and Gender Information Value Date Recorded Sex Assigned at Not on file Legal Sex Female 4:52 AM TRAFFIC COORDINATOR Gender Identity Not on file Sexual Orientation Not on file documented as of this encounter Plan of Treatment Not on file documented as of this encounter Visit Diagnoses Not on filedocumented in this encounter Care Teams Group Segment Consultant Relationship Specialty Start Date End Date Ashwini Ramos MD [address] [facility] [address] [place] [address] PCP - General Internal Medicine 12/04/15 DME 12/29/16 documented as of this encounter
--- OUTSIDE RECORDS SUMMARY | 2024-11-26 09:54 | XMS_ITS | Clinical Summary ---
Author Organization [facility] Address [address] [place] [address] Phone Care Team Providers Care Monument Setter Helper Name Role Phone Ashwini Ramos MD Primary Care Provider [phone] Allergies Active Allergy Reactions Criticality Noted Date Comments Amoxicillin Swelling Low Nickel Other (See Comments) 11/06/2014 Cheap jewelry; causes black to skin & soreness to earlobes Zzscmtg-Rty-Mtb Reductase Inhibitors Muscle Pain Low 12/14/2018 Medications [...] 9 Active fluticasone propionate (FLONASE) 50 mcg/spray Harvey, Suspension nasal inhaler Administer 2 Sprays in [...] ipratropium bromide (ATROVENT) 42 mcg (0.06 %) Harvey, Non-AerosolIndic ations:Rhinorrhe a Administer 2 Sprays in [...] 2 years, bone density improved and stopped. [id number] Resolved Problems Problem Noted Date Diagnosed Date [...] week 04/28/2020 How often [facility]? More than 4 times per year 04/28/2020 Do you belong to any clubs o r organizations such as congregational groups, unions, fraternal or athletic groups, or [...] file Legal Sex Female 4:52 AM MANAGER ADMINISTRATION Gender Identity Not on file Sexual Orientation Not on file Occupation Industry Job Start Date Job End Date 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 Not on file Not on file Not on file Not on file Not on file Not on file Not on file Last Filed Vital Signs Vital Sign Reading Time Taken Comments Blood Pressure 128/60 04/28/2020 9:19 AM MANAGER ADMINISTRATION Pulse 87 04/28/2020 9:19 AM MANAGER ADMINISTRATION Temperature 36.8 C (98.3 F) 02/14/2019 11:29 AM CDT Respiratory Rate 16 04/28/2020 9:19 AM MANAGER ADMINISTRATION Oxygen Saturation 99% 04/28/2020 9:19 AM MANAGER ADMINISTRATION Inhaled Oxygen Concentration - - Weight 78.5 kg (173 lb) 05/23/2020 10:18 AM MANAGER ADMINISTRATION Height 160 cm (5' 2.99) 05/23/2020 10:18 AM MANAGER ADMINISTRATION Body Mass Index 30.65 05/23/2020 10:18 AM MANAGER ADMINISTRATION Plan of Treatment Health Maintenance Due Date Last Done Comments DTAP/TDAP/TD VACCINES (1 - Tdap) 04/22/2004 04/21/20 04 ZOSTER VACCINE (2 of 3) 01/26/2011 12/01/2010 RSV VACCINE (60+ or ) (1 - 1-dose 75+ series) 2020 Traditional Medicare (ACO) A nnual Wellness Visit 04/29/2021 04/28/2020, 02/14/2019, 02/07/2018, Additional history exists OSTEOPOROSIS SCREENING 05/19/2022 1, 05/19/2020, 05/19/2020, Additional history exists INFLUENZA VACCINE (#1) 2024 0, 02/14/2019, 01/29/2014, Additional history exists PNEUMOCOCCAL VACCINE 50+ YEARS Completed 0 10/16/2015, 04/13/2010, 04/13/2010 COLORECTAL SCREENING Discontinued 01/08/2021, 10/02/19 09 Colorectal Cancer Screening Discontinued FIT-DNA Q 3 years Discontinued FIT/FOBT Q 1 year Discontinued Flex Sig/CT Colonography Q 5 years Discontinued Medical Devices Implanted Type Area Clinical Pharmacy Technician Device Identifier Shelf Expiration Date Model / Serial / Lot Biomet Bone Cement Implanted:Qt y: 2 on 07/20/2018 by Wellington Hsu MD at [facility] Cement Right: Knee [employer] [id number] 12/13/2022 [id number] / / [id number] Description:requisition # [id number]. Shell G7 Pps Lmtd Hl 54mm [id number] - [id number] Implanted:Qt y: 1 on 12/19/2014 by Wellington Hsu MD at [facility] Hip Left: Hip [employer] 10/13/2024 [id number] / / [id number] Description:PROCESSED ON REQ UISITION,[id number]. Liner Arcomxl Neut 40mm Szf [id number] - [id number] Implanted:Qt y: 1 on 12/19/2014 by Wellington Hsu MD at [facility] Hip Left: Hip [employer] 11/12/2018 [id number] / / [id number] Stem Fem Echo Bimetric Por Nc [id number] - [id number] Implanted:Qt y: 1 on 12/19/2014 by Wellington Hsu MD at [facility] Hip Left: Hip [employer] 11/14/2024 [id number] / / [id number] Slv Biolox Delta Optn Type 1 [id number] - [id number] Implanted:Qt y: 1 on 12/19/2014 by Wellington Hsu MD at [facility] Hip Left: Hip [employer] 03/15/2023 [id number] / / [id number] Head Fem Biolox Option 40mm 650-1058 - [id number] Implanted:Qt y: 1 on 12/19/2014 by Wellington Hsu MD at [facility] Hip Left: Hip [employer] 12/13/2024 650-1058 / / [id number] Shell G7 Pps Lmtd Hl 54mm [id number] - [id number] Implanted:Qt y: 1 on 09/05/2017 by Wellington Hsu MD at [facility] Hip Right: Acetabulum [employer] [id number] 08/12/2027 [id number] / / [id number] Description:REQUISITION # [id number] Liner Arcomxl Neut 36mm Szf [id number] - [id number] Implanted:Qt y: 1 on 09/05/2017 by Wellington Hsu MD at [facility] Hip Right: Acetabulum [employer] [id number] 07/17/2022 [id number] / / [id number] Stem Fem Echo Bimetric Por Nc [id number] - [id number] Implanted:Qt y: 1 on 09/05/2017 by Wellington Hsu MD at [facility] Hip Right: Hip [employer] 05/30/2027 [id number] / / [id number] Head Fem Mod Cer Biolox 36mm [id number] - [id number] Implanted:Qt y: 1 on 09/05/2017 by Wellington Hsu MD at [facility] Hip Right: Hip [employer] 01/26/2027 [id number] / / [id number] Patella 3peg Series A [id number] - [id number] Implanted:Qt y: 1 on 07/20/2018 by Wellington Hsu MD at [facility] Knee Right: Knee [employer] 06/12/2023 [id number] / / [id number] Comp Tib Intrlk Prim 75mm [id number] - [id number] Implanted:Qt y: 1 on 07/20/2018 by Wellington Hsu MD at [facility] Knee Right: Knee [employer] 09/27/2027 [id number] / / [id number] Stem Tib Prim Finned 40mm [id number] - [id number] Implanted:Qt y: 1 on 07/20/2018 by Wellington Hsu MD at [facility] Knee Right: Knee [employer] 06/24/2028 [id number] / / [id number] Comp Fem Vngrd Ti 65mm [id number] - [id number] Implanted:Qt y: 1 on 07/20/2018 by Wellington Hsu MD at [facility] Knee Right: Knee [employer] 06/19/2028 [id number] / / [id number] Brg Tib Vngrd Ant Stblzd [id number] - [id number] Implanted:Qt y: 1 on 07/20/2018 by Wellington Hus MD at [facility] Knee Right: Knee [employer] 05/30/2023 [id number] / / [id number] Screw G7 Lp 6.5x25mm [id number] - [id number] Implanted:Qt y: 1 on 12/19/2014 by Wellington Hsu MD at [facility] Screw Left: Hip [employer] 06/15/2024 [id number] / / [id number] Screw G7 Lp 6.5x25mm [id number] - [id number] Implanted:Qt y: 1 on 09/05/2017 by Wellington Hsu MD at [facility] Screw Right: Acetabulum [employer] [id number] 06/21/2027 [id number] / / [id number] Procedures Procedure Name Priority Date/Time Associated Diagnosis Comments XR DEXA BONE DENSITY AXIAL 1 OR MORE SITES Routine 05/19/2020 1:12 PM MANAGER ADMINISTRATION Osteopenia, unspecified location Medicare annual wellness visit, subsequent Post-menopausal from Last 3 Months or Most Recently Relevant to Health Maintenance Results * XR DEXA BONE DENSITY AXIAL 1 OR MORE SITES (05/19/2020 1:12 PM MANAGER ADMINISTRATION) Anatomical Region Laterality Modality Digital Radiogra phy 05/19/2020 1:12 PM MANAGER ADMINISTRATION Narrative 05/19/2020 2:57 PM MANAGER ADMINISTRATION XR DEXA BONE DENSITY AXIAL 1 OR MORE SITES DATE: 05/19/2020 1:12 PM HISTORY: 75 years old Female with post menopausal symptoms. PROCEDURE: Planar images of the lumbar spine, forearm using a Peer.im DEXA scanner for bone mineral density determination [...] Sherman DO DICTATION LOCATION: Location 1 - [facility] Procedure Note Aki Sherman DO - 05/19/2020 XR DEXA BONE DENSITY AXIAL 1 OR MORE SITES DATE: 05/19/2020 1:12 PM HISTORY: 75 years old Female with post menopausal symptoms. PROCEDURE: Planar images of the lumbar spine, forearm using a Peer.im DEXA scanner for bone mineral density determination [...] Dr. Aki Sherman, DO DICTATION LOCATION: Location [address] [place] [address] Jahaira Sims SURPLUS PROPERTY DISPOSAL AGENT DIAGNOSTIC IMAGING NICA PEREZ Final Result from Last 3 Months or Most Recently Relevant to Health Maintenance Insurance MEDICARE PART A AND B [employer] MEDICARE SUPP AESSI RX Hansen [employer] Son Medicare Part D RX PlanGrid Medicare Part B Advance Directives For more information, please contact: [phone] * Full Code (Latest Code Status on [...] 9:59 AM 09/05/2017 3:37 PM Care Teams Monument Setter Helper Relationship Specialty Start Date End Date Ashwini Ramos MD [address] [place] [phone] PCP - General Internal Medicine 12/04/15 DME 12/29/16
--- OUTSIDE RECORDS SUMMARY | 2024-11-26 09:54 | XMS_ITS | Encounter Summary ---
Author Organization [facility] Address [address] [place] [address] Care Team Providers Care Dredge Runner Name Role Phone Ashwini Ramos MD Primary Care Provider [phone] Encounter Details Date Type Department Care Team (Late st Contact Info) Description 03/03/2007 Outpatient Historical [facility] Internal Medicine Medical [place] [facility] [address] [facility] [address] [address] Kyle Salinas MD [address] [id number] Social History Tobacco Use Types Packs/Day Years Used Date Smoking Tobacco: Never Assessed Comments Unknown Sex and Gender Information Value Date Recorded Sex Assigned at Not on file Legal Sex Female 4:52 AM ENGRAVER Gender Identity Not on file Sexual Orientation Not on file documented as of this encounter Plan of Treatment Not on file documented as of this encounter Visit Diagnoses Not on filedocumented in this encounter Care Teams Dredge Runner Relationship Specialty Start Date End Date Ashwini Ramos MD [address] [facility] [address] [place] [address] PCP - General Internal Medicine 12/04/15 DME 12/29/16 documented as of this encounter
--- OUTSIDE RECORDS SUMMARY | 2024-11-26 09:54 | XMS_ITS | Encounter Summary ---
Author Organization [facility] Address [address] [place] [address] Care Team Providers Care Siding Installer Name Role Phone Ashwini Ramos MD Primary Care Provider [phone] Encounter Details Date Type Department Care Team (Late st Contact Info) Description 10/14/[address] 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
--- OUTSIDE RECORDS SUMMARY | 2024-11-26 09:54 | XMS_ITS | Encounter Summary ---
Author Organization [facility] Address [address] [place] [address] Care Team Providers Care Art History Professor Name Role Phone Ashwini Ramos MD Primary Care Provider [phone] Encounter Details Date Type Department Care Team [...] on file Legal Sex Female 4:52 AM INDUSTRIAL MAINTENANCE REPAIRER HELPER Gender Identity Not on file Sexual Orientation Not on file Occupation Industry Job Start Date Job End Date 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 Not on file Not on file Not on file documented as of this encounter Plan of Treatment Not on file documented as of this encounter Visit Diagnoses Not on filedocumented in this encounter Care Teams Art History Professor Relationship Specialty Start Date End Date Ashwini Ramos MD [address] [place] [phone] PCP - General Internal Medicine 12/04/15 DME 12/29/16 documented as of this encounter
--- OUTSIDE RECORDS SUMMARY | 2024-11-26 09:54 | XMS_ITS | Encounter Summary ---
Author Organization [facility] Address [address] [place] [address] Care Team Providers Care Roll Table Operator Name Role Phone Ashwini Ramos MD Primary Care Provider [phone] Encounter Details Date Type Department Care Team (Late st Contact Info) Description 03/03/2007 Orders Only [facility] Internal Medicine Medical [place] [facility] [address] [facility] [address] [address] Kyle Salinas MD [address] [facility] [address] [place] [address] Social History Tobacco Use Types Packs/Day Years Used Date Smoking Tobacco: Never Assessed Comments Unknown Sex and Gender Information Value Date Recorded Sex Assigned at Not on file Legal Sex Female 4:52 AM SEED BUYER Gender Identity Not on file Sexual Orientation [...] TSH with reflex LAB ORDERS: Order number: [id number] Test Ordered: TSH (REFLEX FREE T4/FREE T3) [...] one tablet b.i.d. LAB ORDERS: Order number: [id number] Test Ordered: XRAY TIBIA FIBULA LEFT Order number: [id number] Test Ordered: XRAY TIBIA FIBULA RIGHT 780.57-SLEEP APNEA ASSESSMENT: Improving compliance with CPAP RECOMMENDATIONS: Strongly encouraged patient utilize her CPAP on a nightly basis. 272.4-HYPERLIPIDEMIA ASSESSMENT: due for reassessment RECOMMENDATIONS: as below LAB ORDERS: Order number: [id number] Test Ordered: LIPID PANEL 1078 Order number: [id number] Test Ordered: COMPREHENSIVE METABOLIC PANEL & GFR 1112 V04.81-NEED FOR VACCINE INFLUENZA LAB ORDERS: Order number: [id number] Test Ordered: IMMUNIZATION ADMIN SINGLE 82090 Order number: [id number] Test Ordered: INJ-INFLUENZA ADULT 71582 719.46-PAIN JOINT KNEE LAB ORDERS: Order number: [id number] Test Ordered: XRAY KNEE (PATELLA) LEFT (4 [...] on filedocumented in this encounter Care Teams Roll Table Operator Relationship Specialty Start Date End Date Ashwini Ramos MD [address] [place] [phone] PCP - General Internal Medicine 12/04/15 DME 12/29/16 documented as of this encounter
--- OUTSIDE RECORDS SUMMARY | 2024-11-26 09:54 | XMS_ITS | Encounter Summary ---
Author Organization [facility] Address [address] [place] [address] Care Team Providers Care Test Lab Technician Name Role Phone Ashwini Ramos MD Primary Care Provider [phone] Encounter Details Date Type Department Care Team (Late st Contact Info) Description 04/21/2007 Outpatient Historical [facility] Kyle Salinas MD [address] [address] Osteoarth NOS-Unspec Social History Tobacco Use Types Packs/Day Years Used Date Smoking Tobacco: Never Assessed Comments Unknown Sex and Gender Information Value Date Recorded Sex Assigned at Not on file Legal Sex Female 4:52 AM INTERCHANGE AGENT Gender Identity Not on file Sexual Orientation Not on file documented as of this encounter Plan of Treatment Not on file documented as of this encounter Visit Diagnoses Diagnosis Osteoarthrosis, unspecified whether generalized or localized, unspecified site documented in this encounter Care Teams Test Lab Technician Relationship Specialty Start Date End Date Ashwini Ramos MD [address] [place] [address] [address] [place] [address] PCP - General Internal Medicine 12/04/15 DME 12/29/16 documented as of this encounter
--- OUTSIDE RECORDS SUMMARY | 2024-11-26 09:54 | XMS_ITS | Encounter Summary ---
Author Organization [facility] Address [address] [place] [address] Care Team Providers Care Rotary Veneer Machine Operator Name Role Phone Ashwini Ramos MD Primary Care Provider [phone] Encounter Details Date Type Department Care Team (Late st Contact Info) Description 03/03/2007 Outpatient Historical [facility] Internal Medicine Medical [place] [facility] [address] [facility] [address] [address] Kyle Salinas MD [address] [phone] Social History Tobacco Use Types Packs/Day Years Used Date Smoking Tobacco: Never Assessed Comments Unknown Sex and Gender Information Value Date Recorded Sex Assigned at Not on file Legal Sex Female 4:52 AM MEAT SCRUBBER Gender Identity Not on file Sexual Orientation Not on file documented as of this encounter Plan of Treatment Not on file documented as of this encounter Visit Diagnoses Not on filedocumented in this encounter Care Teams Rotary Veneer Machine Operator Relationship Specialty Start Date End Date Ashwini Ramos MD [address] [facility] [address] [place] [address] PCP - General Internal Medicine 12/04/15 DME 12/29/16 documented as of this encounter
--- OUTSIDE RECORDS SUMMARY | 2024-11-26 09:54 | XMS_ITS | Encounter Summary ---
Author Organization [facility] Address [address] [place] [address] Care Team Providers Care Associate Java Developer Name Role Phone Ashwini Ramos MD Primary Care Provider [phone] Encounter Details Date Type Department Care Team (Late st Contact Info) Description 10/14/2006 Outpatient Historical [facility] Internal Medicine Medical [place] [facility] [address] [facility] [address] [address] Kyle Salinas MD [address] [facility] [address] [place] [address] Social History Tobacco Use Types Packs/Day Years Used Date Smoking Tobacco: Never Assessed Comments Unknown Sex and Gender Information Value Date Recorded Sex Assigned at Not on file Legal Sex Female 4:52 AM TEXTILE CONVERTER Gender Identity Not on file Sexual Orientation [...] on filedocumented in this encounter Care Teams Associate Java Developer Relationship Specialty Start Date End Date Ashwini Ramos MD [address] [place] [phone] PCP - General Internal Medicine 12/04/15 DME 12/29/16 documented as of this encounter
--- OUTSIDE RECORDS SUMMARY | 2024-11-26 09:54 | XMS_ITS | Encounter Summary ---
Author Organization [facility] Address [address] [place] [address] Care Team Providers Care Aerosol Supervisor Name Role Phone Ashwini Ramos MD Primary Care Provider [phone] Encounter Details Date Type Department Care Team (Latest Contact Info) Description 05/15/2007 Outpatient Historical [facility] [place] [place] [address] [place] [address] Other Screening Mammogram Social History Tobacco Use Types Packs/Day Years Used Date Smoking Tobacco: Never Assessed Comments Unknown Sex and Gender Information Value Date Recorded Sex Assigned at Not on file Legal Sex Female 4:52 AM CERTIFIED PROFESSIONAL CODER Gender Identity Not on file Sexual Orientation Not on file documented as of this encounter Plan of Treatment Not on file documented as of this encounter Visit Diagnoses Diagnosis Other screening mammogram documented in this encounter Care Teams Aerosol Supervisor Relationship Specialty Start Date End Date Ashwini Ramos MD [address] [place] [phone] PCP - General Internal Medicine 12/04/15 DME 12/29/16 documented as of this encounter
--- OUTSIDE RECORDS SUMMARY | 2024-11-26 09:54 | XMS_ITS | Encounter Summary ---
Author Organization [facility] Address [address] [place] [address] Care Team Providers Care French Professor Name Role Phone Ashwini Ramos MD Primary Care Provider [phone] Encounter Details Date Type Department Care Team (Late st Contact Info) Description 03/13/2007 Orders Only [facility] Internal Medicine Medical [place] [facility] [address] [facility] [address] [address] Kyle Salinas MD [address] [phone] Social History Tobacco Use Types Packs/Day Years Used Date Smoking Tobacco: Never Assessed Comments Unknown Sex and Gender Information Value Date Recorded Sex Assigned at Not on file Legal Sex Female 4:52 AM 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 [facility] [address] [place] [address] PCP - General Internal Medicine 12/04/15 DME 12/29/16 documented as of this encounter
[2024-11-26 10:11] LABS: Estimated Glomerular Filt Rate 40
== END 2024-11-26 09:49 | disposition home or self-care (01) ==
PROVIDERS: PCP Internal Medicine; Visit Provider Internal Medicine
DX: J84.9 Interstitial pulmonary disease, unspecified (principal); M32.13 Lung involvement in systemic lupus erythematosus; R91.8 Other nonspecific abnormal finding of lung field
CPT/HCPCS: 71260; Q9967

== ENCOUNTER 2024-12-14 11:30 | Outpatient (CLI) | payer MEDICARE, SELFPAY ==
--- NOTE | ~2024-12-14 | XR_ITS ---
HISTORY: M25.562 - Pain in left knee COMPARISON: 03/08/2007 TECHNIQUE: 4 views of the left knee were performed FINDINGS: No acute or subacute fracture. Diffuse bony demineralization is identified. Medial and lateral tibiofemoral joint space narrowing with sclerosis is identified (medial greater th an lateral). Small suprapatellar joint effusion is identified. The infrapatellar joint space is clear. Ossification of the insertion of the quadriceps tendon is identified. Superior posterior osteophyte is also noted along the patella. IMPRESSION: Diffuse bony demineralization with significant degenerative disease in a small suprapate llar joint effusion. No acute fracture. Reviewed, dictated and finalized at location A. IMPRESSION: Diffuse bony demineralization with significant degenerative diseas e in a small suprapatellar joint effusion. No acute fracture.
--- OUTSIDE RECORDS SUMMARY | 2024-12-14 11:34 | XMS_ITS | Clinical Summary ---
Author Organization [facility] Virtual Care Address [address] [place] [phone] Phone Care Team Providers Care Centrifugal Station Operator Name Role Phone Homer Reveles MD Primary Care Provider [phone] Homer Reveles MD Unavailable [phone] Allergies Active Allergy Reactions Criticality Noted Date [...] 02/12/2021 Mixed hyperlipidemia 02/12/2021 Current use of termite control servicer anticoagulation 021 Other specified hypothyroidism 02/12/2021 Interstitial [...] on file Legal Sex Female 7:10 PM EX ASSISTANT/PROGRAM DIRECTOR Gender Identity Not on file Sexual Orientation Not on file Obstetrics History Last Filed Vital Signs Vital Sign Reading Time Taken Comments Blood Pressure 120/70 04/30/2024 10:01 AM EX ASSISTANT/PROGRAM DIRECTOR Pulse 86 04/30/2024 10:01 AM EX ASSISTANT/PROGRAM DIRECTOR Temperature 36.8 C (98.2 F) 01/29/2022 10:05 AM CDT Respiratory Rate 18 01/29/2022 10:05 AM CDT Oxygen Saturation 99% 04/30/2024 10:01 AM EX ASSISTANT/PROGRAM DIRECTOR Inhaled Oxygen Concentration - - Weight 72.8 kg (160 lb 8 oz) 04/30/2024 10:01 AM EX ASSISTANT/PROGRAM DIRECTOR Height 152.4 cm (5') 04/30/2024 10:01 AM EX ASSISTANT/PROGRAM DIRECTOR Body Mass Index 31.35 04/30/2024 10:01 AM EX ASSISTANT/PROGRAM DIRECTOR Plan of Treatment Health Maintenance Due Date [...] vaccine 65+ Completed 10/16/2015, 03/17 Insurance MEDICARE [facility] MEDICARE [facility] MEDICARE SUPPLEMENT Care Teams Centrifugal Station Operator Relationship Specialty Start Date End Date Homer Reveles MD [address] [place] [address] PCP - General Internal Medicine 06/04/21 Homer Reveles MD [address] [place] [address] Internal Medicine 06/04/21
--- OUTSIDE RECORDS SUMMARY | 2024-12-14 11:34 | XMS_ITS | Encounter Summary ---
Author Organization [facility] Address [address] [place] [address] Care Team Providers Care Freight Car Inspector Name Role Phone Ashwini Ramos MD Primary Care Provider [phone] Encounter Details Date Type Department Care Team (Late st Contact Info) Description 05/04/2004 Emergency [facility] Blue Iniguez MD NO ADDRESS ON FILE Er, Authorized P NO ADDRESS ON FILE JOINT PAIN-L/LEG (Primary Dx) Social History Tobacco Use Types Packs/Day Years Used Date Smoking Tobacco: Never Assessed Comments Unknown Sex and Gender Information Value Date Recorded Sex Assigned at Not on file Legal Sex Female 4:52 AM PROJECTOR OPERATOR Gender Identity Not on file Sexual Orientation Not on file documented as of this encounter Plan of Treatment Not on file documented as of this encounter Visit Diagnoses Diagnosis Pain in joint, lower leg- Primary documented in this encounter Care Teams Freight Car Inspector Relationship Specialty Start Date End Date Ashwini Ramos MD [address] [place] [phone] PCP - General Internal Medicine 12/04/15 DME 12/29/16 documented as of this encounter
--- OUTSIDE RECORDS SUMMARY | 2024-12-14 11:34 | XMS_ITS | Referral Summary ---
Author Organization [facility] Virtual Care Address [address] [place] [address] Phone Care Team Providers Care Registered Public Surveyor Name Role Phone Homer Reveles MD Primary Care Provider Homer Reveles MD Unavailable [phone] Allergies Active Allergy Reactions Criticality Noted Date [...] 02/12/2021 Mixed hyperlipidemia 02/12/2021 Current use of terminal supervisor anticoagulation 021 Other specified hypothyroidism 02/12/2021 Interstitial lung disease Social History Tobacco Use Types Packs/Day Years Used Date Smoking Tobacco: Never Smokeless Tobacco: Former Tobacco Cessation:Counseling Given: Not Answered Comments Unknown Sex and Gender Information Value Date Recorded Sex Assigned at Not on file Legal Sex Female 7:10 PM VETERANS ADVISER Gender Identity Not on file Sexual Orientation Not on file Last Filed Vital Signs Vital Sign Reading Time Taken Comments Blood Pressure 120/70 04/30/2024 10:01 AM VETERANS ADVISER Pulse 86 04/30/2024 10:01 AM VETERANS ADVISER Temperature 36.8 C (98.2 F) 01/29/2022 10:05 AM CDT Respiratory Rate 18 01/29/2022 10:05 AM CDT Oxygen Saturation 99% 04/30/2024 10:01 AM VETERANS ADVISER Inhaled Oxygen Concentration - - Weight 72.8 kg (160 lb 8 oz) 04/30/2024 10:01 AM VETERANS ADVISER Height 152.4 cm (5') 04/30/2024 10:01 AM VETERANS ADVISER Body Mass Index 31.35 04/30/2024 10:01 AM VETERANS ADVISER Plan of Treatment Not on file Insurance MEDICARE MEDICARE [facility] MEDICARE [employer] MEDICARE SUPPLEMENT Care Teams Registered Public Surveyor Relationship Specialty Start Date End Date Homer Reveles MD [address] [place] [address] PCP - General Internal Medicine 06/04/21 Homer Reveles MD [address] [place] [address] Internal Medicine 06/04/21
--- OUTSIDE RECORDS SUMMARY | 2024-12-14 11:34 | XMS_ITS | Encounter Summary ---
Author Organization [facility] Address [address] [place] [address] Care Team Providers Care Automotive Tire Testing Supervisor Name Role Phone Ashwini Rmaos MD Primary Care Provider [phone] Encounter Details Date Type Department Care Team (Late st Contact Info) Description 12/21/2005 Outpatient Historical [facility] Internal Medicine Medical [place] A [facility] [address] [facility] [address] [address] Gloria Espino MD [facility] [facility] [address] [place] [address] Social History Tobacco Use Types Packs/Day Years Used Date Smoking Tobacco: Never Assessed Comments Unknown Sex and Gender Information Value Date Recorded Sex Assigned at Not on file Legal Sex Female 4:52 AM INSURANCE CLAIMS CLERK Gender Identity Not on file Sexual [...] on filedocumented in this encounter Care Teams Automotive Tire Testing Supervisor Relationship Specialty Start Date End Date Ashwini Ramos MD [address] [place] [address] PCP - General Internal Medicine 12/04/15 DME 12/29/16 documented as of this encounter
--- OUTSIDE RECORDS SUMMARY | 2024-12-14 11:34 | XMS_ITS | Encounter Summary ---
Author Organization [employer] Address [address] [place] [address] Care Team Providers Care Data Communications Analyst Name Role Phone Ashwini Ramos MD Primary Care Provider [phone] Encounter Details Date Type Department Care Team (Latest Contact Info) Description 04/24/2004 Outpatient Historical [facility] Wellington Melara MD [address] [place] [address] JOINT PAIN-L/LEG (Primary Dx) Social History Tobacco Use Types Packs/Day Years Used Date Smoking Tobacco: Never Assessed Comments Unknown Sex and Gender Information Value Date Recorded Sex Assigned at Not on file Legal Sex Female 4:52 AM ACCOUNTS RECEIVABLE ACCOUNTANT Gender Identity Not on file Sexual Orientation Not on file documented as of this encounter Plan of Treatment Not on file documented as of this encounter Visit Diagnoses Diagnosis Pain in joint, lower leg- Primary documented in this encounter Care Teams Data Communications Analyst Relationship Specialty Start Date End Date Ashwini Ramos MD [address] [facility] [facility] [address] [place] [address] PCP - General Internal Medicine 12/04/15 DME 12/29/16 documented as of this encounter
--- OUTSIDE RECORDS SUMMARY | 2024-12-14 11:34 | XMS_ITS | Encounter Summary ---
Author Organization [facility] Address [address] [place] [address] Care Team Providers Care Lan Specialist Name Role Phone Ashwini Ramos MD Primary Care Provider [phone] Encounter Details Date Type Department Care Team (Late st Contact Info) Description 04/21/2004 Outpatient Historical [facility] Internal Medicine Medical [place] A [facility] [address] [facility] [address] [address] Wellington Melara MD [address] [place] [address] Social History Tobacco Use Types Packs/Day Years Used Date Smoking Tobacco: Never Assessed Comments Unknown Sex and Gender Information Value Date Recorded Sex Assigned at Not on file Legal Sex Female 4:52 AM YARDING SUPERVISOR Gender Identity Not on file Sexual Orientation Not on file documented as of this encounter Plan of Treatment Not on file documented as of this encounter Visit Diagnoses Not on filedocumented in this encounter Care Teams Lan Specialist Relationship Specialty Start Date End Date Ashwini Ramos MD [address] [facility] [address] [place] [address] PCP - General Internal Medicine 12/04/15 DME 12/29/16 documented as of this encounter
--- OUTSIDE RECORDS SUMMARY | 2024-12-14 11:34 | XMS_ITS | Encounter Summary ---
Author Organization [employer] Address [address] [place] [address] Care Team Providers Care Child Care Development Specialist Name Role Phone Ashwini Ramos MD Primary Care Provider [phone] Encounter Details Date Type Department Care Team (Late st Contact Info) Description 06/27/2003 Outpatient Historical [facility] Support [facility] (Adt Cardiology-[facility]) [address] [place] [phone] Ham Goodson MD [address] [facility] [address] [place], [place] [id number] Social History Tobacco Use Types Packs/Day Years Used Date Smoking Tobacco: Never Assessed Comments Unknown Sex and Gender Information Value Date Recorded Sex Assigned at Not on file Legal Sex Female 4:52 AM MARKETING SEGMENT MANAGER Gender Identity Not on file Sexual Orientation Not on file documented as of this encounter Plan of Treatment Not on file documented as of this encounter Visit Diagnoses Not on filedocumented in this encounter Care Teams Child Care Development Specialist Relationship Specialty Start Date End Date Ashwini Ramos MD [address] [facility] [address] [place] [address] PCP - General Internal Medicine 12/04/15 DME 12/29/16 documented as of this encounter
--- OUTSIDE RECORDS SUMMARY | 2024-12-14 11:34 | XMS_ITS | Encounter Summary ---
Author Organization [facility] Address [address] [place] [address] Care Team Providers Care Order Department Supervisor Name Role Phone Ashwini Ramos MD Primary Care Provider [phone] Encounter Details Date Type Department Care Team (Late st Contact Info) Description 04/21/2004 Outpatient Historical [facility] Internal Medicine Medical [place] A [facility] [address] [facility] [address] [address] Wellington Melara MD [address] [place] [address] Social History Tobacco Use Types Packs/Day Years Used Date Smoking Tobacco: Never Assessed Comments Unknown Sex and Gender Information Value Date Recorded Sex Assigned at Not on file Legal Sex Female 4:52 AM JUNIOR HIGH SCHOOL 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 [facility] [address] [place] [address] PCP - General Internal Medicine 12/04/15 DME 12/29/16 documented as of this encounter
--- OUTSIDE RECORDS SUMMARY | 2024-12-14 11:34 | XMS_ITS | Encounter Summary ---
Author Organization [facility] Address [address] [place] [address] Care Team Providers Care Hotel Yardperson Name Role Phone Ashwini Ramos MD Primary Care Provider [phone] Encounter Details Date Type Department Care Team (Late st Contact Info) Description 02/16/2005 Outpatient Historical [facility] Internal Medicine Medical [place] A [facility] [address] [facility] [address] [address] Kyle Salinas MD [address] [facility] [address] [place] [address] Social History Tobacco Use Types Packs/Day Years Used Date Smoking Tobacco: Never Assessed Comments Unknown Sex and Gender Information Value Date Recorded Sex Assigned at Not on file Legal Sex Female 4:52 AM BOAT ENGINE MECHANIC Gender Identity Not on file Sexual Orientation [...] on filedocumented in this encounter Care Teams Hotel Yardperson Relationship Specialty Start Date End Date Ashwini Ramos MD [address] [place] [address] PCP - General Internal Medicine 12/04/15 DME 12/29/16 documented as of this encounter
--- OUTSIDE RECORDS SUMMARY | 2024-12-14 11:34 | XMS_ITS | Encounter Summary ---
Author Organization [facility] Healthcare Address [address] [place] [address] Care Team Providers Care Cook Helper Fruit Name Role Phone Homer Reveles MD Primary Care Provider [phone] Homer Reveles MD Unavailable [phone] Encounter Details Date Type Department Care Team (Late st Contact Info) Description 05/25/[address] [facility] Health Information Management [address] [place] [address] Scanning, Provider Social History Tobacco Use Types Packs/Day Years Used Date Smoking Tobacco: Never Smokeless Tobacco: Former Comments Unknown Sex and Gender Information Value Date Recorded Sex Assigned at Not on file Legal Sex Female 7:10 PM LABEL PRINTER Gender Identity Not on file Sexual Orientation Not on file documented as of this encounter Plan of Treatment Not on file documented as of this encounter Procedures Procedure Name Priority Date/Time Associated Diagnosis Comments PULMONARY - RESULT SCAN 10/27/2023 documented in this encounter Results * PULMONARY - RESULT SCAN (10/27/2023) Anatomical Region Laterality Modality Other us Provider Scanning Edited Result - Final documented in this encounter Visit Diagnoses Not on filedocumented in this encounter Care Teams Cook Helper Fruit Relationship Specialty Start Date End Date Homer Reveles MD [address] [place] [address] PCP - General Internal Medicine 06/04/21 Homer Reveles MD [address] [facility] [address] [place] [address] Internal Medicine 06/04/21 documented as of this encounter
--- OUTSIDE RECORDS SUMMARY | 2024-12-14 11:35 | XMS_ITS | Encounter Summary ---
Author Organization [facility] Address [address] [place] [address] Care Team Providers Care Supervisor Stone Name Role Phone Ashwini Ramos MD Primary Care Provider [phone] Encounter Details Date Type Department Care Team (Late st Contact Info) Description 09/07/2000 Outpatient Historical [facility] Internal Medicine Medical [place] A [facility] [address] [facility] [address] [address] Wellington Melara MD [address] [place] [address] Social History Tobacco Use Types Packs/Day Years Used Date Smoking Tobacco: Never Assessed Comments Unknown Sex and Gender Information Value Date Recorded Sex Assigned at Not on file Legal Sex Female 4:52 AM SENIOR 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 [facility] [address] [place] [address] PCP - General Internal Medicine 12/04/15 DME 12/29/16 documented as of this encounter
--- OUTSIDE RECORDS SUMMARY | 2024-12-14 11:35 | XMS_ITS | Clinical Summary ---
Author Organization [facility] Address [address] [facility] [place] [address] Care Team Providers Care Large Animal Husbandry Technician Name Role Phone Homer Reveles MD Primary Care Provider [phone] Source Comments [facility],non-owned Affiliates and Associated Physician Practices is amultiple site organization consisting of ambulatory clinics and hospital sitesin [place], [place], [place] and [place]. This disclosure is being madepursuant to the Care Everywhere program and may not contain all information available regarding this patient. Last updated 18.[facility] [employer] Allergies Active Allergy Reactions Criticality Noted Date [...] 76.7 kg (169 lb) 06/16/2022 9:55 AM GOLF CART ATTENDANT Height 160 cm (5' 3) 06/16/2022 9:55 AM GOLF CART ATTENDANT Body Mass Index 29.94 06/16/2022 9:55 AM GOLF CART ATTENDANT Plan of Treatment Health Maintenance Due Date [...] this topic Medical Devices Implanted Type Area Turbine Mechanic Device Identifier Shelf Expiration Date Model / Serial / Lot Screw 2.7mm 14mm T15 Lck Lopro Slf-Tap Implanted:Qty: 1 on 09/23/2021 by Jhonatan Palma MD at [facility] Left: Ankle [employer] 4 / / Screw 3.5mm 14mm Ft Slf-Tap Lopro Head Implanted:Qty: 1 on 09/23/2021 by Jhonatan Palma MD at [facility] [employer] 4 / / Screw 3.5mm 16mm Ft Slf-Tap Hex Lopro Implanted:Qty: 1 on 09/23/2021 by Jhonatan Palma MD at [facility] [employer] 6 / / Screw 3.5mm 48mm Ft Slf-Tap Hex Lopro Implanted:Qty: 1 on 09/23/2021 by Jhonatan Palma MD at [facility] [employer] 8 / / Plate 6 Hl Lck Lopro Fib Lt Dist 139mm Implanted:Qty: 1 on 09/23/2021 by Jhonatan Palma MD at [facility] Left: Ankle [employer] 6 / / Screw 2.7mm 16mm T15 Lck Lopro Slf-Tap Implanted:Qty: 3 on 09/23/2021 by Jhonatan Palma MD at [facility] Left: Ankle [employer] 6 / / Screw 2.7mm 18mm T15 Lck Lopro Slf-Tap Implanted:Qty: 1 on 09/23/2021 by Jhonatan Palma MD at [facility] Left: Ankle [employer] 8 / / Screw 3.5mm 50mm Lopro Can Nonster Bone Implanted:Qty: 1 on 09/23/2021 by Jhonatan Palma MD at [facility] Left: Ankle [employer] 0 / / Screw 4mm 40mm Ft Neelima Std Head Canc Tmx Implanted:Qty: 1 on 09/23/2021 by Jhonatan Palma MD at [facility] Left: Ankle [employer] [id number] / / Screw 2.7mm 30mm Ft Nonlock Hex Drv Elb Implanted:Qty: 1 on 09/23/2021 by Jhonatan Palma MD at [facility] [employer] 0 / / Explanted Type Area Turbine Mechanic Device Identifier Shelf Expiration Date Model / Serial / Lot Screw 3.5mm 12mm Ft Slf-Tap Hex Lopro Explanted:Qty: 1 on 09/23/2021 by Jhonatan Palma MD at [facility] [employer] 8150-37-012 / / Screw 3.5mm 14mm Ft Slf-Tap Lopro Head Explanted:Qty: 1 on 09/23/2021 by Jhonatan Palma MD at [facility] [employer] 8150-37-014 / / Wire K 1.6mm 6in Hlf Bynt Pnt Ss Fx Explanted:Qty: 2 on 09/23/2021 by Jhonatan Palma MD at [facility] [employer] [id number] / / Screw 2.7mm 14mm T15 Lck Lopro Slf-Tap Explanted:Qty: 1 on 09/23/2021 by Jhonatan Palma MD at [facility] Left: Ankle [employer] [id number] / / Screw 4mm 42mm Ft Neelima Std Head Canc Tmx Explanted:Qty: 1 on 09/23/2021 by Jhonatan Palma MD at [facility] Left: Ankle [employer] [id number] / / Insurance [facility] Address: [id number] [place] [address] MEDICARE [facility] Advance Directives * Full Code (Latest Code Status on File) Date Activated Date Inactivated Comments 09/23/2021 2:39 PM 09/26/2021 4:31 PM Care Teams Large Animal Husbandry Technician Relationship Specialty Start Date End Date Homer Reveles MD [address] [facility] [address] [facility] [address] [place] [address] PCP - General Internal Medicine 09/23/21
--- OUTSIDE RECORDS SUMMARY | 2024-12-14 11:35 | XMS_ITS | Encounter Summary ---
Author Organization [facility] Address [address] [place] [address] Care Team Providers Care Rivet Thrower Name Role Phone Ashwini Ramos MD Primary Care Provider [phone] Encounter Details Date Type Department Care Team (Latest Contact Info) Description 10/16/2008 Outpatient Historical [facility] Elizabeth Avila MD [address] [place] [address] Other Screening Mammogram Social History Tobacco Use Types Packs/Day Years Used Date Smoking Tobacco: Never Alcohol Use Standard Drinks/Week Comments Yes 0 (1 standard drink = 0.6 oz pur e alcohol) rarely Comments No Sex and Gender Information Value Date Recorded Sex Assigned at Not on file Legal Sex Female 4:52 AM TELEVISION OPERATOR Gender Identity Not on file Sexual [...] AM CDT Narrative 10/17/2008 7:48 AM CDT [address], [place] [address] Admit Date: 10/16/2008 ARACELYPABLITOARCHIE MERARI Gloria Sex: F Admit Prov: ELIZABETH BRAGA Date: 1945 Primary Care Prov: ELIZABETH BRAGA CMRN: [id number] [facility] [address] [place] [address] IMAGING SERVICES Ordering Prov: ELIZABETH BRAGA Accession Number: [id number] Interpretation BILATERAL FULL FIELD DIGITAL SCREENING MAMMOGRAM [...] AMK Procedure Note Kezia Anguiano - 10/17/[address] [place], [place] [address] Admit Date: 10/16/2008 MERARI RUIZ Gloria Sex: F Admit Prov: ELIZABETH BRAGA Date: 1945 Primary Care Prov: ELIZABETH BRAGA CMRN: [id number] [facility] [id number] IMAGING SERVICES Ordering Prov: ELIZABETH BRAGA Interpretation [...] mammogram documented in this encounter Care Teams Rivet Thrower Relationship Specialty Start Date End Date Ashwini Ramos MD [address] [place] [address] PCP - General Internal Medicine 12/04/15 DME 12/29/16 documented as of this encounter
--- OUTSIDE RECORDS SUMMARY | 2024-12-14 11:35 | XMS_ITS | Encounter Summary ---
Author Organization [facility] Address [address] [place] [address] Care Team Providers Care Blending Kettle Tender Name Role Phone Ashwini Ramos MD Primary Care Provider [phone] Encounter Details Date Type Department Care Team (Late st Contact Info) Description 04/21/2004 Outpatient Historical [facility] Internal Medicine Medical [place] A [facility] [address] [facility] [address] [address] Wellington Melara MD [address] [place] [address] Social History Tobacco Use Types Packs/Day Years Used Date Smoking Tobacco: Never Assessed Comments Unknown Sex and Gender Information Value Date Recorded Sex Assigned at Not on file Legal Sex Female 4:52 AM PPAP COORDINATOR Gender Identity Not on file Sexual Orientation Not on file documented as of this encounter Plan of Treatment Not on file documented as of this encounter Visit Diagnoses Not on filedocumented in this encounter Care Teams Blending Kettle Tender Relationship Specialty Start Date End Date Ashwini Ramos MD [address] [facility] [address] [place] [address] PCP - General Internal Medicine 12/04/15 DME 12/29/16 documented as of this encounter
--- OUTSIDE RECORDS SUMMARY | 2024-12-14 11:35 | XMS_ITS | Encounter Summary ---
Author Organization [facility] Address [address] [place] [address] Care Team Providers Care Payroll Supervisor Name Role Phone Ashwini Ramos MD Primary Care Provider [phone] Encounter Details Date Type Department Care Team (Latest Contact Info) Description 05/15/2007 Outpatient Historical [facility] [place] [address] [place] [address] Other Screening Mammogram Social History Tobacco Use Types Packs/Day Years Used Date Smoking Tobacco: Never Assessed Comments Unknown Sex and Gender Information Value Date Recorded Sex Assigned at Not on file Legal Sex Female 4:52 AM TIMBER WATCHMAN Gender Identity Not on file Sexual Orientation Not on file documented as of this encounter Plan of Treatment Not on file documented as of this encounter Visit Diagnoses Diagnosis Other screening mammogram documented in this encounter Care Teams Payroll Supervisor Relationship Specialty Start Date End Date Ashwini Ramos MD [address] [place] [phone] PCP - General Internal Medicine 12/04/15 DME 12/29/16 documented as of this encounter
--- OUTSIDE RECORDS SUMMARY | 2024-12-14 11:35 | XMS_ITS | Encounter Summary ---
Author Organization [facility] Address [address] [place] [address] Care Team Providers Care Bilingual Sales Assistant Name Role Phone Ashwini Ramos MD Primary Care Provider [phone] Encounter Details Date Type Department Care Team (Late st Contact Info) Description 03/03/2007 Outpatient Historical [facility] Internal Medicine Medical [place] A [facility] [address] [facility] [address] [address] Kyle Salinas MD [address] [id number] Social History Tobacco Use Types Packs/Day Years Used Date Smoking Tobacco: Never Assessed Comments Unknown Sex and Gender Information Value Date Recorded Sex Assigned at Not on file Legal Sex Female 4:52 AM 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 [facility] [address] [place] [address] PCP - General Internal Medicine 12/04/15 DME 12/29/16 documented as of this encounter
--- OUTSIDE RECORDS SUMMARY | 2024-12-14 11:35 | XMS_ITS | Encounter Summary ---
Author Organization [facility] Address [address] [place] [address] Care Team Providers Care Petrophysicist Name Role Phone Ashwini Ramos MD Primary Care Provider [phone] Encounter Details Date Type Department Care Team (Late st Contact Info) Description 03/13/[address] [facility] Internal Medicine Medical [place] A [facility] [address] [facility] [address] [address] Kyle Salinas MD [address] [id number] Social History Tobacco Use Types Packs/Day Years Used Date Smoking Tobacco: Never Assessed Comments Unknown Sex and Gender Information Value Date Recorded Sex Assigned at Not on file Legal Sex Female 4:52 AM NUCLEAR SCIENTIST Gender Identity Not on file Sexual Orientation Not on file documented as of this encounter Plan of Treatment Not on file documented as of this encounter Visit Diagnoses Not on filedocumented in this encounter Care Teams Petrophysicist Relationship Specialty Start Date End Date Ashwini Ramos MD [address] [facility] [address] [place] [address] PCP - General Internal Medicine 12/04/15 DME 12/29/16 documented as of this encounter
--- OUTSIDE RECORDS SUMMARY | 2024-12-14 11:35 | XMS_ITS | Encounter Summary ---
Author Organization [facility] Address [address] [place] [address] Care Team Providers Care Svp Innovation Partnerships Name Role Phone Ashwini Ramos MD Primary Care Provider [phone] Encounter Details Date Type Department Care Team (Late st Contact Info) Description 10/16/1998 Outpatient Historical [facility] Internal Medicine Medical [place] A [facility] [address] [facility] [address] [address] Wellington Melara MD [address] [place] [address] Social History Tobacco Use Types Packs/Day Years Used Date Smoking Tobacco: Never Assessed Comments Unknown Sex and Gender Information Value Date Recorded Sex Assigned at Not on file Legal Sex Female 4:52 AM RN OCCUPATIONAL HEALTH Gender Identity Not on file Sexual Orientation Not on file documented as of this encounter Plan of Treatment Not on file documented as of this encounter Visit Diagnoses Not on filedocumented in this encounter Care Teams [employer] Relationship Specialty Start Date End Date Ashwini Ramos MD [address] [facility] [address] [place] [address] PCP - General Internal Medicine 12/04/15 DME 12/29/16 documented as of this encounter
--- OUTSIDE RECORDS SUMMARY | 2024-12-14 11:35 | XMS_ITS | Encounter Summary ---
Author Organization [facility] Address [address] [place] [address] Care Team Providers Care Oil Plant Operator Name Role Phone Ashwini Ramos MD Primary Care Provider [phone] Encounter Details Date Type Department Care Team (Late st Contact Info) Description 03/03/2007 Orders Only [facility] Internal Medicine Medical [place] A [facility] [address] [facility] [address] [address] Kyle Salinas MD [address] [facility] [address] [place] [address] Social History Tobacco Use Types Packs/Day Years Used Date Smoking Tobacco: Never Assessed Comments Unknown Sex and Gender Information Value Date Recorded Sex Assigned at Not on file Legal Sex Female 4:52 AM MANUFACTURING QUALITY ENGINEER Gender Identity Not on file Sexual [...] has noted pain along the medial joint line and also behind the knee. I actually, he has mcqueen pain that usually bothers her if she is on her legs a lot. They can be particularly severe at night when she tries to sleep. She does get significant relief with Aleve CURRENT PROBLEM LIST: 244.9 HYPOTHYROIDISM 272.0 PURE [...] TSH with reflex LAB ORDERS: Order number: [id number] Test Ordered: TSH (REFLEX FREE T4/FREE T3) [...] one tablet b.i.d. LAB ORDERS: Order number: [id number] Test Ordered: XRAY TIBIA FIBULA LEFT Order number: [id number] Test Ordered: XRAY TIBIA FIBULA RIGHT 780.57-SLEEP APNEA ASSESSMENT: Improving compliance with CPAP RECOMMENDATIONS: Strongly encouraged patient utilize her CPAP on a nightly basis. 272.4-HYPERLIPIDEMIA ASSESSMENT: due for reassessment RECOMMENDATIONS: as below LAB ORDERS: Order number: [id number] Test Ordered: LIPID PANEL 1078 Order number: [id number] Test Ordered: COMPREHENSIVE METABOLIC PANEL & GFR 1112 V04.81-NEED FOR VACCINE INFLUENZA LAB ORDERS: Order number: [id number] Test Ordered: IMMUNIZATION ADMIN SINGLE 58551 Order number: [id number] Test Ordered: INJ-INFLUENZA ADULT 70850 719.46-PAIN JOINT KNEE LAB ORDERS: Order number: [id number] Test Ordered: XRAY KNEE (PATELLA) LEFT (4 [...] on filedocumented in this encounter Care Teams Oil Plant Operator Relationship Specialty Start Date End Date Ashwini Ramos MD [address] [place] [address] PCP - General Internal Medicine 12/04/15 DME 12/29/16 documented as of this encounter
--- OUTSIDE RECORDS SUMMARY | 2024-12-14 11:35 | XMS_ITS | Encounter Summary ---
Author Organization [facility] Address [address] [place] [address] Care Team Providers Care Meat Team Member Name Role Phone Ashwini Ramos MD Primary Care Provider [phone] Encounter Details Date Type Department Care Team (Late st Contact Info) Description 03/03/2007 Outpatient Historical [facility] Internal Medicine Medical [place] A [facility] [address] [facility] [address] [address] Kyle Salinas MD [address] [id number] Social History Tobacco Use Types Packs/Day Years Used Date Smoking Tobacco: Never Assessed Comments Unknown Sex and Gender Information Value Date Recorded Sex Assigned at Not on file Legal Sex Female 4:52 AM OPERATIONS LEAD Gender Identity Not on file Sexual Orientation Not on file documented as of this encounter Plan of Treatment Not on file documented as of this encounter Visit Diagnoses Not on filedocumented in this encounter Care Teams Meat Team Member Relationship Specialty Start Date End Date Ashwini Ramos MD [address] [facility] [address] [place] [address] PCP - General Internal Medicine 12/04/15 DME 12/29/16 documented as of this encounter
--- OUTSIDE RECORDS SUMMARY | 2024-12-14 11:35 | XMS_ITS | Encounter Summary ---
Author Organization [employer] Address [address] [place] [address] Care Team Providers Care Pressure Tank Operator Name Role Phone Ashwini Ramos MD Primary Care Provider [phone] Encounter Details Date Type Department Care Team [...] file Legal Sex Female 4:52 AM OPERATIONS SYSTEMS SPECIALIST Gender Identity Not on file Sexual Orientation Not on file Occupation Industry Job Start Date Job End Date 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 Not on file Not on file Not on file documented as of this encounter Plan of Treatment Not on file documented as of this encounter Visit Diagnoses Not on filedocumented in this encounter Care Teams Pressure Tank Operator Relationship Specialty Start Date End Date Ashwini Ramos MD [address] [place] [address] PCP - General Internal Medicine 12/04/15 DME 12/29/16 documented as of this encounter
--- OUTSIDE RECORDS SUMMARY | 2024-12-14 11:35 | XMS_ITS | Clinical Summary ---
Author Organization [facility] Address [address] [place] [address] Phone Care Team Providers Care Intermodal Dispatcher Name Role Phone Ashwini Ramos MD Primary Care Provider [phone] Allergies Active Allergy Reactions Criticality Noted Date Comments Amoxicillin Swelling Low Nickel Other (See Comments) 11/06/2014 Cheap jewelry; causes black to skin & soreness to earlobes Zljsdhy-Bud-Zbr Reductase Inhibitors Muscle Pain Low 12/14/2018 Medications [...] 9 Active fluticasone propionate (FLONASE) 50 mcg/spray [place], Suspension nasal inhaler Administer 2 Sprays in [...] ipratropium bromide (ATROVENT) 42 mcg (0.06 %) [place], Non-AerosolIndic ations:Rhinorrhe a Administer 2 Sprays in [...] colonoscopy in 09/21 Hyperlipidemia 03/03/2007 Hypothyroidism 04/21/2004 SLY on CPAP 04/21/2004 Overview (11/24/2011): Cpap Age-related osteoporosis wit hout current pathological fracture 04/21/2004 Overview (08/12/2008): Took fosamax for 2 years, bone density improved and stopped. [id number] Resolved Problems Problem Noted Date Diagnosed Date [...] = 0.6 oz pur e alcohol) rarely Education Answer Date Recorded What is the highest level of school you have completed or the highest degree you have received? 12th grade 04/28/2020 Comments No Sex and Gender Information Value Date Recorded Sex Assigned at Not on file Legal Sex Female 4:52 AM WHEEL LACER AND TRUER Gender Identity Not on file Sexual Orientation Not on file Occupation Industry Job Start Date Job End Date 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 Not on file Not on file Not on file Not on file Not on file Not on file Not on file Last Filed Vital Signs Vital Sign Reading Time Taken Comments Blood Pressure 128/60 04/28/2020 9:19 AM WHEEL LACER AND TRUER Pulse 87 04/28/2020 9:19 AM WHEEL LACER AND TRUER Temperature 36.8 C (98.3 F) 02/14/2019 11:29 AM CDT Respiratory Rate 16 04/28/2020 9:19 AM WHEEL LACER AND TRUER Oxygen Saturation 99% 04/28/2020 9:19 AM WHEEL LACER AND TRUER Inhaled Oxygen Concentration - - Weight 78.5 kg (173 lb) 05/23/2020 10:18 AM WHEEL LACER AND TRUER Height 160 cm (5' 2.99) 05/23/2020 10:18 AM WHEEL LACER AND TRUER Body Mass Index 30.65 05/23/2020 10:18 AM WHEEL LACER AND TRUER Plan of Treatment Health Maintenance Due Date [...] years Discontinued Medical Devices Implanted Type Area Louver Mortiser Operator Device Identifier Shelf Expiration Date Model / Serial / Lot Biomet Bone Cement Implanted:Qt y: 2 on 07/20/2018 by Wellington Hsu MD at [facility] Cement Right: Knee [employer] [id number] 12/13/2022 [id number] / / [id number] Description:requisition # 85 [id number]. Shell G7 Pps Lmtd Hl 54mm [id number] - [id number] Implanted:Qt y: 1 on 12/19/2014 by Wellington Hsu MD at [facility] Hip Left: Hip [employer] 10/13/2024 [id number] / / [id number] Description:PROCESSED ON REQ UISITION,[id number]. Liner Arcomxl Neut 40mm Szf [id number] - [id number] Implanted:Qt y: 1 on 12/19/2014 by Wellington Hsu MD at [facility] Hip Left: Hip [employer] 11/12/2018 [id number] / / [id number] Stem Fem Echo Bimetric Por Nc 040447 - [id number] Implanted:Qt y: 1 on 12/19/2014 by Wellington Hsu MD at [facility] Hip Left: Hip [employer] 11/14/2024 [id number] / / [id number] Slv Biolox Delta Optn Type 1 650-1065 - [id number] Implanted:Qt y: 1 on 12/19/2014 by Wellington Hsu MD at [facility] Hip Left: Hip [employer] 03/15/2023 650-1065 / / [id number] Head Fem Biolox Option 40mm 650-1058 - [id number] Implanted:Qt y: 1 on 12/19/2014 by Wellington Hsu MD at [facility] Hip Left: Hip [employer] 12/13/2024 650-1058 / / [id number] Shell G7 Pps Lmtd Hl 54mm [id number] - [id number] Implanted:Qt y: 1 on 09/05/2017 by Wellington Hsu MD at [facility] Hip Right: Acetabulum [employer] [id number] 08/12/2027 [id number] / / [id number] Description:REQUISITION # [id number] Liner Arcomxl Neut 36mm Szf [id number] - [id number] Implanted:Qt y: 1 on 09/05/2017 by Wellington Hsu MD at [facility] Hip Right: Acetabulum [employer] [id number] 07/17/2022 [id number] / / [id number] Stem Fem Echo Bimetric Por Nc 480184 - [id number] Implanted:Qt y: 1 on 09/05/2017 by Wellington Hsu MD at [facility] Hip Right: Hip [employer] 05/30/2027 [id number] / / [id number] Head Fem Mod Cer Biolox 36mm [id number] - [id number] Implanted:Qt y: 1 on 09/05/2017 by Wellington Hsu MD at [facility] Hip Right: Hip [employer] 01/26/2027996007 / / [id number] Patella 3peg Series A 942262 - [id number] Implanted:Qt y: 1 on 07/20/2018 by Wellington Hsu MD at [facility] Knee Right: Knee [employer] 06/12/2023 [id number] / / [id number] Comp Tib Intrlk Prim 75mm [id number] - [id number] Implanted:Qt y: 1 on 07/20/2018 by Wellington Hsu MD at [facility] Knee Right: Knee [employer] 09/27/2027 [id number] / / [id number] Stem Tib Prim Finned 40mm 708958 - [id number] Implanted:Qt y: 1 on 07/20/2018 by Wellington Hsu MD at [facility] Knee Right: Knee [employer] 06/24/2028 [id number] / / [id number] Comp Fem Vngrd Ti 65mm [id number] - [id number] Implanted:Qt y: 1 on 07/20/2018 by Wellington Hsu MD at [facility] Knee Right: Knee [employer] 06/19/2028 [id number] / / [id number] Brg Tib Vngrd Ant Stblzd 048372 - [id number] Implanted:Qt y: 1 on 07/20/2018 by Wellington Hsu MD at [facility] Knee Right: Knee [employer] 05/30/2023 [id number] / / [id number] Screw G7 Lp 6.5x25mm [id number] - [id number] Implanted:Qt y: 1 on 12/19/2014 by Wellington Hsu MD at [facility] Screw Left: Hip [employer] 06/15/2024 [id number] / / [id number] Screw G7 Lp 6.5x25mm [id number] - [id number] Implanted:Qt y: 1 on 09/05/2017 by Wellington Hsu MD at [facility] Screw Right: Acetabulum [employer] [id number] 06/21/2027 [id number] / / [id number] Procedures Procedure Name Priority Date/Time Associated Diagnosis Comments XR DEXA BONE DENSITY AXIAL 1 OR MORE SITES Routine 05/19/2020 1:12 PM WHEEL LACER AND TRUER Osteopenia, unspecified location Medicare annual wellness visit, subsequent Post-menopausal from Last 3 Months or Most Recently Relevant to Health Maintenance Results * XR DEXA BONE DENSITY AXIAL 1 OR MORE SITES (05/19/2020 1:12 PM WHEEL LACER AND TRUER) Anatomical Region Laterality Modality Digital Radiogra phy 05/19/2020 1:12 PM WHEEL LACER AND TRUER Narrative 05/19/2020 2:57 PM WHEEL LACER AND TRUER XR DEXA BONE DENSITY AXIAL 1 OR MORE SITES DATE: 05/19/2020 1:12 PM HISTORY: 75 years old Female with post menopausal symptoms. PROCEDURE: Planar images of the lumbar spine, forearm using a Ungalli DEXA scanner for bone mineral density determination [...] Sherman DO DICTATION LOCATION: Location 1 - [facility] Procedure Note Aki Sherman DO - 05/19/2020 XR DEXA BONE DENSITY AXIAL 1 OR MORE SITES DATE: 05/19/2020 1:12 PM HISTORY: 75 years old Female with post menopausal symptoms. PROCEDURE: Planar images of the lumbar spine, forearm using a Ungalli DEXA scanner for bone mineral density determination [...] years thereafter Dictated by Dr. Aki Sherman, DICTATION LOCATION: Location [address] [place] [address] Jahaira Sims OPERATIONS DEVELOPER DIAGNOSTIC IMAGING ORDE RABANMOL Final Result from Last 3 Months or Most Recently Relevant to Health Maintenance Insurance MEDICARE PART A AND B [employer] MEDICARE SUPP AESSI RX [place] Medicare Part D RX [place] Medicare Part B Advance Directives For more information, please contact: [phone] * Full Code (Latest Code Status on [...] 9:59 AM 09/05/2017 3:37 PM Care Teams Intermodal Dispatcher Relationship Specialty Start Date End Date Ashwini Ramos MD [address] [place] [address] PCP - General Internal Medicine 12/04/15 DME 12/29/16
--- OUTSIDE RECORDS SUMMARY | 2024-12-14 11:35 | XMS_ITS | Encounter Summary ---
Author Organization [facility] Address [address] [place] [address] Care Team Providers Care Stringer Up Soldering Machine Name Role Phone Ashwini Ramos MD Primary Care Provider [phone] Encounter Details Date Type Department Care Team (Late st Contact Info) Description 10/14/2006 Outpatient Historical [facility] Internal Medicine Medical [place] A [facility] [address] [facility] [address] [address] Kyle Salinas MD [address] [facility] [address] [place] [address] Social History Tobacco Use Types Packs/Day Years Used Date Smoking Tobacco: Never Assessed Comments Unknown Sex and Gender Information Value Date Recorded Sex Assigned at Not on file Legal Sex Female 4:52 AM ENVIRONMENTAL SERVICES WORKER Gender Identity Not on file Sexual Orientation [...] on filedocumented in this encounter Care Teams Stringer Up Soldering Machine Relationship Specialty Start Date End Date Ashwini Ramos MD [address] [place] [address] PCP - General Internal Medicine 12/04/15 DME 12/29/16 documented as of this encounter
--- OUTSIDE RECORDS SUMMARY | 2024-12-14 11:35 | XMS_ITS | Encounter Summary ---
Author Organization [email or web address] Address [address] [place] [address] Care Team Providers Care Band Tacker Name Role Phone Ashwini Ramos MD Primary Care Provider [phone] Encounter Details Date Type Department Care Team (Latest Contact Info) Description 06/13/2002 Outpatient Historical HIS COMMUNITY TERRITORY ACCOUNT REPRESENTATIVE Wellington Melara MD [address] [place] [address] PURE HYPERCHOLESTEROLEM (Primary Dx) Social History Tobacco Use Types Packs/Day Years Used Date Smoking Tobacco: Never Assessed Comments Unknown Sex and Gender Information Value Date Recorded Sex Assigned at Not on file Legal Sex Female 4:52 AM CARE AID Gender Identity Not on file Sexual Orientation Not on file documented as of this encounter Plan of Treatment Not on file documented as of this encounter Visit Diagnoses Diagnosis Pure hypercholesterolemia- Primary documented in this encounter Care Teams Band Tacker Relationship Specialty Start Date End Date Ashwini Ramos MD [address] [facility] [address] [place] [address] PCP - General Internal Medicine 12/04/15 DME 12/29/16 documented as of this encounter
--- OUTSIDE RECORDS SUMMARY | 2024-12-14 11:35 | XMS_ITS | Encounter Summary ---
Author Organization [facility] Address [address] [place] [address] Care Team Providers Care Support Services Tech Name Role Phone Ashwini Ramos MD Primary Care Provider [phone] Encounter Details Date Type Department Care Team (Late st Contact Info) Description 10/14/2006 Orders Only [facility] Internal Medicine Medical [place] A [facility] [address] [facility] [address] [address] Kyle Salinas MD [address] [facility] [address] [place] [address] Social History Tobacco Use Types Packs/Day Years Used Date Smoking Tobacco: Never Assessed Comments Unknown Sex and Gender Information Value Date Recorded Sex Assigned at Not on file Legal Sex Female 4:52 AM MAKE READY WORKER Gender Identity Not on file Sexual [...] recently had blood work done by her sample carrier that revealed cholesterol 232 and LDL cholesterol [...] on filedocumented in this encounter Care Teams Support Services Tech Relationship Specialty Start Date End Date Ashwini Ramos MD [address] [place] [address] PCP - General Internal Medicine 12/04/15 DME 12/29/16 documented as of this encounter
--- OUTSIDE RECORDS SUMMARY | 2024-12-14 11:35 | XMS_ITS | Encounter Summary ---
Author Organization [facility] Address [address] [place] [address] Care Team Providers Care Deburr Technician Name Role Phone Ashwini Ramos MD Primary Care Provider [phone] Encounter Details Date Type Department Care Team (Late st Contact Info) Description 07/30/1998 Outpatient Historical [facility] Internal Medicine Medical [place] A [facility] [address] [facility] [address] [address] Wellington Melara MD [address] [place] [address] Social History Tobacco Use Types Packs/Day Years Used Date Smoking Tobacco: Never Assessed Comments Unknown Sex and Gender Information Value Date Recorded Sex Assigned at Not on file Legal Sex Female 4:52 AM PRIMER BOXER Gender Identity Not on file Sexual Orientation Not on file documented as of this encounter Plan of Treatment Not on file documented as of this encounter Visit Diagnoses Not on filedocumented in this encounter Care Teams Deburr Technician Relationship Specialty Start Date End Date Ashwini Ramos MD [address] [facility] [address] [place] [address] PCP - General Internal Medicine 12/04/15 DME 12/29/16 documented as of this encounter
--- OUTSIDE RECORDS SUMMARY | 2024-12-14 11:35 | XMS_ITS | Encounter Summary ---
Author Organization [facility] Address [address] [place] [address] Care Team Providers Care General Assembler Name Role Phone Ashwini Ramos MD Primary Care Provider [phone] Encounter Details Date Type Department Care Team (Late st Contact Info) Description 12/07/2001 Outpatient Historical [facility] Internal Medicine Medical [place] A [facility] [address] [facility] [address] [address] Wellington Melara MD [address] [place] [address] Social History Tobacco Use Types Packs/Day Years Used Date Smoking Tobacco: Never Assessed Comments Unknown Sex and Gender Information Value Date Recorded Sex Assigned at Not on file Legal Sex Female 4:52 AM CAPTAIN'S ASSISTANT Gender Identity Not on file Sexual Orientation Not on file documented as of this encounter Plan of Treatment Not on file documented as of this encounter Visit Diagnoses Not on filedocumented in this encounter Care Teams General Assembler Relationship Specialty Start Date End Date Ashwini Ramos MD [address] [facility] [address] [place] [address] PCP - General Internal Medicine 12/04/15 DME 12/29/16 documented as of this encounter
--- OUTSIDE RECORDS SUMMARY | 2024-12-14 11:35 | XMS_ITS | Encounter Summary ---
Author Organization [facility] Address [address] [place] [address] Care Team Providers Care News Editor Name Role Phone Ashwini Ramos MD Primary Care Provider [phone] Encounter Details Date Type Department Care Team (Late st Contact Info) Description 07/31/1999 Outpatient Historical [facility] [place] Internal Medicine Medical [place] A [facility] [address] [facility] [address] [address] Wellington Melara MD [address] [place] [address] Social History Tobacco Use Types Packs/Day Years Used Date Smoking Tobacco: Never Assessed Comments Unknown Sex and Gender Information Value Date Recorded Sex Assigned at Not on file Legal Sex Female 4:52 AM QC TECH Gender Identity Not on file Sexual Orientation Not on file documented as of this encounter Plan of Treatment Not on file documented as of this encounter Visit Diagnoses Not on filedocumented in this encounter Care Teams News Editor Relationship Specialty Start Date End Date Ashwini Ramos MD [address] [facility] [address] [place] [address] PCP - General Internal Medicine 12/04/15 DME 12/29/16 documented as of this encounter
--- OUTSIDE RECORDS SUMMARY | 2024-12-14 11:35 | XMS_ITS | Encounter Summary ---
Author Organization [facility] Address [address] [place] [address] Care Team Providers Care Vending Enterprises Supervisor Name Role Phone Ashwini Ramos MD Primary Care Provider [phone] Encounter Details Date Type Department Care Team (Late st Contact Info) Description 07/17/2007 Orders Only [facility] Internal Medicine Medical [place] A [facility] [address] [facility] [address] [address] Kyle Salinas MD [address] [id number] Social History Tobacco Use Types Packs/Day Years Used Date Smoking Tobacco: Never Assessed Comments Unknown Sex and Gender Information Value Date Recorded Sex Assigned at Not on file Legal Sex Female 4:52 AM SPORTS BOOKMAKER Gender Identity Not on file Sexual Orientation Not on file documented as of this encounter Plan of Treatment Not on file documented as of this encounter Visit Diagnoses Not on filedocumented in this encounter Care Teams Vending Enterprises Supervisor Relationship Specialty Start Date End Date Ashwini Ramos MD [address] [facility] [address] [place] [address] PCP - General Internal Medicine 12/04/15 DME 12/29/16 documented as of this encounter
--- OUTSIDE RECORDS SUMMARY | 2024-12-14 11:35 | XMS_ITS | Encounter Summary ---
Author Organization [employer] Address [address] [place] [address] Care Team Providers Care Credit And Collections Analyst Name Role Phone Ashwini Ramos MD Primary Care Provider [phone] Encounter Details Date Type Department Care Team (Late st Contact Info) Description 04/21/2007 Outpatient Historical [facility] Kyle Salinas MD [address] [address] Osteoarth NOS-Unspec Social History Tobacco Use Types Packs/Day Years Used Date Smoking Tobacco: Never Assessed Comments Unknown Sex and Gender Information Value Date Recorded Sex Assigned at Not on file Legal Sex Female 4:52 AM DATA DEVELOPER Gender Identity Not on file Sexual Orientation Not on file documented as of this encounter Plan of Treatment Not on file documented as of this encounter Visit Diagnoses Diagnosis Osteoarthrosis, unspecified whether generalized or localized, unspecified site documented in this encounter Care Teams Credit And Collections Analyst Relationship Specialty Start Date End Date Ashwini Ramos MD [address] [place] [address] [address] [place] [address] PCP - General Internal Medicine 12/04/15 DME 12/29/16 documented as of this encounter
--- OUTSIDE RECORDS SUMMARY | 2024-12-14 11:35 | XMS_ITS | Encounter Summary ---
Author Organization [employer] Address [address] [place] [address] Care Team Providers Care [place] Supervisor Name Role Phone Ashwini Ramos MD Primary Care Provider [phone] Encounter Details Date Type Department Care Team (Latest Contact Info) Description 06/27/2003 Outpatient Historical [facility] Wellington Melara MD [address] [place] [address] SCREENING-CARDIOVAS C NEC (Primary Dx) Social History Tobacco Use Types Packs/Day Years Used Date Smoking Tobacco: Never Assessed Comments Unknown Sex and Gender Information Value Date Recorded Sex Assigned at Not on file Legal Sex Female 4:52 AM BUDGET ASSISTANT Gender Identity Not on file Sexual Orientation Not on file documented as of this encounter Plan of Treatment Not on file documented as of this encounter Visit Diagnoses Diagnosis Screening for other and unspecified cardiovascular conditions- Primary documented in this encounter Care Teams [place] Supervisor Relationship Specialty Start Date End Date Ashwini Ramos MD [address] [facility] [address] [place] [address] PCP - General Internal Medicine 12/04/15 DME 12/29/16 documented as of this encounter
--- OUTSIDE RECORDS SUMMARY | 2024-12-14 11:35 | XMS_ITS | Encounter Summary ---
Author Organization [facility] Address [address] [place] [address] Care Team Providers Care Photostat Operator Name Role Phone Ashwini Ramos MD Primary Care Provider [phone] Encounter Details Date Type Department Care Team (Late st Contact Info) Description 01/10/2003 Outpatient Historical [facility] Internal Medicine Medical [place] A [facility] [address] [facility] [address] [address] Wellington Melara MD [address] [place] [address] Social History Tobacco Use Types Packs/Day Years Used Date Smoking Tobacco: Never Assessed Comments Unknown Sex and Gender Information Value Date Recorded Sex Assigned at Not on file Legal Sex Female 4:52 AM AUTOMOBILE MECHANIC ASSISTANT Gender Identity Not on file Sexual Orientation Not on file documented as of this encounter Plan of Treatment Not on file documented as of this encounter Visit Diagnoses Not on filedocumented in this encounter Care Teams Photostat Operator Relationship Specialty Start Date End Date Ashwini Ramos MD [address] [facility] [address] [place] [address] PCP - General Internal Medicine 12/04/15 DME 12/29/16 documented as of this encounter
--- OUTSIDE RECORDS SUMMARY | 2024-12-14 11:35 | XMS_ITS | Encounter Summary ---
Author Organization [facility] Address [address] [place] [address] Care Team Providers Care Produce Buyer Name Role Phone Ashwini Ramos MD Primary Care Provider [phone] Encounter Details Date Type Department Care Team (Late st Contact Info) Description 04/24/1998 Outpatient Historical [facility] Internal Medicine Medical [place] A [facility] [address] [facility] [address] [address] Wellington Melara MD [address] [place] [address] Social History Tobacco Use Types Packs/Day Years Used Date Smoking Tobacco: Never Assessed Comments Unknown Sex and Gender Information Value Date Recorded Sex Assigned at Not on file Legal Sex Female 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 [facility] [address] [place] [address] PCP - General Internal Medicine 12/04/15 DME 12/29/16 documented as of this encounter
== END 2024-12-14 11:31 | disposition home or self-care (01) ==
PROVIDERS: PCP Internal Medicine; Visit Provider Internal Medicine
DX: M25.462 Effusion, left knee (principal); M17.12 Unilateral primary osteoarthritis, left knee
CPT/HCPCS: 73564

== ENCOUNTER 2025-03-28 13:58 | Outpatient (CLI) | payer MEDICARE, SELFPAY ==
--- NOTE | ~2025-03-28 | MM_ITS ---
EXAMINATION: MM screening nimo BI w concha HISTORY: Screening TECHNIQUE: Craniocaudal and mediolateral oblique 3-D tomosynthesis images were obtained and synthetic 2-D images were generated. CAD analysis was submitted and interpreted. COMPARISON: No prior mammogram is available for comparison at this institution. BREAST PARENCHYMAL COMPOSITION: Not dense: There are scattered areas of fibroglandular density. FINDINGS: There is no evidence of suspicious mass, calcification, or architectural distortion to suggest malignancy in either breast. There has been no suspicious interval change. IMPRESSION: 1. No mammographic evidence of malignancy. 2. Recommend routine screening mammography in one year. BI-RADS Category 1: Negative Reviewed, dictated and finalized at location B. [employer]ARM [employer]ICAL SYSTEMS DESIGNER
--- NOTE | ~2025-03-28 | DEXA_ITS ---
Bone Density Report Name: SUREKHA RUIZ Age: 80 Sex: Female Ethnicity: White Date of : 1945 Indication: postmenopausal; screening for osteoporosis; height loss; prior fracture; hysterectomy; Referring Provider: GABRIELLA BOYCE Study: Bone densitometry was performed. Exam Date: March 28, 2025 Accession number: [id number] Bone Density: Region BMD T-score Z-score Classification AP Spine(L1-L4) 1.550 4.6 7.3 Normal World Health Organization criteria for BMD impression classify patients as: Normal (T-score at or above -1.0), Osteopenia (T-score between -1.0 and -2.5), or Osteoporosis (T-score at or below -2.5). Clinical Information Provided by Patient: Have had a previous hip or vertebral fracture Has had a low trauma fracture Has used the following medications: Vitamin D, Calcium Has the following medical conditions: Hysterectomy Patient maximum height was 65 No regular weight bearing exercise Drinks caffeinated beverages Onset of menses at age 13 Number of children 2 Missed period for more than 6 months in a row Impression: The patient has normal bone mass. The patient has risk factors, including: previous fracture. Discussion: INCREASED RISK OF FRACTURE DUE TO HISTORY OF FRACTURE. The patient's previous fracture puts the patient at high risk of a future fracture. In untreated patients, the risk of osteoporotic fracture increases approximately two-fold for each 1.0 SD decrease in T-score. Low bone density is not the only risk factor for fracture; also consider factors such as patient's age, frailty or poor health, risk of falling, risk of injury, previous osteoporotic fracture, family history of osteoporosis, cigarette smoking, low body weight, etc. Not everyone with a low trauma fracture has osteoporosis; osteomalacia and other metabolic bone disorders should also be considered. Patients who have osteoporosis should be evaluated for specific diseases and conditions (secondary causes) that may cause or contribute to bone loss and fracture risk. National Osteoporosis Foundation (NOF) recommends pharmacologic intervention for patients with a prior hip or vertebral fracture regardless of BMD T-score. The patient should follow a healthful lifestyle (good nutrition with adequate calcium and vitamin D, and appropriate weight-bearing exercise). Follow-Up: Consider a repeat BMD and Vertebral Fracture Assessment (VFA) exam in 2 years or sooner if medically necessary, to reassess this patient's status. Reported by: GORDON on 03/28/2025 2:47:00 PM. Reviewed, dictated and finalized at location A.
--- OUTSIDE RECORDS SUMMARY | 2025-03-28 14:30 | XMS_ITS | Data Portability ---
Author Organization [facility] Purple Binder, [facility] OFF[facility] Address [address] [place] [address] Assessment Encounter Date Assessment Date Assessment LastModified by Organization Details LastModified Time 01/23/2025 01/23/2025 1 . Left Knee Moderate to Severe Osteoarthritis - Predominantly affecting medial compartment and patellofemoral joint - Grade 4 changes on X-ray with significant spurring - Failed conservative management including recent cortisone injection - Patient has history of contralateral TKA in 2014 2. Medial Meniscus Tear, Left Knee - Degenerative tear identified on ultrasound - Secondary to underlying osteoarthritic changes - Contributing to medial joint line pain 3. Plan: - Discussed treatment options including continued conservative management vs. surgical intervention - Patient interested in biologics treatment to potentially delay need for TKA - Recommended stem cell therapy with bone marrow aspirate, PRP, and adipose-derived stem cells - Discussed expected outcomes, success rates (approximately 80% with 50-60% improvement for 2-5 years) - Discussed procedure details, recovery timeline, and potential complications - Patient to meet with staff for scheduling and financial details LEFT KNEE - Comprehensive stem cell treatment recommended: - Initial treatment: Combination of bone marrow aspirate from iliac crest, PRP from peripheral blood, and adipose-derived stem cells - Targeted injections to: * Medial compartment with decompression to address severe arthritis * Patellofemoral compartment with decompression to address severe arthritis * Medial meniscus to address degenerative tear * Lateral meniscus to address mild degenerative changes Follow-up treatment recommended in 3-6 months: - Secondary injection with PRP and adipose-derived stem cells to support maturation of initially grafted cells Post-procedure protocol: - First 2 weeks: Limited weight-bearing activity, no exercise that elevates heart rate - Week 3: Progress to 50% of normal activity as tolerated - Week 6: Return to full activities as tolerated - Expected grafting and initial improvement by 6 weeks post-procedure [email or web address] Not available 01/23/2025 14:11:04 Plan of Treatment Reminders Order Date Submit Date Provider Last Modified By Organization Details Last Modified Time Details Appointments None record ed. Lab None record ed. Referral None record ed. Procedures None record ed. Surgeries None record ed. Imaging None record ed. Medication Orders None record ed. Patient TargetsNo targets recorded. Patient InstructionsNo instructions recorded. Reason for Referral None Reported. Procedures Surgical History Date Name Laterality Status Provider Name and Address Organization Details Recorded Time 01/24/20 25 Imaging Studies completed Brenden Lua [address] [place], [address], [facility] [employer] [facility], [facility] 01/23/2025 14:17:20 prosthetic arthroplasty of hip completed [facility], [facility] 01/23/2025 13:16:31 arthroplasty of knee completed [facility], [facility] 01/23/2025 13:16:41 ankle joint operations completed [facility], [facility] 01/23/2025 13:16:49 Imaging Results None recorded. Procedure Notes None recorded. Medical Equipment None Reported. Allergies No known drug allergies Medications Name Sig Start Date Stop Date Status Note LastModified by Organization Details LastModified Time amoxicillin 500 mg capsule TAKE 1 CAPSULE BY MOUTH THREE TIMES DAILY UNTIL GONE active Not Available Not Available N ot Available prednisone 10 mg tablet TAKE 1 TABLET BY MOUTH TWICE DAILY FOR 10 DAYS active Not Available Not Available No t Available mycophenolat e mofetil 250 mg capsule TAKE 1 CAPSULE BY MOUTH TWICE DAILY active Not Available Not Available No t Available prednisone 20 mg tablet TAKE 2 TABLETS BY MOUTH ONCE DAILY active Not Available Not Available No t Available alendronate 70 mg tablet TAKE 1 TABLET BY MOUTH ONCE A WEEK active Not Available Not Available No t Available venlafaxine ER 150 mg capsule,exte nded release 24 hr TAKE 1 CAPSULE BY MOUTH ONCE DAILY active Not Available Not Available No t Available azathioprine 50 mg tablet TAKE 1 TABLET BY MOUTH TWICE DAILY active Not Available Not Available No t Available tramadol 50 mg tablet TAKE 1 TABLET BY MOUTH EVERY 6 HOURS NEEDED FOR PAIN active Not Available Not Available No t Available levothyroxin e 100 mcg tablet TAKE ONE TABLET BY MOUTH ON MONDAYS AND THURSDAYS active Not Available Not Available No t Available levothyroxin e 88 mcg tablet TAKE 1 TABLET BY MOUTH ONCE DAILY active Not Available Not Available No t Available fluoxetine 10 mg capsule TAKE 1 CAPSULE BY MOUTH ONCE DAILY active Not Available Not Available No t Available pravastatin 20 mg tablet TAKE 1 TABLET BY MOUTH EVERY OTHER DAY active Not Available Not Available No t Available mupirocin 2 % topical ointment APPLY TOPICALLY IN LEFT NOSTRIL USING Q TIP TWICE DAILY FOR 7 DAYS active Not Available Not Available N ot Available hydroxychlor oquine 200 mg tablet TAKE 1 TABLET BY MOUTH ONCE DAILY active Not Available Not Available No t Available ipratropium bromide 21 mcg (0.03 %) nasal spray USE 2 SPRAY(S) IN EACH NOSTRIL TWICE DAILY active Not Available Not Available Not Available ezetimibe 10 mg tablet TAKE 1 TABLET BY MOUTH ONCE DAILY active Not Available Not Available No t Available metoprolol tartrate 25 mg tablet TAKE 1 TABLET BY MOUTH TWICE DAILY active Not Available Not Available No t Available chlorhexidin e gluconate 0.12 % mouthwash RINSE MOUTH WITH 15ML (1 CAPFUL) FOR 30 SECONDS TWICE DAILY IN THE MORNING AND THE EVENING AFTER TOOTHBRUSHI NG. EXPECTORATE AFTER RINSING, DO NOT SWALLOW active Not Available Not Available Not Available Flonase active Not Available Not Avail able Not Available Dulcolax (bisacodyl) active Not Available Not Available Not Available Myrbetriq 25 mg tablet,exten ded release TAKE 1 TABLET BY MOUTH ONCE DAILY active Not Available Not Available No t Available apixaban 5 mg tablet Take 1 tablet twice a day by oral route. active Not Available Not Available No t Available Vitals Date Recorded Heart rate Body height Body mass index (BMI) Body weight Systolic And Diastolic Provider Name and Address Organization Details Last Updated DateTime 01/23/2025 76 /min 160.02 cm 27.5 kg/m2 96277.82 g 137/54 mm[Hg] [facility] 01/23/2025 13:15:07 Social History Question Answer Notes LastModified by [employer] Details LastModified Time Tobacco Smoking Status Never Smoker [employer] [facility], [facility] 01/23/2025 13:16:03 What Is Your Relationship Status? [email or web address] Information not available 01/23/2025 Sex: Unknown Functional Status Question Answer Note LastModified by [employer] Details LastModified Time What is your level of alcohol consumption? Occasional [email or web address] Information not available 01/23/2025 Are you currently employed? No [email or web address] Information not available 01/23/2025 Mental Status None recorded. Family History Relationship Description Onset Age of this Age Resolved Age Notes LastModified by Organization Details LastModified Time Unspecified Relation Hypercholest erolemia [email or web address] Not available 01/23 13:15:49 Unspecified Relation Cerebrovascu lar accident [email or web address] Not available 13:15:54 Medical History Condition Response Other Cancer N Coronary Artery Disease N HIV or AIDS N Gout N Kidney Stones N Hyperthyroidism N Breast Cancer N Head Trauma/Injury N Hernia N Lung Cancer N Depression N Lung Disease N COPD N Hypothyroidism Y Blood Clots N Pneumonia N Pacemaker N Parkinson's N Anxiety Disorder N Multiple Sprains N Arthritis Y Alcohol / Substance Abuse N Kidney Cancer N Cancer N Stroke N Melanoma N Spenser Danlos Syndrome (EDS) N Bowel Dysfunction N Neck Injury N Leg or Foot Ulcers N High Cholesterol Y Skin Cancer N Liver Disease N Rheumatoid Arthritis N Fibromyalgia N Headaches N Gastric Issues N Concussion N Kidney Disease Y Heart Problems N Scoliosis N Chronic use of Pain Medication N Prostate Cancer N Migraines N Thyroid Problems N Alzheimers N DVT N Autoimmune Disorder N Anemia N Multiple Sclerosis N Tendon Tear N Ulcers N Heart Attack ([place]) N Osteopenia N Diabetes N Bleeding Disorder N Seizures/Epilepsy N Cardiac Stent N Tuberculosis N A-FIB N BPH N Lymphoma N Urinary Tract Infection N Back Problems N Diverticulitis N Dementia N Vision Problems N Asthma N Lupus N Blood Bank Supervisor Medication Use N Peripheral Vascular Disease N Sleep Apnea N Sleep Disorder N GERD/Reflux N Hepatitis N Aneurysm N Thyroid Cancer N Heart Disease Y Bronchitis N Pulmonary Embolism N Hypertension N Osteoporosis N Gynecological HistoryNo gynecological history recorded. Obstetrics History GPAL:G 0 P 0 0 0 0 Past Encounters Encounter ID Performer Location Encounter Start Date Encounter Closed Date Diagnosis/Indication Diagnosis SNOMED-CT Code Diagnosis ICD10 Code Diagnosis IMO Codes Diagnosis Note [id number] Brenden Lua [facility]MAIN OFFICE [address] [facility] [address] [place] [address] 01/23/2025 12:27:17 01/28/2025 09:08:33 Osteoarthritis of left knee joint [id number] 35009 M17.12 [id number] Health Concerns Section Related Observation LastModified by Organization Detai ls LastModified Time None Recorded Concern Status LastModified by Organization Details LastModified Time None Recorded Advance Directives Directive None Recorded Payers Insurance Date Sequence Insurance Name Policy Number Policy Eugene Covered Member ID Eugene Member ID Guarantor Name 01/21/2025 1 [place] Merari Elmore [id number] Merari Elmore 01/28/2025 2 [place] Merari Elmore [id number] Merari Morrisyaokassidy Notes Date Note Type Note Provider Name and Address Organization Details Recorded Time 01/23/2025 text/html [age]-year-old female presents with persistent left knee pain ongoing for the past one month. She describes predominantly medial pain that worsens when going up and down stairs, standing, and walking. Patient denies any catching, locking, or feeling of the knee getting stuck. She currently uses a cane to ambulate. She received a cortisone injection in December 2024 which provided no relief. Patient has a history of right total knee replacement in 06/2014. She currently rates her pain as 3/10. Patient reports occasional giving way of the knee, particularly after using stairs. She denies any recent trauma but mentions increased activity prior to onset of symptoms. Patient reports some swelling in the knee. She indicates pain is worse on the medial aspect of the knee compared to the lateral side. Brenden Lua [address] [place], [address], [facility], [facility] 01/23/2025 14:18:29 OBGyn Episode No OBEpisode recorded.
--- OUTSIDE RECORDS SUMMARY | 2025-03-28 14:30 | XMS_ITS | Encounter Summary ---
Author Organization [facility] Address [address] [place] [address] Care Team Providers Care Certified Wellness Program Manager Name Role Phone Ashwini Ramos MD Primary Care Provider [phone] Encounter Details Date Type Department Care Team (Late st Contact Info) Description 12/21/2005 Outpatient Historical [facility] Internal Medicine Medical [place] A [facility] [address] [facility] [address] [address] Gloria Espino MD 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
--- OUTSIDE RECORDS SUMMARY | 2025-03-28 14:30 | XMS_ITS | Encounter Summary ---
Author Organization [employer] Address 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
--- OUTSIDE RECORDS SUMMARY | 2025-03-28 14:30 | XMS_ITS | Encounter Summary ---
Author Organization [facility] Address [address] [place] [address] Care Team Providers Care Director Child Development Center Name Role Phone Ashwini Ramos MD Primary Care Provider [phone] Encounter Details Date Type Department Care Team (Late st Contact Info) Description 04/21/2004 Outpatient Historical [facility] Internal Medicine Medical [place] A [facility] [address] [facility] [address] [address] Wellington Melara MD [address] [place] [address] Social History Tobacco Use Types Packs/Day Years Used Date Smoking Tobacco: Never Assessed Comments Unknown Sex and Gender Information Value Date Recorded Sex Assigned at Not on file Legal Sex Female 4:52 AM KARATE BLACK BELT Gender Identity Not on file Sexual Orientation Not on file documented as of this encounter Plan of Treatment Not on file documented as of this encounter Visit Diagnoses Not on filedocumented in this encounter Care Teams Director Child Development Center Relationship Specialty Start Date End Date Ashwini Ramos MD [address] [facility] [address] [place] [address] PCP - General Internal Medicine 12/04/15 DME 12/29/16 documented as of this encounter
--- OUTSIDE RECORDS SUMMARY | 2025-03-28 14:30 | XMS_ITS | Encounter Summary ---
Author Organization [employer] Address 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
--- OUTSIDE RECORDS SUMMARY | 2025-03-28 14:30 | XMS_ITS | Clinical Summary ---
Author Organization [facility] Address [address] [place] [address] Phone Care Team Providers Care Pricing Consultant Name Role Phone Homer Reveles MD Primary Care Provider [phone] Homer Reveles MD Unavailable [phone] Allergies Active Allergy Reactions Criticality Noted Date [...] by mouth twice daily 180 tablet 1 5 Active Active Problems Problem Noted Date Diagnosed Date Nonrheumatic aortic valve insufficiency 10/26/19 23 Nonrheumatic mitral valve regurgitation 10/26/19 23 Other chest pain 07/06/2021 Permanent atrial fibrillation 02/12/2021 Mixed hyperlipidemia 02/12/2021 Current use of jail anticoagulation 021 Other specified hypothyroidism 02/12/2021 Interstitial [...] on file Legal Sex Female 7:10 PM CLOTH FOLDER MACHINE Gender Identity Not on file Sexual Orientation Not on file Last Filed Vital Signs Vital Sign Reading Time Taken Comments Blood Pressure 120/70 04/30/2024 10:01 AM CLOTH FOLDER MACHINE Pulse 86 04/30/2024 10:01 AM CLOTH FOLDER MACHINE Temperature 36.8 C (98.2 F) 01/29/2022 10:05 AM CDT Respiratory Rate 18 01/29/2022 10:05 AM CDT Oxygen Saturation 99% 04/30/2024 10:01 AM CLOTH FOLDER MACHINE Inhaled Oxygen Concentration - - Weight 72.8 kg (160 lb 8 oz) 04/30/2024 10:01 AM CLOTH FOLDER MACHINE Height 152.4 cm (5') 04/30/2024 10:01 AM CLOTH FOLDER MACHINE Body Mass Index 31.35 04/30/2024 10:01 AM CLOTH FOLDER MACHINE Plan of Treatment Health Maintenance Due Date Last Done Comments Depression Screening 1945 Hepatitis C Screening 1945 Hepatitis B Screening 1963 Well Visit 65+ 2010 Zoster Vaccine (2 of 3) 01/26/2011 12/01/2010 Fall Risk Assessment 02/12/2022 02/12/2021 Osteoporosis Screening-Bone Density Scan 05/19/2022 05/19/2020, 05/19/2020, 09/13/2016, Additional history exists Covid-19 Vaccine (3 - 2024-2 6 season) 2025 08/08/2020, 07/11/2020 Influenza Vaccine (#1) 2025 9, 01/29/2014, 02/12/2013, Additional history exists DTaP/Tdap/Td Vaccine (2 - Td or Tdap) 09/24/2031 09/23/2021, 04/21/2004 Pneumococcal vaccine 65+ Completed 10/16/2015, 03/17 Insurance MEDICARE MEDICARE [facility] MEDICARE [facility] MEDICARE SUPPLEMENT Care Teams Pricing Consultant Relationship Specialty Start Date End Date Homer Reveles MD PCP - General Internal Medicine 06/04/21 Homer Reveles MD Internal Medicine 06/04/21
--- OUTSIDE RECORDS SUMMARY | 2025-03-28 14:30 | XMS_ITS | Encounter Summary ---
Author Organization [facility] Address [address] [place] [address] Care Team Providers Care Digital Operations Analyst Name Role Phone Ashwini Ramos MD Primary Care Provider [phone] Encounter Details Date Type Department Care Team (Late st Contact Info) Description 02/16/2005 Outpatient Historical [facility] Internal Medicine Medical [place] A [facility] [address] [facility] [address] [address] Kyle Salinas MD [address] [address] Social History Tobacco Use Types Packs/Day Years Used Date Smoking Tobacco: Never Assessed Comments Unknown Sex and Gender Information Value Date Recorded Sex Assigned at Not on file Legal Sex Female 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
--- OUTSIDE RECORDS SUMMARY | 2025-03-28 14:30 | XMS_ITS | Encounter Summary ---
Author Organization [facility] Address [address] [place] [address] Care Team Providers Care Janitor And Cleaner Name Role Phone Ashwini Ramos MD Primary Care Provider [phone] Encounter Details Date Type Department Care Team (Late st Contact Info) Description 04/21/[address] [facility] Internal Medicine Medical [place] A [facility] [address] [facility] [address] [address] Wellington Melara MD [address] [place] [address] Social History Tobacco Use Types Packs/Day Years Used Date Smoking Tobacco: Never Assessed Comments Unknown Sex and Gender Information Value Date Recorded Sex Assigned at Not on file Legal Sex Female 4:52 AM HOUSE DETECTIVE Gender Identity Not on file Sexual Orientation Not on file documented as of this encounter Plan of Treatment Not on file documented as of this encounter Visit Diagnoses Not on filedocumented in this encounter Care Teams Janitor And Cleaner Relationship Specialty Start Date End Date Ashwini Ramos MD [address] [facility] [address] [place] [address] PCP - General Internal Medicine 12/04/15 DME 12/29/16 documented as of this encounter
--- OUTSIDE RECORDS SUMMARY | 2025-03-28 14:31 | XMS_ITS | Encounter Summary ---
Author Organization [facility] Address [address] [place] [address] Care Team Providers Care Pharmacy Data Analyst Name Role Phone Ashwini Ramos MD Primary Care Provider [phone] Encounter Details Date Type Department Care Team (Late st Contact Info) Description 03/03/2007 Orders Only [facility] Internal Medicine Medical [place] A [facility] [address] [facility] [address] [address] Kyle Salinas MD [address] [facility] [address] [place] [address] Social History Tobacco Use Types Packs/Day Years Used Date Smoking Tobacco: Never Assessed Comments Unknown Sex and Gender Information Value Date Recorded Sex Assigned at Not on file Legal Sex Female 4:52 AM DIRECTOR ERP Gender Identity Not on file Sexual Orientation [...] TSH with reflex LAB ORDERS: Order number: [id number] Test Ordered: TSH (REFLEX FREE T4/FREE T3) 1722 311-DEPRESSION ASSESSMENT: Patient's mood and affect are [...] one tablet b.i.d. LAB ORDERS: Order number: [id number] Test Ordered: XRAY TIBIA FIBULA LEFT Order number: [id number] Test Ordered: XRAY TIBIA FIBULA RIGHT 780.57-SLEEP APNEA ASSESSMENT: Improving compliance with CPAP RECOMMENDATIONS: Strongly encouraged patient utilize her CPAP on a nightly basis. 272.4-HYPERLIPIDEMIA ASSESSMENT: due for reassessment RECOMMENDATIONS: as below LAB ORDERS: Order number: [id number] Test Ordered: LIPID PANEL 1078 Order number: [id number] Test Ordered: COMPREHENSIVE METABOLIC PANEL & GFR 1112 V04.81-NEED FOR VACCINE INFLUENZA LAB ORDERS: Order number: [id number] Test Ordered: IMMUNIZATION ADMIN SINGLE 68773 Order number: [id number] Test Ordered: INJ-INFLUENZA ADULT 59937 719.46-PAIN JOINT KNEE LAB ORDERS: Order number: [id number] Test Ordered: XRAY KNEE (PATELLA) LEFT (4 [...] on filedocumented in this encounter Care Teams Pharmacy Data Analyst Relationship Specialty Start Date End Date Ashwini Ramos MD [address] [place] [address] PCP - General Internal Medicine 12/04/15 DME 12/29/16 documented as of this encounter
--- OUTSIDE RECORDS SUMMARY | 2025-03-28 14:31 | XMS_ITS | Encounter Summary ---
Author Organization [employer] Address [address] [place] [address] Care Team Providers Care Electronic Engraver Name Role Phone Ashwini Ramos MD Primary Care Provider [phone] Encounter Details Date Type Department Care Team (Latest Contact Info) Description 06/27/2003 Outpatient Historical [facility] Wellington Melara MD [address] [place] [address] SCREENING-CARDIOVAS C NEC (Primary Dx) Social History Tobacco Use Types Packs/Day Years Used Date Smoking Tobacco: Never Assessed Comments Unknown Sex and Gender Information Value Date Recorded Sex Assigned at Not on file Legal Sex Female 4:52 AM LEAD NURSE Gender Identity Not on file Sexual Orientation Not on file documented as of this encounter Plan of Treatment Not on file documented as of this encounter Visit Diagnoses Diagnosis Screening for other and unspecified cardiovascular conditions- Primary documented in this encounter Care Teams Electronic Engraver Relationship Specialty Start Date End Date Ashwini Ramos MD [address] [facility] [address] [place] [address] PCP - General Internal Medicine 12/04/15 DME 12/29/16 documented as of this encounter
--- OUTSIDE RECORDS SUMMARY | 2025-03-28 14:31 | XMS_ITS | Clinical Summary ---
Author Organization [facility] Address [address] [place] [address] Phone Care Team Providers Care Graphic Design Intern Name Role Phone Ashwini Ramos MD Primary Care Provider [phone] Allergies Active Allergy Reactions Criticality Noted Date Comments Amoxicillin Swelling Low Nickel Other (See Comments) 11/06/2014 Cheap jewelry; causes black to skin & soreness to earlobes Mwruwvz-Zfh-Nyz Reductase Inhibitors Muscle Pain Low 12/14/2018 Medications [...] 9 Active fluticasone propionate (FLONASE) 50 mcg/spray [place], Suspension nasal inhaler Administer 2 Sprays in [...] ipratropium bromide (ATROVENT) 42 mcg (0.06 %) [place], Non-AerosolIndic ations:Rhinorrhe a Administer 2 Sprays in [...] 2 years, bone density improved and stopped. [id number] Resolved Problems Problem Noted Date Diagnosed Date [...] week 04/28/2020 How often do you attend [facility] or spiritism services? 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 Not on file Not on file Not on file Not on file Not on file Not on file Not on file Last Filed Vital Signs Vital Sign Reading Time Taken Comments Blood Pressure 128/60 04/28/2020 9:19 AM BAR TACKER Pulse 87 04/28/2020 9:19 AM BAR TACKER Temperature 36.8 C (98.3 F) 02/14/2019 11:29 AM CDT Respiratory Rate 16 04/28/2020 9:19 AM BAR TACKER Oxygen Saturation 99% 04/28/2020 9:19 AM BAR TACKER Inhaled Oxygen Concentration - - Weight 78.5 kg (173 lb) 05/23/2020 10:18 AM BAR TACKER Height 160 cm (5' 2.99) 05/23/2020 10:18 AM BAR TACKER Body Mass Index 30.65 05/23/2020 10:18 AM BAR TACKER Plan of Treatment Health Maintenance Due Date [...] years Discontinued Medical Devices Implanted Type Area [employer] Barista Device Identifier Shelf Expiration Date Model / Serial / Lot Biomet Bone Cement Implanted:Qt y: 2 on 07/20/2018 by Wellington Hsu MD at [facility] Cement Right: Knee [employer] [id number] 12/13/2022 [id number] / / [id number] Description:requisition # [id number]. Shell G7 Pps Lmtd Hl 54mm [id number] - [id number] Implanted:Qt y: 1 on 12/19/2014 by Wellington Hsu MD at [facility] Hip Left: Hip [employer] 10/13/2024 [id number] / / [id number] Description:PROCESSED ON REQ UISITION,[id number]. Liner Arcomxl Neut 40mm Szf [id number] - [id number] Implanted:Qt y: 1 on 12/19/2014 by Wellington Hsu MD at [facility] Hip Left: Hip [employer] 11/12/2018 [id number] / / [id number] Stem Fem Echo Bimetric Por Nc 378790 - [id number] Implanted:Qt y: 1 on 12/19/2014 by Wellington Hsu MD at [facility] Hip Left: Hip [employer] 11/14/2024 [id number] / / [id number] Slv Biolox Delta Optn Type 1 650-1065 - [id number] Implanted:Qt y: 1 on 12/19/2014 by Wellington Hsu MD at [facility] Hip Left: Hip [employer] 03/15/2023 650-1065 / / [id number] Head Fem Biolox Option 40mm 650-1058 - [id number] Implanted:Qt y: 1 on 12/19/2014 by Wellington Hsu MD at [facility] Hip Left: Hip [employer] 12/13/2024 650-1058 / / [id number] Shell G7 Pps Lmtd Hl 54mm [id number] - [id number] Implanted:Qt y: 1 on 09/05/2017 by Wellington Hsu MD at [facility] Hip Right: Acetabulum [employer] [id number] 08/12/2027 [id number] / / [id number] Description:REQUISITION # 78 [id number] Liner Arcomxl Neut 36mm Szf [id number] - [id number] Implanted:Qt y: 1 on 09/05/2017 by Wellington Hsu MD at [facility] Hip Right: Acetabulum [employer] [id number] 07/17/2022 [id number] / / [id number] Stem Fem Echo Bimetric Por Nc 383422 - [id number] Implanted:Qt y: 1 on 09/05/2017 by Wellington Hsu MD at [facility] Hip Right: Hip [employer] 05/30/2027 [id number] / / [id number] Head Fem Mod Cer Biolox 36mm [id number] - [id number] Implanted:Qt y: 1 on 09/05/2017 by Wellington Hsu MD at [facility] Hip Right: Hip [employer] 01/26/2027 [id number] / / [id number] Patella 3peg Series A 066976 - [id number] Implanted:Qt y: 1 on 07/20/2018 by Wellington Hsu MD at [facility] Knee Right: Knee [employer] 06/12/2023 [id number] / / [id number] Comp Tib Intrlk Prim 75mm [id number] - [id number] Implanted:Qt y: 1 on 07/20/2018 by Wellington Hsu MD at [facility] Knee Right: Knee [employer] 09/27/2027 [id number] / / [id number] Stem Tib Prim Finned 40mm 595686 - [id number] Implanted:Qt y: 1 on 07/20/2018 by Wellington Hsu MD at [facility] Knee Right: Knee [employer] 06/24/2028 [id number] / / [id number] Comp Fem Vngrd Ti 65mm [id number] - [id number] Implanted:Qt y: 1 on 07/20/2018 by Wellington Hsu MD at [facility] Knee Right: Knee [employer] 06/19/2028 [id number] / / [id number] Brg Tib Vngrd Ant Stblzd [id number] - [id number] Implanted:Qt y: 1 on 07/20/2018 by Wellington Hsu MD at [facility] Knee Right: Knee [employer] 05/30/2023 [id number] / / [id number] Screw G7 Lp 6.5x25mm [id number] - [id number] Implanted:Qt y: 1 on 12/19/2014 by Wellington Hsu MD at [facility] Screw Left: Hip [employer] 06/15/2024 [id number] / / [id number] Screw G7 Lp 6.5x25mm [id number] - [id number] Implanted:Qt y: 1 on 09/05/2017 by Wellington Hsu MD at [facility] Screw Right: Acetabulum [employer] [id number] 06/21/2027 [id number] / / [id number] Procedures Procedure Name Priority Date/Time Associated Diagnosis Comments XR DEXA BONE DENSITY AXIAL 1 OR MORE SITES Routine 05/19/2020 1:12 PM BAR TACKER Osteopenia, unspecified location Medicare annual wellness visit, subsequent Post-menopausal from Last 3 Months or Most Recently Relevant to Health Maintenance Results * XR DEXA BONE DENSITY AXIAL 1 OR MORE SITES (05/19/2020 1:12 PM BAR TACKER) Anatomical Region Laterality Modality Digital Radiogra phy 05/19/2020 1:12 PM BAR TACKER Narrative 05/19/2020 2:57 PM BAR TACKER XR DEXA BONE DENSITY AXIAL 1 OR MORE SITES DATE: 05/19/2020 1:12 PM HISTORY: 75 years old Female with post menopausal symptoms. PROCEDURE: Planar images of the lumbar spine, forearm using a [employer] DEXA scanner for bone mineral density determination [...] 2 years thereafter Dictated by Dr. Aki Weems. DO Whit DICTATION LOCATION: Location 1 - [facility] Procedure Note Aki Sherman DO - 05/19/2020 XR DEXA BONE DENSITY AXIAL 1 OR MORE SITES DATE: 05/19/2020 1:12 PM HISTORY: 75 years old Female with post menopausal symptoms. PROCEDURE: Planar images of the lumbar spine, forearm using a [employer] DEXA scanner for bone mineral density determination [...] Dr. Aki Sherman, DO DICTATION LOCATION: Location [address] [place] [address] Jahaira Sims SENIOR BUSINESS OBJECTS DEVELOPER DIAGNOSTIC IMAGING ORDCharlene PEREZ Final Result from Last 3 Months or Most Recently Relevant to Health Maintenance Insurance MEDICARE PART A AND B [employer] MEDICARE SUPP AESSI RX [email or web address] Medicare Part D RX ALLWIN DATA Medicare Part B Advance Directives For more information, please contact: [phone] * Full Code (Latest Code Status on [...] 9:59 AM 09/05/2017 3:37 PM Care Teams Graphic Design Intern Relationship Specialty Start Date End Date Ashwini Ramos MD [address] [place] [address] PCP - General Internal Medicine 12/04/15 DME 12/29/16
--- OUTSIDE RECORDS SUMMARY | 2025-03-28 14:31 | XMS_ITS | Encounter Summary ---
Author Organization [employer] Address [address] [place] [address] Care Team Providers Care Wood Window And Door Craftsman Name Role Phone Ashwini Ramos MD Primary Care Provider [phone] Encounter Details Date Type Department Care Team (Late st Contact Info) Description 04/21/2007 Outpatient Historical [facility] Kyle Salinas MD [address] [place] [address] Osteoarth NOS-Unspec Social History Tobacco Use Types Packs/Day Years Used Date Smoking Tobacco: Never Assessed Comments Unknown Sex and Gender Information Value Date Recorded Sex Assigned at Not on file Legal Sex Female 4:52 AM HEALTH INFORMATION TECH Gender Identity Not on file Sexual Orientation Not on file documented as of this encounter Plan of Treatment Not on file documented as of this encounter Visit Diagnoses Diagnosis Osteoarthrosis, unspecified whether generalized or localized, unspecified site documented in this encounter Care Teams Wood Window And Door Craftsman Relationship Specialty Start Date End Date Ashwini Ramos MD [address] [place] [address] [address] [place] [address] PCP - General Internal Medicine 12/04/15 DME 12/29/16 documented as of this encounter
--- OUTSIDE RECORDS SUMMARY | 2025-03-28 14:31 | XMS_ITS | Encounter Summary ---
Author Organization [facility] Address [address] [place] [address] Care Team Providers Care Airways Control Specialist Name Role Phone Ashwini Ramos MD Primary Care Provider [phone] Encounter Details Date Type Department Care Team (Late st Contact Info) Description 04/21/2004 Outpatient Historical [facility] Internal Medicine Medical [place] [facility] [address] [facility] [address] [address] Wellington Melara MD [address] [place] [address] Social History Tobacco Use Types Packs/Day Years Used Date Smoking Tobacco: Never Assessed Comments Unknown Sex and Gender Information Value Date Recorded Sex Assigned at Not on file Legal Sex Female 4:52 AM VISITOR SERVICES COORDINATOR Gender Identity Not on file Sexual Orientation Not on file documented as of this encounter Plan of Treatment Not on file documented as of this encounter Visit Diagnoses Not on filedocumented in this encounter Care Teams Airways Control Specialist Relationship Specialty Start Date End Date Ashwini Ramos MD [address] [facility] [address] [place] [address] PCP - General Internal Medicine 12/04/15 DME 12/29/16 documented as of this encounter
--- OUTSIDE RECORDS SUMMARY | 2025-03-28 14:31 | XMS_ITS | Encounter Summary ---
Author Organization [facility] Address [address] [place] [address] Care Team Providers Care Tunneller Name Role Phone Ashwini Ramos MD Primary Care Provider [phone] Encounter Details Date Type Department Care Team (Late st Contact Info) Description 07/31/1999 Outpatient Historical [facility] Internal Medicine Medical [place] [facility] [address] [address] Wellington Melara MD [address] [place] [address] Social History Tobacco Use Types Packs/Day Years Used Date Smoking Tobacco: Never Assessed Comments Unknown Sex and Gender Information Value Date Recorded Sex Assigned at Not on file Legal Sex Female 4:52 AM CLEARING TUB WORKER Gender Identity Not on file Sexual Orientation Not on file documented as of this encounter Plan of Treatment Not on file documented as of this encounter Visit Diagnoses Not on filedocumented in this encounter Care Teams Tunneller Relationship Specialty Start Date End Date Ashwini Ramos MD [address] [facility] [address] [place] [address] PCP - General Internal Medicine 12/04/15 DME 12/29/16 documented as of this encounter
--- OUTSIDE RECORDS SUMMARY | 2025-03-28 14:31 | XMS_ITS | Encounter Summary ---
Author Organization [facility] Address [address] [place] [address] Care Team Providers Care Laundry Operator Wash Room Name Role Phone Ashwini Ramos MD Primary Care Provider [phone] Encounter Details Date Type Department Care Team (Late st Contact Info) Description 07/30/1998 Outpatient Historical [facility] Internal Medicine Medical [place] [facility] [address] [facility] [address] [address] Wellington Melara MD [address] [place] [address] Social History Tobacco Use Types Packs/Day Years Used Date Smoking Tobacco: Never Assessed Comments Unknown Sex and Gender Information Value Date Recorded Sex Assigned at Not on file Legal Sex Female 4:52 AM TIN STACKER Gender Identity Not on file Sexual Orientation Not on file documented as of this encounter Plan of Treatment Not on file documented as of this encounter Visit Diagnoses Not on filedocumented in this encounter Care Teams Laundry Operator Wash Room Relationship Specialty Start Date End Date Ashwini Ramos MD [address] [facility] [address] [place] [address] PCP - General Internal Medicine 12/04/15 DME 12/29/16 documented as of this encounter
--- OUTSIDE RECORDS SUMMARY | 2025-03-28 14:31 | XMS_ITS | Encounter Summary ---
Author Organization [facility] Address [address] [place] [address] Care Team Providers Care E Commerce Marketing Analyst Name Role Phone Ashwini Ramos MD Primary Care Provider [phone] Encounter Details Date Type Department Care Team (Latest Contact Info) Description 10/16/2008 Outpatient Historical [facility] Elizabeth Avila MD [address] [place] [address] Other Screening Mammogram Social History Tobacco Use Types Packs/Day Years Used Date Smoking Tobacco: Never Alcohol Use Standard Drinks/Week Comments Yes 0 (1 standard drink = 0.6 oz pur e alcohol) rarely Comments No Sex and Gender Information Value Date Recorded Sex Assigned at Not on file Legal Sex Female 4:52 AM SET UP INSPECTOR Gender Identity Not on file Sexual [...] AM CDT Narrative 10/17/2008 7:48 AM CDT [place] [address] [place], [place] [address] Admit Date: 10/16/2008 MERARI RUIZ Gloria Sex: F Admit Prov: ELIZABETH BRAGA Date: 1945 Primary Care Prov: ELIZABETH BRAGA CMRN: [id number] [facility] N: [id number] IMAGING SERVICES Ordering Prov: ELIZABETH BRAGA Accession Number: [id number] Interpretation BILATERAL FULL FIELD DIGITAL SCREENING MAMMOGRAM [...] AMK Procedure Note Kezia Anguiano - 10/17/2008 [place] [address] [place] [address] Admit Date: 10/16/2008 MERARI RUIZ Gloria Sex: F Admit Prov: ELIZABETH BRAGA Date: 1945 Primary Care Prov: ELIZABETH BRAGA CMRN: [id number] [facility] SSN: [id number] IMAGING SERVICES Ordering Prov: ELIZABETH BRAGA Interpretation [...] mammogram documented in this encounter Care Teams E Commerce Marketing Analyst Relationship Specialty Start Date End Date Ashwini Ramos MD [address] [place] [address] PCP - General Internal Medicine 12/04/15 DME 12/29/16 documented as of this encounter
--- OUTSIDE RECORDS SUMMARY | 2025-03-28 14:31 | XMS_ITS | Encounter Summary ---
Author Organization [facility] Address [address] [place] [address] Care Team Providers Care Career Services Coordinator Name Role Phone Ashwini Ramos MD Primary Care Provider [phone] Encounter Details Date Type Department Care Team (Latest Contact Info) Description 06/13/2002 Outpatient Historical [facility] Wellington Melara MD [address] [place] [address] PURE HYPERCHOLESTEROLEM (Primary Dx) Social History Tobacco Use Types Packs/Day Years Used Date Smoking Tobacco: Never Assessed Comments Unknown Sex and Gender Information Value Date Recorded Sex Assigned at Not on file Legal Sex Female 4:52 AM BUYING INTERN Gender Identity Not on file Sexual Orientation Not on file documented as of this encounter Plan of Treatment Not on file documented as of this encounter Visit Diagnoses Diagnosis Pure hypercholesterolemia- Primary documented in this encounter Care Teams Career Services Coordinator Relationship Specialty Start Date End Date Ashwini Ramos MD [address] [facility] [address] [place] [address] PCP - General Internal Medicine 12/04/15 DME 12/29/16 documented as of this encounter
--- OUTSIDE RECORDS SUMMARY | 2025-03-28 14:31 | XMS_ITS | Encounter Summary ---
Author Organization [facility] Address [address] [place] [address] Care Team Providers Care Server Developer Name Role Phone Ashwini Ramos MD Primary Care Provider [phone] Encounter Details Date Type Department Care Team (Late st Contact Info) Description 03/03/2007 Outpatient Historical [facility] Internal Medicine Medical [place] A [facility] [address] [facility] [address] [address] Kyle Salinas MD [address] [address] Social History Tobacco Use Types Packs/Day Years Used Date Smoking Tobacco: Never Assessed Comments Unknown Sex and Gender Information Value Date Recorded Sex Assigned at Not on file Legal Sex Female 4:52 AM PRODUCT ADVISOR Gender Identity Not on file Sexual Orientation Not on file documented as of this encounter Plan of Treatment Not on file documented as of this encounter Visit Diagnoses Not on filedocumented in this encounter Care Teams Server Developer Relationship Specialty Start Date End Date Ashwini Ramos MD [address] [facility] [address] [place] [address] PCP - General Internal Medicine 12/04/15 DME 12/29/16 documented as of this encounter
--- OUTSIDE RECORDS SUMMARY | 2025-03-28 14:31 | XMS_ITS | Encounter Summary ---
Author Organization [facility] Address [address] [place] [address] Care Team Providers Care Tank Stave Assembler Name Role Phone Ashwini Ramos MD Primary Care Provider [phone] Encounter Details Date Type Department Care Team (Late st Contact Info) Description 10/14/2006 Outpatient Historical [facility] Internal Medicine Medical [place] A [email or web address] [address] [facility] [address] [address] Kyle Salinas MD [address] [facility] [address] [place] [address] Social History Tobacco Use Types Packs/Day Years Used Date Smoking Tobacco: Never Assessed Comments Unknown Sex and Gender Information Value Date Recorded Sex Assigned at Not on file Legal Sex Female 4:52 AM PAYABLE MANAGER Gender Identity Not on file Sexual [...] on filedocumented in this encounter Care Teams Tank Stave Assembler Relationship Specialty Start Date End Date Ashwini Ramos MD [address] [place] [address] PCP - General Internal Medicine 12/04/15 DME 12/29/16 documented as of this encounter
--- OUTSIDE RECORDS SUMMARY | 2025-03-28 14:31 | XMS_ITS | Encounter Summary ---
Author Organization [facility] Address [address] [place] [address] Care Team Providers Care Patient Services Clerk Name Role Phone Ashwini Ramos MD Primary Care Provider [phone] Encounter Details Date Type Department Care Team (Late st Contact Info) Description 10/16/1998 Outpatient Historical [facility] Internal Medicine Medical [place] A [facility] [address] [facility] [address] [address] Wellington Melara MD [address] [place] [address] Social History Tobacco Use Types Packs/Day Years Used Date Smoking Tobacco: Never Assessed Comments Unknown Sex and Gender Information Value Date Recorded Sex Assigned at Not on file Legal Sex Female 4:52 AM FELT HAT POUNCING OPERATOR HAND Gender Identity Not on file Sexual Orientation Not on file documented as of this encounter Plan of Treatment Not on file documented as of this encounter Visit Diagnoses Not on filedocumented in this encounter Care Teams Patient Services Clerk Relationship Specialty Start Date End Date Ashwini Ramos MD [address] [facility] [address] [place] [address] PCP - General Internal Medicine 12/04/15 DME 12/29/16 documented as of this encounter
--- OUTSIDE RECORDS SUMMARY | 2025-03-28 14:31 | XMS_ITS | Encounter Summary ---
Author Organization [facility] Address [address] [place] [address] Care Team Providers Care Signal Intelligence/Electronic Warfare Name Role Phone Ashwini Ramos MD Primary Care Provider [phone] Encounter Details Date Type Department Care Team (Late st Contact Info) Description 07/17/2007 Orders Only [facility] Internal Medicine Medical [place] A [facility] [address] [facility] [address] [address] Kyle Salinas MD [address] [address] Social History Tobacco Use Types Packs/Day Years Used Date Smoking Tobacco: Never Assessed Comments Unknown Sex and Gender Information Value Date Recorded Sex Assigned at Not on file Legal Sex Female 4:52 AM PEOPLESOFT BUSINESS ANALYST Gender Identity Not on file Sexual Orientation Not on file documented as of this encounter Plan of Treatment Not on file documented as of this encounter Visit Diagnoses Not on filedocumented in this encounter Care Teams Signal Intelligence/Electronic Warfare Relationship Specialty Start Date End Date Ashwini Ramos MD [address] [facility] [address] [place] [address] PCP - General Internal Medicine 12/04/15 DME 12/29/16 documented as of this encounter
--- OUTSIDE RECORDS SUMMARY | 2025-03-28 14:31 | XMS_ITS | Encounter Summary ---
Author Organization [facility] Address [address] [place] [address] Care Team Providers Care Senior Cost Estimator Name Role Phone Ashwini Ramos MD Primary Care Provider [phone] Encounter Details Date Type Department Care Team (Late st Contact Info) Description 12/07/2001 Outpatient Historical [facility] Internal Medicine Medical [place] A [facility] [address] [facility] [address] [address] Wellington Melara MD [address] [place] [address] Social History Tobacco Use Types Packs/Day Years Used Date Smoking Tobacco: Never Assessed Comments Unknown Sex and Gender Information Value Date Recorded Sex Assigned at Not on file Legal Sex Female 4:52 AM RELOCATION SPECIALIST Gender Identity Not on file Sexual Orientation Not on file documented as of this encounter Plan of Treatment Not on file documented as of this encounter Visit Diagnoses Not on filedocumented in this encounter Care Teams Senior Cost Estimator Relationship Specialty Start Date End Date Ashwini Ramos MD [address] [facility] [address] [place] [address] PCP - General Internal Medicine 12/04/15 DME 12/29/16 documented as of this encounter
--- OUTSIDE RECORDS SUMMARY | 2025-03-28 14:31 | XMS_ITS | Encounter Summary ---
Author Organization [facility] Address [address] [place] [address] Care Team Providers Care Auto Glass Worker Name Role Phone Ashwini Ramos MD Primary Care Provider [phone] Encounter Details Date Type Department Care Team (Late st Contact Info) Description 04/24/1998 Outpatient Historical [facility] Internal Medicine Medical [place] A [facility] [address] [facility] [address] [address] Wellington Melara MD [address] [place] [address] Social History Tobacco Use Types Packs/Day Years Used Date Smoking Tobacco: Never Assessed Comments Unknown Sex and Gender Information Value Date Recorded Sex Assigned at Not on file Legal Sex Female 4:52 AM THERMOGRAPH OPERATOR Gender Identity Not on file Sexual Orientation Not on file documented as of this encounter Plan of Treatment Not on file documented as of this encounter Visit Diagnoses Not on filedocumented in this encounter Care Teams Auto Glass Worker Relationship Specialty Start Date End Date Ashwini Ramos MD [address] [facility] [address] [place] [address] PCP - General Internal Medicine 12/04/15 DME 12/29/16 documented as of this encounter
--- OUTSIDE RECORDS SUMMARY | 2025-03-28 14:31 | XMS_ITS | Encounter Summary ---
Author Organization [facility] Address [address] [place] [address] Care Team Providers Care Cross Tie Maker Name Role Phone Ashwini Ramos MD Primary Care Provider [phone] Encounter Details Date Type Department Care Team [...] on file Legal Sex Female 4:52 AM MONORAIL HELPER Gender Identity Not on file Sexual Orientation Not on file Occupation Industry Job Start Date Job End Date 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 Not on file Not on file Not on file documented as of this encounter Plan of Treatment Not on file documented as of this encounter Visit Diagnoses Not on filedocumented in this encounter Care Teams Cross Tie Maker Relationship Specialty Start Date End Date Ashwini Ramos MD [address] [place] [address] PCP - General Internal Medicine 12/04/15 DME 12/29/16 documented as of this encounter
--- OUTSIDE RECORDS SUMMARY | 2025-03-28 14:31 | XMS_ITS | Encounter Summary ---
Author Organization [facility] Address [address] [place] [address] Care Team Providers Care Commodity Analyst Name Role Phone Ashwini Ramos MD Primary Care Provider [phone] Encounter Details Date Type Department Care Team (Late st Contact Info) Description 09/07/2000 Outpatient Historical [facility] Internal Medicine Medical [place] A [facility] [address] [facility] [address] [address] Wellington Melara MD [address] [place] [address] Social History Tobacco Use Types Packs/Day Years Used Date Smoking Tobacco: Never Assessed Comments Unknown Sex and Gender Information Value Date Recorded Sex Assigned at Not on file 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 [facility] [address] [place] [address] PCP - General Internal Medicine 12/04/15 DME 12/29/16 documented as of this encounter
--- OUTSIDE RECORDS SUMMARY | 2025-03-28 14:31 | XMS_ITS | Encounter Summary ---
Author Organization [facility] Address [address] [place] [address] Care Team Providers Care Development Disability Specialist Name Role Phone Ashwini Ramos MD Primary Care Provider [phone] Encounter Details Date Type Department Care Team (Late st Contact Info) Description 03/13/2007 Orders Only [facility] Internal Medicine Medical [place] A [facility] [address] [facility] [address] [address] Kyle Salinas MD [address] [address] Social History Tobacco Use Types Packs/Day Years Used Date Smoking Tobacco: Never Assessed Comments Unknown Sex and Gender Information Value Date Recorded Sex Assigned at Not on file 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 [facility] [address] [place] [address] PCP - General Internal Medicine 12/04/15 DME 12/29/16 documented as of this encounter
--- OUTSIDE RECORDS SUMMARY | 2025-03-28 14:31 | XMS_ITS | Encounter Summary ---
Author Organization [facility] Address [address] [place] [address] Care Team Providers Care Apigee Developer Name Role Phone Ashwini Ramos MD Primary Care Provider [phone] Encounter Details Date Type Department Care Team (Late st Contact Info) Description 10/14/[address] 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
--- OUTSIDE RECORDS SUMMARY | 2025-03-28 14:31 | XMS_ITS | Encounter Summary ---
Author Organization [facility] Address [address] [place] [address] Care Team Providers Care Loan Broker Name Role Phone Ashwini Raoms MD Primary Care Provider [phone] Encounter Details Date Type Department Care Team (Late st Contact Info) Description 01/10/2003 Outpatient Historical [facility] Internal Medicine Medical [place] A [facility] [address] [facility] [address] [address] Wellington Melara MD [address] [place] [address] Social History Tobacco Use Types Packs/Day Years Used Date Smoking Tobacco: Never Assessed Comments Unknown Sex and Gender Information Value Date Recorded Sex Assigned at Not on file 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 [facility] [address] [place] [address] PCP - General Internal Medicine 12/04/15 DME 12/29/16 documented as of this encounter
--- OUTSIDE RECORDS SUMMARY | 2025-03-28 14:31 | XMS_ITS | Encounter Summary ---
Author Organization [facility] Address 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
--- OUTSIDE RECORDS SUMMARY | 2025-03-28 14:31 | XMS_ITS | Encounter Summary ---
Author Organization [facility] Address [address] [place] [address] Care Team Providers Care Skin Therapist Name Role Phone Ashwini Ramos MD Primary Care Provider [phone] Encounter Details Date Type Department Care Team (Late st Contact Info) Description 03/03/2007 Outpatient Historical [facility] Internal Medicine Medical [place] A [facility] [address] [facility] [address] [address] Kyle Salinas MD [address] [address] Social History Tobacco Use Types Packs/Day Years Used Date Smoking Tobacco: Never Assessed Comments Unknown Sex and Gender Information Value Date Recorded Sex Assigned at Not on file 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 [facility] [address] [place] [address] PCP - General Internal Medicine 12/04/15 DME 12/29/16 documented as of this encounter
--- OUTSIDE RECORDS SUMMARY | 2025-03-28 14:31 | XMS_ITS | Encounter Summary ---
Author Organization [facility] Address [address] [place] [address] Care Team Providers Care Analysis Lead Name Role Phone Ashwini Ramos MD Primary Care Provider [phone] Encounter Details Date Type Department Care Team (Late st Contact Info) Description 06/27/2003 Outpatient Historical [facility] Support Serv. (Adt Cardiology[facility]) [address] 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
--- OUTSIDE RECORDS SUMMARY | 2025-03-28 14:31 | XMS_ITS | Clinical Summary ---
Author Organization [facility] Address [address] [place] [address] Care Team Providers Care Blister Pack Operator Name Role Phone Homer Reveles MD Primary Care Provider [phone] Source Comments [facility],non-owned Affiliates and Associated Physician Practices is amultiple site organization consisting of ambulatory clinics and hospital sitesin [place], [place], [place] and [place]. This disclosure is being madepursuant to the Care Everywhere program and may not contain all information available regarding this patient. Last updated 18.[facility] [employer] Allergies Active Allergy Reactions Criticality Noted Date [...] 76.7 kg (169 lb) 06/16/2022 9:55 AM DIRECTOR OF NEUROLOGY Height 160 cm (5' 3) 06/16/2022 9:55 AM DIRECTOR OF NEUROLOGY Body Mass Index 29.94 06/16/2022 9:55 AM DIRECTOR OF NEUROLOGY Plan of Treatment Upcoming Encounters Date Type Department Care Team (Late st Contact Info) Description 04/02/2025 1:10 PM DIRECTOR OF NEUROLOGY Office Visit [facility] [address] [phone] [place] [address] [address] Health Maintenance Due Date Last Done Comments BONE DENSITY TESTING 1945 MEDICARE AWV 12 MONTHS 1945 PNEUMOCOCCAL VACCINE 50+ (1 of 1 - PCV) 1995 ZOSTER VACCINE (1 of 2) 1995 Respiratory Syncytial Virus (RSV) Vaccine Pt: or over 60 yrs (1 - 1-dose 75+ series) 2020 DEPRESSION SCREENING 05/16/2024 COVID-19 VACCINE ( - 2024- season) 2025 INFLUENZA VACCINE (#1) 2025 9, 01/29/2014, 02/12/2013, [...] this topic Medical Devices Implanted Type Area Appliance Service Representative Device Identifier Shelf Expiration Date Model / Serial / Lot Screw 2.7mm 14mm T15 Lck Lopro Slf-Tap Implanted:Qty: 1 on 09/23/2021 by Jhonatan Palma MD at [facility] Left: Ankle [employer] 4 / / Screw 3.5mm 14mm Ft Slf-Tap Lopro Head Implanted:Qty: 1 on 09/23/2021 by Jhonatan Palma MD at [facility] [employer] 4 / / Screw 3.5mm 16mm Ft Slf-Tap Hex Lopro Implanted:Qty: 1 on 09/23/2021 by Jhonatan Palma MD at [facility] [employer] 6 / / Screw 3.5mm 48mm Ft Slf-Tap Hex Lopro Implanted:Qty: 1 on 09/23/2021 by Jhonatan Palma MD at [facility] [employer] 8 / / Plate 6 Hl Lck Lopro Fib Lt Dist 139mm Implanted:Qty: 1 on 09/23/2021 by Jhonatan Palma MD at [facility] Left: Ankle [employer] 6 / / Screw 2.7mm 16mm T15 Lck Lopro Slf-Tap Implanted:Qty: 3 on 09/23/2021 by Jhonatan Palma MD at [facility] Left: Ankle [employer] 6 / / Screw 2.7mm 18mm T15 Lck Lopro Slf-Tap Implanted:Qty: 1 on 09/23/2021 by Jhonatan Palma MD at [facility] Left: Ankle [employer] 8 / / Screw 3.5mm 50mm Lopro Can Nonster Bone Implanted:Qty: 1 on 09/23/2021 by Jhonatan Palma MD at [facility] Left: Ankle [employer] 0 / / Screw 4mm 40mm Ft Neelima Std Head Canc Tmx Implanted:Qty: 1 on 09/23/2021 by Jhonatan Palma MD at [facility] Left: Ankle [employer] [id number] / / Screw 2.7mm 30mm Ft Nonlock Hex Drv Elb Implanted:Qty: 1 on 09/23/2021 by Jhonatan Palma MD at [facility] [employer] 0 / / Explanted Type Area Appliance Service Representative Device Identifier Shelf Expiration Date Model / Serial / Lot Screw 3.5mm 12mm Ft Slf-Tap Hex Lopro Explanted:Qty: 1 on 09/23/2021 by Jhonatan Palma MD at [facility] [employer] [id number] / / Screw 3.5mm 14mm Ft Slf-Tap Lopro Head Explanted:Qty: 1 on 09/23/2021 by Jhonatan Palma MD at [facility] [employer] [id number] / / Wire K 1.6mm 6in Hlf Bynt Pnt Ss Fx Explanted:Qty: 2 on 09/23/2021 by Jhonatan Palma MD at [facility] [employer] [id number] / / Screw 2.7mm 14mm T15 Lck Lopro Slf-Tap Explanted:Qty: 1 on 09/23/2021 by Jhonatan Palma MD at [facility] Left: Ankle [employer] [id number] / / Screw 4mm 42mm Ft Neelima Std Head Canc Tmx Explanted:Qty: 1 on 09/23/2021 by Jhonatan Palma MD at [facility] Left: Ankle [employer] [id number] / / Insurance MEDICARE [facility] MEDICARE ANTHEM Advance Directives * Full Code (Latest Code Status on File) Date Activated Date Inactivated Comments 09/23/2021 2:39 PM 09/26/2021 4:31 PM Care Teams Blister Pack Operator Relationship Specialty Start Date End Date Homer Reveles MD [address] [place] [id number] PCP - General Internal Medicine 09/23/21
== END 2025-03-28 13:59 | disposition home or self-care (01) ==
PROVIDERS: PCP Internal Medicine; Visit Provider Internal Medicine
DX: Z12.31 Encounter for screening mammogram for malignant neoplasm of breast (principal); Z78.0 Asymptomatic menopausal state
CPT/HCPCS: 77063; 77067; 77080